=== PATIENT | male | born 1935 | race Caucasian/White ===

== ENCOUNTER 2017-06-01 00:09 | Emergency (ER) | payer MEDICARE, OTHER ==
[2017-06-01 00:18] VITALS: BP 131/76; PULSE 100; O2SAT 94
[2017-06-01] MEDS ORDERED: TYLENOL 325 MG PO ONE (00:28)
--- NOTE | 2017-06-01 00:31 | ERPHSYRPT ---
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 PT DENIES HEADACHE, NECK PAIN, ABDOMINAL PAIN , CHEST PAIN, LOC. Allergies/Adverse Reactions: iodine Allergy (Severe, Verified 06/01/17 00:22) Difficulty Breathing shellfish derived Allergy (Severe, Verified 06/01/17 00:22) Difficulty Breathing Home Medications: Warfarin Sodium 5 mg [Coumadin 5 MG] 5 mg PO HS 11/09/12 [History] Alprazolam 0.25 mg [xanAX 0.25 MG] 0.25 mg PO TIDPRN PRN 06/04/14 [History ] Aspirin 81 gm Chew [Baby Aspirin 81 mg Chew] 81 mg PO DAILY 06/04/14 [ History] Bumetanide 1 mg [Bumex 1 mg] 1.5 mg PO BID 06/04/14 [History] Diclofenac Sodium/Misoprostol [Diclofenac-Misoprost 50-200 Tb] 50,200 mg PO BID 06/04/14 [History] Digoxin 0.125 mg Tablet [Lanoxin 0.125MG TABLET] 125 mcg PO HS 06/04/14 [ History] Docusate Sodium 100 mg [Colace 100 MG] 100 mg PO BID 06/04/14 [History] Metolazone 5 mg PO DAILY 06/04/14 [History] Metoprolol Succinate 50 mg [Toprol Xl 50 MG] 25 mg PO BID 06/04/14 [ History] Potassium Chloride [Klor-Con 10] 10 meq PO TID 06/04/14 [History] Fexofenadine HCl [Liyah Allergy] 180 mg PO DAILY 08/29/15 [History] Warfarin Sodium 2 mg [Coumadin 2 MG] 2 mg PO HS 08/29/15 [History] Hx Tetanus, Diphtheria Vaccination/Date Given: No Hx Influenza Vaccination/Date Given: Yes (2012) Hx Pneumococcal Vaccination/Date Given: Yes (2012) - Review of Systems Cardiac: No Chest Pain Abdominal/Gastrointestinal: No Abdominal Pain Musculoskeletal: Joint Pain (RIGHT SHOULDER/ARM PAIN TONIGHT.), Other (CHRONIC ANKLE EDEMA FOR YEARS.), No Neck Pain Neurological: No Headache All Other Systems: Reviewed and Negative - Past Medical History Pertinent Past Medical History: Yes Neurological History: Peripheral Neuropathy ENT History: No Pertinent History Cardiac History: Arrhythmia Respiratory History: COPD, Sleep Apnea, Other Endocrine Medical History: No Pertinent History Musculoskeletal History: Osteoarthritis GI Medical History: No Pertinent History History: Other Psycho-Social History: No Pertinent History Male Reproductive Disorders: No Pertinent History Other Medical History: 2L O2 at night, - Past Surgical History Past Surgical History: Yes Neuro Surgical History: No Pertinent History Cardiac: No Pertinent History Respiratory: No Pertinent History Gastrointestinal: No Pertinent History Genitourinary: No Pertinent History Musculoskeletal: Joint Replacement Male Surgical History: Prostate Surgery Other Surgical History: HIP 2009. TURP 1999. - Social History Smoking Status: Former smoker Exposure to second hand smoke: No Drug Use: none Patient Lives Alone: No - Nursing Vital Signs Nursing Vital Signs: Initial Vital Signs Temperature 99.5 F 06/01/17 00:16 Pulse Rate 100 H 06/01/17 00:16 Respiratory Rate 24 06/01/17 00:16 Blood Pressure 131/76 06/01/17 00:16 O2 Sat by Pulse Oximetry 94 L 06/01/17 00:16 Pain Scale Pain Intensity 8 - Physical Exam General Appearance: alert Eyes, Ears, Nose, Throat Exam: pharynx normal, moist mucous membranes Neck Exam: normal inspection, full range of motion Cardiovascular/Respiratory Exam: chest non-tender, normal breath sounds, heart sounds normal Abdominal Exam: soft, No tenderness Back Exam: normal range of motion Shoulder Exam: limited ROM (LIMITED ROM OF THE RIGHT SHOULDER WITH ~ 2 CM DIAMETER BRUISING OF THE RIGHT UPPER SCAPULA; FULL ROM OF THE RIGHT ELBOW, WRIST AND HAND; ALL DIGITIS OF THE RIGHT HAND HAVE GOOD SENSATION AND CAPILLARY REFILL.) Elbow/Forearm Exam: normal ROM Wrist Exam: normal ROM Hand Exam: normal ROM Neuro/Tendon Exam: normal sensation Mental Status Exam: alert, cooperative SpO2 Interpretation: normal SpO2: 94 Oxygen Delivery: Room Air - Course Nursing assessment & vital signs reviewed: Yes - Radiology Exams Right Shoulder X-ray Interpretation: Teleradiologist Report, No Fracture Ordered Tests: Active Orders 24 hr Category Date Time Status Sling Application STAT Care 06/01/17 00:28 Active HUMERUS Stat Exams 06/01/17 00:30 Taken SHOULDER Stat Exams 06/01/17 00:28 Ordered Medication Summary Discontinued Medications Generic Name Dose Route Start Last Admin Trade Name Meliza PRN Reason Stop Dose Admin Acetaminophen 650 mg 06/01/17 00:28 06/01/17 00:35 Tylenol 325 Mg PO 06/01/17 00:29 650 mg STAT ONE Administration Acetaminophen Confirm 06/01/17 00:33 Tylenol 325 Mg Administered 06/01/17 00:34 Dose 650 mg .ROUTE .STK-MED ONE Al Hydrox/Mg Hydrox/Simethicone Confirm 06/01/17 00:59 Maalox Es 30 Ml Unit Dose Administered 06/01/17 01:00 Dose 30 ml .ROUTE .STK-MED ONE Belladonna Alkaloids/Phenobarbital 60 ml 06/01/17 00:49 06/01/17 01:03 Gi Cocktail 60ml (Belladonn/Phenobarb/Lidoc* PO 06/01/17 00:50 60 ml STAT ONE Administration Belladonna Alkaloids/Phenobarbital Confirm 06/01/17 00:59 Donnatol Liquid Administered 06/01/17 01:00 Dose 3.24 mg .ROUTE .STK-MED ONE Lidocaine HCl Confirm 06/01/17 00:59 Xylocaine Hcl Viscous * Administered 06/01/17 01:00 Dose 1 ml .ROUTE .STK-MED ONE - Departure Time of Disposition: :17 Departure Disposition: Home Clinical Impression: CONTUSION/SPRAIN OF RIGHT SHOULDER Condition: Stable Critical Care Time: No Instructions: Contusion, Prevent Falls Additional Instructions: FOLLOW UP WITH PRIVATE DOCTOR TOMORROW. WEAR RIGHT ARM SLING FOR COMFORT.
[2017-06-01] MEDS ORDERED: TYLENOL 325 MG ONE (00:33)
[2017-06-01] MEDS ORDERED: GI COCKTAIL 60ML (Belladonn/Phenobarb/Lidoc PO ONE (00:49)
[2017-06-01] MEDS ORDERED: XYLOCAINE HCl Viscous ONE (00:59)
[2017-06-01] MEDS ORDERED: Donnatol Liquid ONE (00:59)
[2017-06-01] MEDS ORDERED: MAALOX ES 30 ML UNIT DOSE ONE (00:59)
--- NOTE | 2017-06-01 10:28 | XRAY ---
Exam: Two-view portable right humerus films from 06/01/2017. Comparison: None. Indication: Fall, upper arm and shoulder pain. Findings: It appears that AP internal rotation and AP external rotation views of the right humerus were obtained. One of the images may be slightly obliqued. I see no acute fracture of the right shoulder or visualized right humerus. The most distal aspect of the humerus near the right elbow joint has not been included on the images. There is elevation of the right humeral head with respect to the glenoid with a decreased space between the acromion and the superior margin of the right humeral head. This is consistent with chronic rotator cuff disease. Mild osteoarthritic spurring of the right acromioclavicular joint is seen. I believe there is some granulomatous calcifications at the inferior margin of the right hilum. Impression: 1. I see no acute fracture of the right shoulder or visualized right humerus shaft. 2. Findings consistent with chronic rotator cuff disease of the right shoulder. 3. Mild osteoarthritis affecting the acromioclavicular joint of the right shoulder girdle.
== END 2017-06-01 01:27 | disposition home or self-care (01) ==
LOC: ED 00:09
DX: S40.011A Contusion of right shoulder, initial encounter (principal); S43.401A Unspecified sprain of right shoulder joint, initial encounter; W18.09XA Striking against other object with subsequent fall, initial encounter; Z79.01 Long term (current) use of anticoagulants
CPT/HCPCS: 73060; 99282; 99283; A9270-GY

== ENCOUNTER 2017-07-15 07:44 | Inpatient (IN) | payer MEDICARE, OTHER ==
--- NOTE | 2017-07-15 14:14 | XRAY ---
Indication: CHF. Comparison: December 19, 2015. Portable chest again hyperinflated with scattered tiny calcific granulomas. No focal infiltrate, consolidation, or large effusion. Heart is not enlarged for AP portable technique. Vascularity normal. Bony thorax intact again with osteopenia and degenerative changes. Impression: Nonacute chest with chronic features.
[2017-07-15 14:43] LABS: Mean Cell Volume 91.6 fl (78-100); Mean Corpuscular Hemoglobin 30.3 pg (26-32); Mean Platelet Volume 10.9 fl (6-9.5); Platelet Count 320 K/mm3 (150-450); Red Blood Count 4.55 M/mm3 (4.1-5.6); Red Cell Distribution Width 13.8 % (11.5-14.0); White Blood Count 10.4 K/mm3 (4.0-10.5)
[2017-07-15 14:58] LABS: ANION GAP 13.1 MEQ/L (5-15); BLOOD UREA NITROGEN 23 mg/dL (9-20); CHLORIDE 90 mEq/L (98-107); Carbon Dioxide 30.8 mEq/L (21-32); Glucose 207 MG/DL (70-110); SODIUM 132 mEq/L (136-145)
[2017-07-15 15:00] LABS: Potassium 2.7 mEq/L (3.5-5.1); TROPONIN < 0.017 ng/ml (0.000-0.056)
[2017-07-15] MEDS ORDERED: PROVENTIL COMMON CANISTER IH SCH (15:00)
[2017-07-15] MEDS ORDERED: NON-FORMULARY ITEM (Fluticasone Propionate [Flonase Allergy Relief] 1 SPRAY) IH PRN (15:14)
[2017-07-15] MEDS ORDERED: Flonase NASAL NS PRN (15:21)
[2017-07-15] MEDS ORDERED: MEDICATION INTERVENTION MC PRN (15:23)
[2017-07-15] MEDS: Klor Con 10 MEQ PO SCH ×2 (15:26→21:19)
[2017-07-15] MEDS: xanAX 0.25 MG PO PRN (15:29)
[2017-07-15] MEDS ORDERED: Sodium Chloride 0.9% 500 ML 500 ML IV SCH (15:45)
[2017-07-15] MEDS: POTASSIUM CHLORIDE 20 mEq IN WATER 100ML 20 MEQ/100 ML BAG IV SCH ×2 (16:10→21:11)
[2017-07-15] MEDS: BUMEX 1 MG IV SCH (16:10)
[2017-07-15] MEDS ORDERED: PROVENTIL COMMON CANISTER IH PRN (16:12)
[2017-07-15] MEDS ORDERED: Ventolin Hfa MDI IH SCH (17:00)
[2017-07-15] MEDS: Coumadin 5 MG PO SCH (18:25)
[2017-07-15] MEDS: Coumadin 2 MG PO SCH (18:25)
[2017-07-15] MEDS: Advair Hfa 230/21 Mcg COMMON CANISTER IH SCH (19:58)
[2017-07-15] MEDS: Toprol-Xl 25MG Tablets PO SCH (21:19)
[2017-07-15] MEDS: ARTHROTEC PO SCH (21:19)
[2017-07-15] MEDS ORDERED: BUMEX 1 MG PO SCH (22:00)
[2017-07-15] MEDS ORDERED: NON-FORMULARY ITEM (Budesonide/Formoterol Fumarate [Symbicort 80-4.5 Mcg Inhaler] 2 PUFFS) PO SCH (22:00)
[2017-07-16 06:02] LABS: ANION GAP 12.2 MEQ/L (5-15); BLOOD UREA NITROGEN 26 mg/dL (9-20); CHLORIDE 91 mEq/L (98-107); Glucose 140 MG/DL (70-110); Potassium 3.1 mEq/L (3.5-5.1); SODIUM 130 mEq/L (136-145)
--- NOTE | 2017-07-16 07:21 | PCM.NOTE ---
Date and Time: 07/16/17718 Subjective Assessment: doing ok - Review of Systems Constitutional: No Fever, No Chills Eyes: No Symptoms Ears, Nose, & Throat: No Symptoms Respiratory: Orthopnea, No Cough, No Short Of Breath Cardiac: No Chest Pain, No Edema, No Syncope Abdominal/Gastrointestinal: No Abdominal Pain, No Nausea, No Vomiting, No Diarrhea Genitourinary Symptoms: No Dysuria Musculoskeletal: No Back Pain, No Neck Pain Skin: No Rash Neurological: No Dizziness, No Focal Weakness, No Sensory Changes Psychological: No Symptoms Endocrine: No Symptoms Hematologic/Lymphatic: No Symptoms Immunological/Allergic: No Symptoms Objective Exam General Appearance: no apparent distress, alert Neurologic Exam: alert, oriented x 3, cooperative, normal mood/affect, nml cerebellar function, sensation nml, No motor deficits Skin Exam: normal color, warm, dry Eye Exam: PERRL, EOMI, eyes nml inspection Ears, Nose, Throat Exam: normal ENT inspection, pharynx normal, moist mucous membranes Neck Exam: normal inspection, non-tender, supple, full range of motion Respiratory Exam: normal breath sounds, lungs clear, No respiratory distress Cardiovascular Exam: regular rate/rhythm, normal heart sounds Gastrointestinal/Abdomen Exam: soft, No tenderness, No mass Extremity Exam: normal inspection, normal range of motion, pedal edema Back Exam: normal inspection, normal range of motion, No CVA tenderness, No vertebral tenderness Male Genitalia Exam: deferred Rectal Exam: deferred OBJECTIVE DATA Vital Signs: Vital Signs - 24 hr Temp Pulse Resp BP Pulse Ox 07/16/17 04:00 98.9 F 100 H 15 119/74 97 07/15/17 23:41 97.9 F 108 H 21 154/83 93 L 07/15/17 19:58 88 19 94 L 07/15/17 19:57 97.6 F 97 H 18 119/69 92 L 07/15/17 16:00 97.7 F 94 H 20 127/72 94 L 07/15/17 15:34 89 20 94 L 07/15/17 13:54 97.8 F 112 H 20 144/78 94 L 07/15/17 13:47 94 L Oxygen-Last 24 hours Oxygen Flowrate (L/min)-RT 2 Pain Assessment - Last Documented Pain Intensity 0 Pain Scale Used 0-10 Pain Scale Intake and Output: Intake & Output 07/13/17 07/14/17 07/15/17 07/16/17 11:59 11:59 11:59 11:59 Intake Total 1280 Output Total 2250 Balance -970 Weight 115.984 kg Lab Results: Lab Results-Last 24 Hours 07/15/17 07/15/17 07/16/17 Range/Units 14:20 14:20 05:31 WBC 10.4 (4.0-10.5) K/mm3 RBC 4.55 (4.1-5.6) M/mm3 Hgb 13.8 (12.5-18.0) gm/dl Hct 41.7 L (42-50) % MCV 91.6 (78-100) fl MCH 30.3 (26-32) pg MCHC 33.1 (32-36) g/dl RDW 13.8 (11.5-14.0) % Plt Count 320 (150-450) K/mm3 MPV 10.9 H (6-9.5) fl Sodium 132 L 130 L (136-145) mEq/L Potassium 2.7 L* 3.1 L (3.5-5.1) mEq/L Chloride 90 L 91 L (98-107) mEq/L Carbon Dioxide 30.8 30.0 (21-32) mEq/L Anion Gap 13.1 12.2 (5-15) MEQ/L BUN 23 H 26 H (9-20) mg/dL Creatinine 1.35 H 1.19 (0.55-1.30) mg/dl Estimated GFR 54 > 60 ML/MIN Glucose 207 H 140 H (70-110) MG/DL Calcium 9.3 9.2 (8.5-10.1) mg/dL Troponin I < 0.017 (0.000-0.056) ng/ml NT-Pro-B Natriuret Pep 783 H 745 H (0-450) pg/ml Radiology Exams: Radiology Procedures Category Date Time Status CHEST 1 VIEW (PORTABLE) Stat Exams 07/15/17 13:49 Completed ECHO W/2D AND DOPPLER [US] Routine Exams 07/15/17 13:47 Taken Assessment/Plan (1) Acute CHF (congestive heart failure) Current Visit: Yes Status: Acute Qualifiers: Congestive heart failure type: combined Qualified Code(s): I50.41 - Acute combined systolic (congestive) and diastolic (congestive) heart failure Code(s): I50.9 - HEART FAILURE, UNSPECIFIED (2) Sleep apnea in adult Current Visit: No Status: Chronic Code(s): G47.33 - OBSTRUCTIVE SLEEP APNEA (ADULT) (PEDIATRIC) (3) Atrial fibrillation Current Visit: Yes Status: Chronic Code(s): I48.91 - UNSPECIFIED ATRIAL FIBRILLATION (4) Hypertensive heart disease with congestive heart failure Current Visit: Yes Status: Chronic Code(s): I11.0 - HYPERTENSIVE HEART DISEASE WITH HEART FAILURE
[2017-07-16] MEDS: Advair Hfa 230/21 Mcg COMMON CANISTER IH SCH ×2 (07:45→18:50)
[2017-07-16] MEDS ORDERED: POTASSIUM CHLORIDE 20 mEq IN WATER 100ML 20 MEQ/100 ML BAG IV ONE (08:00)
[2017-07-16] MEDS: Toprol-Xl 25MG Tablets PO SCH ×2 (08:56→21:13)
[2017-07-16] MEDS: Lanoxin 0.125MG TABLET PO SCH (08:56)
[2017-07-16] MEDS: CLARITIN 10 MG PO SCH (08:56)
[2017-07-16] MEDS: Klor Con 10 MEQ PO SCH ×3 (08:57→21:13)
[2017-07-16] MEDS: BUMEX 1 MG IV SCH ×2 (08:57→17:21)
[2017-07-16] MEDS: Zaroxolyn 2.5 MG PO SCH (08:57)
[2017-07-16] MEDS: ECOTRIN 81 MG PO SCH (08:57)
[2017-07-16] MEDS: ARTHROTEC PO SCH ×2 (08:58→21:13)
[2017-07-16] MEDS ORDERED: NON-FORMULARY ITEM (Metolazone [Metolazone] 5 MG) PO SCH (10:00)
[2017-07-16] MEDS ORDERED: NON-FORMULARY ITEM (Fexofenadine Hcl [Allegra Allergy] 180 MG) PO SCH (10:00)
[2017-07-16] MEDS: Coumadin 2 MG PO SCH (17:19)
[2017-07-16] MEDS: Coumadin 5 MG PO SCH (17:19)
[2017-07-16] MEDS: xanAX 0.25 MG PO PRN (21:19)
[2017-07-17 05:59] LABS: INR 4.16 (0.8-3.0); PROTIME 46.9 SECONDS (8.83-12.87)
--- NOTE | 2017-07-17 07:45 | PCM.NOTE ---
Date and Time: 07/17/17 0744 Subjective Assessment: doing better, swelling on legs is down. - Review of Systems Constitutional: No Fever, No Chills Eyes: No Symptoms Ears, Nose, & Throat: No Symptoms Respiratory: No Cough, No Short Of Breath Cardiac: Edema, No Chest Pain, No Syncope Abdominal/Gastrointestinal: No Abdominal Pain, No Nausea, No Vomiting, No Diarrhea Genitourinary Symptoms: No Dysuria Musculoskeletal: No Back Pain, No Neck Pain Skin: No Rash Neurological: No Dizziness, No Focal Weakness, No Sensory Changes Psychological: No Symptoms Endocrine: No Symptoms Hematologic/Lymphatic: No Symptoms Immunological/Allergic: No Symptoms Objective Exam General Appearance: no apparent distress, alert Neurologic Exam: alert, oriented x 3, cooperative, normal mood/affect, nml cerebellar function, sensation nml, No motor deficits Skin Exam: normal color, warm, dry Eye Exam: PERRL, EOMI, eyes nml inspection Ears, Nose, Throat Exam: normal ENT inspection, pharynx normal, moist mucous membranes Neck Exam: normal inspection, non-tender, supple, full range of motion Respiratory Exam: normal breath sounds, lungs clear, No respiratory distress Cardiovascular Exam: regular rate/rhythm, normal heart sounds Gastrointestinal/Abdomen Exam: soft, No tenderness, No mass Extremity Exam: normal inspection, normal range of motion Back Exam: normal inspection, normal range of motion, No CVA tenderness, No vertebral tenderness Male Genitalia Exam: deferred Rectal Exam: deferred OBJECTIVE DATA Vital Signs: Vital Signs - 24 hr Temp Pulse Resp BP BP Pulse Ox 07/17/17 06:58 98.2 F 95 H 18 141/73 95 07/17/17 03:51 98.0 F 97 H 16 143/80 94 L 07/16/17 23:49 97.9 F 89 17 147/73 94 L 07/16/17 20:00 98.2 F 86 18 127/68 94 L 07/16/17 19:09 91 H 20 94 L 07/16/17 16:00 97.9 F 93 H 20 113/63 93 L 07/16/17 12:10 98.3 F 67 20 122/59 93 L 07/16/17 08:56 76 113/65 07/16/17 07:47 105 H 18 92 L Oxygen-Last 24 hours O2 Percentage 2 Liters = 28% Pain Assessment - Last Documented Pain Intensity 0 Pain Scale Used 0-10 Pain Scale Intake and Output: Intake & Output 07/14/17 07/15/17 07/16/17 07/17/17 11:59 11:59 11:59 11:59 Intake Total 1880 2360 Output Total 2650 1600 Balance -770 760 Weight 114.107 kg 117.072 kg Lab Results: Lab Results-Last 24 Hours 07/16/17 07/17/17 Range/Units 13:00 05:35 INR 4.16 H (0.8-3.0) Potassium 3.1 L (3.5-5.1) mEq/L Radiology Exams: Radiology Procedures Category Date Time Status CHEST 1 VIEW (PORTABLE) Stat Exams 07/15/17 13:49 Completed ECHO W/2D AND DOPPLER [US] Routine Exams 07/15/17 13:47 Taken Multi-Disciplinary Progress Notes: Multi-Disciplinary Progress Notes 07/17/17 01:27 Respiratory Note by Rosanna Oneill LATE ENTRY 2200 PT HAVING DIFFICULT TIME WITH GETTING A GOOD SEAL WITH MASK FROM HOME. TRIED LG DIPOSABLE MASK WITH DISPOSABLE CIRCUIT WITH SOME IMPROVEMENT Initialized on 07/17/17 01:27 - END OF NOTE Assessment/Plan (1) Acute CHF (congestive heart failure) Current Visit: Yes Status: Acute Qualifiers: Congestive heart failure type: combined Qualified Code(s): I50.41 - Acute combined systolic (congestive) and diastolic (congestive) heart failure Assessment & Plan: improving Code(s): I50.9 - HEART FAILURE, UNSPECIFIED (2) Sleep apnea in adult Current Visit: No Status: Chronic Code(s): G47.33 - OBSTRUCTIVE SLEEP APNEA (ADULT) (PEDIATRIC) (3) Atrial fibrillation Current Visit: Yes Status: Chronic Code(s): I48.91 - UNSPECIFIED ATRIAL FIBRILLATION (4) Hypertensive heart disease with congestive heart failure Current Visit: Yes Status: Chronic Code(s): I11.0 - HYPERTENSIVE HEART DISEASE WITH HEART FAILURE
[2017-07-17] MEDS: Advair Hfa 230/21 Mcg COMMON CANISTER IH SCH ×2 (07:57→19:34)
[2017-07-17 08:34] LABS: ALBUMIN 2.9 g/dL (3.4-5.0); ANION GAP 10.5 MEQ/L (5-15); BLOOD UREA NITROGEN 28 mg/dL (9-20); CHLORIDE 89 mEq/L (98-107); Glucose 137 MG/DL (70-110); PHOSPHOROUS 3.6 mg/dL (2.6-4.7); Potassium 3.1 mEq/L (3.5-5.1); SODIUM 128 mEq/L (136-145)
[2017-07-17] MEDS ORDERED: POTASSIUM CHLORIDE 20 mEq IN WATER 100ML 20 MEQ/100 ML BAG IV ONE (09:00)
[2017-07-17] MEDS ORDERED: Sodium Chloride 0.9% 500 ML 500 ML IV SCH (10:00)
[2017-07-17] MEDS ORDERED: Klor Con 10 MEQ PO ONE (10:36)
[2017-07-17] MEDS ORDERED: Zofran 4 MG/2 ML VIAL IV ONE (10:45)
[2017-07-17] MEDS ORDERED: K-LYTE 25 MEQ PO SCH (10:45)
[2017-07-17] MEDS ORDERED: ZOFRAN ODT 4 MG PO ONE (10:48)
[2017-07-17] MEDS: Zaroxolyn 2.5 MG PO SCH (11:00)
[2017-07-17] MEDS: xanAX 0.25 MG PO PRN (11:03)
[2017-07-17] MEDS: Lanoxin 0.125MG TABLET PO SCH (11:04)
[2017-07-17] MEDS: ARTHROTEC PO SCH ×2 (11:04→21:30)
[2017-07-17] MEDS: CLARITIN 10 MG PO SCH (11:04)
[2017-07-17] MEDS: Toprol-Xl 25MG Tablets PO SCH ×2 (11:04→21:30)
[2017-07-17] MEDS: ECOTRIN 81 MG PO SCH (11:05)
[2017-07-17] MEDS: Klor Con 10 MEQ PO SCH ×3 (11:05→21:30)
[2017-07-17] MEDS ORDERED: Ambien 5 MG Tablet PO PRN (11:17)
[2017-07-17] MEDS: BUMEX 1 MG IV SCH ×2 (12:02→17:11)
[2017-07-17] MEDS: TYLENOL 325 MG PO PRN ×2 (12:06→17:56)
[2017-07-17] MEDS ORDERED: BUMEX 1 MG PO SCH (17:00)
[2017-07-18 05:50] LABS: INR 3.52 (0.8-3.0); PROTIME 39.6 SECONDS (8.83-12.87)
[2017-07-18] MEDS: CLARITIN 10 MG PO SCH (09:09)
[2017-07-18] MEDS: Zaroxolyn 2.5 MG PO SCH (09:09)
[2017-07-18] MEDS: Toprol-Xl 25MG Tablets PO SCH (09:09)
[2017-07-18] MEDS: xanAX 0.25 MG PO PRN (09:09)
[2017-07-18] MEDS: ARTHROTEC PO SCH (09:10)
[2017-07-18] MEDS: Lanoxin 0.125MG TABLET PO SCH (09:10)
[2017-07-18] MEDS: Klor Con 10 MEQ PO SCH ×2 (09:10→14:18)
[2017-07-18] MEDS: ECOTRIN 81 MG PO SCH (09:10)
[2017-07-18] MEDS: BUMEX 1 MG IV SCH (09:11)
[2017-07-18 09:17] LABS: ANION GAP 11.6 MEQ/L (5-15); Carbon Dioxide 31.8 mEq/L (21-32); MAGNESIUM 1.3 mg/dL (1.8-2.4)
[2017-07-18 09:22] LABS: Potassium 3.4 mEq/L (3.5-5.1)
[2017-07-18] MEDS: Advair Hfa 230/21 Mcg COMMON CANISTER IH SCH (09:43)
[2017-07-18] MEDS ORDERED: Colace 100 MG PO ONE (10:00)
--- NOTE | 2017-07-18 10:52 | ECHO ---
Transthoracic echocardiographic examination and color Doppler was done on 07/15/2017. INDICATION: Congestive heart failure. IMPRESSION: 1) MILD LEFT VENTRICULAR HYPOKINESIA. EJECTION FRACTION OF AROUND 50%. 2) TRACE MITRAL REGURGITATION. 3) MILD TRICUSPID REGURGITATION. RIGHT VENTRICULAR SYSTOLIC PRESSURE OF 24 MM OF MERCURY. 4) LEFT VENTRICULAR HYPERTROPHY. 5) MILDLY DILATED RIGHT SIDE CHAMBERS. 6) MODERATELY DILATED LEFT ATRIUM. 7) MODERATE PULMONIC INSUFFICIENCY. The left ventricle is visualized and demonstrated mild left ventricular hypokinesia. Ejection fraction of around 50%. The mitral valve is seen and this opens adequately. There is trace mitral regurgitation. Left atrium is moderately enlarged. The aortic valve opens adequately. There is no significant gradient across left ventricular outflow tract. The right side chambers are mildly dilated. There is mild tricuspid regurgitation. The right ventricular systolic pressure of 24 mm of Mercury. There is also moderate pulmonic insufficiency.
--- NOTE | 2017-07-18 13:18 | PCM.DS ---
Discharge Summary Date of Admission: 07/17/17 07:44 Admitting Physician: VISHNU GARCIA Consults: Consults on Case 07/15/17 13:47 Nutritional Consult Primary Care Provider: VISHNU GARCIA Allergies Allergies iodine Allergy (Severe, Verified 06/01/17 00:22) Difficulty Breathing shellfish derived Allergy (Severe, Verified 06/01/17 00:22) Difficulty Breathing Hospital Summary - Hospital Course Hospital Course: Chief Complaint Diagnosis chf Allergies Allergy/AdvReac Type Severity Reaction Status Date / Time iodine Allergy Severe Difficulty Verified 06/01/17 00:22 Breathing shellfish derived Allergy Severe Difficulty Verified 06/01/17 00:22 Breathing Vital Signs (Last 24 hours) Temp Pulse Resp BP Pulse Ox 07/18/17 09:43 92 H 18 95 07/18/17 09:10 92 H 07/18/17 07:14 98.3 F 88 18 130/74 97 07/18/17 03:51 98.1 F 107 H 18 134/81 92 L 07/18/17 00:00 97.9 F 95 H 16 122/72 95 07/17/17 19:56 97.8 F 70 18 115/64 92 L 07/17/17 19:39 90 18 95 07/17/17 16:17 98.2 F 92 H 18 134/80 94 L 07/17/17 16:00 98.2 F 100 H 18 164/76 91 L Home Medications Medication Instructions Recorded Confirmed Last Taken Type Acetaminophen 325 mg [Tylenol 650 mg PO Q4H PRN PRN 07/15/17 07/15/17 Unknown History 325 mg] Albuterol Sulfate [Proair Hfa] 2 puffs PO QID 07/15/17 07/15/17 Unknown History Budesonide/Formoterol Fumarate 2 puffs PO BID 07/15/17 07/15/17 07/15/17 09:00 History [Symbicort 80-4.5 Mcg Inhaler] Fluticasone Propionate [Flonase 1 spray IH DAILY PRN PRN 07/15/17 07/15/17 Unknown History Allergy Relief] Current Medications Generic Name Dose Route Start Last Admin Trade Name Freq PRN Reason Stop Dose Admin Acetaminophen 650 mg 07/15/17 15:14 07/17/17 17:56 Tylenol 325 Mg PO 08/14/17 15:13 650 mg Q4H PRN PRN Administration PAIN Albuterol Sulfate 2 puff 07/15/17 16:12 07/17/17 19:35 Proventil Common Canister IH 08/14/17 16:11 2 puff Q4HPRN PRN Administration SHORTNESS OF BREATH/WHEEZING Alprazolam 0.25 mg 07/15/17 15:14 07/18/17 09:09 Xanax 0.25 Mg PO 08/14/17 15:13 0.25 mg TIDPRN PRN Administration ANXIETY Aspirin 81 mg 07/16/17 10:00 07/18/17 09:10 Ecotrin 81 Mg PO 08/15/17 09:59 81 mg DAILY JONY Administration Bumetanide 1 mg 07/17/17 11:25 07/18/17 09:11 Bumex 1 Mg IV 08/16/17 11:24 1 mg BID DIURETIC JONY Administration Diclofenac/Misoprostol 50 mg 07/15/17 22:00 07/18/17 09:10 Arthrotec 50 Tablet Ec PO 08/14/17 21:59 50 mg BID JONY Administration Digoxin 0.125 mg 07/16/17 10:00 07/18/17 09:10 Lanoxin 0.125mg Tablet PO 08/15/17 09:59 0.125 mg DAILY JONY Administration Fluticasone Propionate 0 gm 07/15/17 15:21 Flonase Nasal NS 08/14/17 15:20 DAILY PRN PRN ALLERGIES Sodium Chloride 500 mls @ 50 mls/hr 07/17/17 10:00 Sodium Chloride 0.9% 500 Ml IV 08/16/17 09:59 .Q10H JONY Loratadine 10 mg 07/16/17 10:00 07/18/17 09:09 Claritin 10 Mg PO 08/15/17 09:59 10 mg DAILY JONY Administration Metolazone 5 mg 07/16/17 10:00 07/18/17 09:09 Zaroxolyn 2.5 Mg PO 08/15/17 09:59 5 mg DAILY JONY Administration Metoprolol Succinate 25 mg 07/15/17 22:00 07/18/17 09:09 Toprol-Xl 25mg Tablets PO 08/14/17 21:59 25 mg BID JONY Administration Potassium Chloride 10 meq 07/15/17 15:00 07/18/17 09:10 Klor Con 10 Meq PO 08/14/17 14:59 10 meq TID JONY Administration Fluticasone/Salmeterol 2 puff 07/15/17 19:00 07/18/17 09:43 Advair Hfa 230/21 Mcg Common Canister* IH 08/14/17 18:59 2 puff BIDRT JONY Administration Warfarin Sodium 5 mg 07/18/17 18:00 Coumadin 5 Mg PO 08/17/17 17:59 DAILY@1800 JONY Zolpidem Tartrate 5 mg 07/17/17 11:17 07/17/17 23:49 Ambien 5 Mg Tablet PO 08/16/17 11:16 5 mg HS PRN PRN Administration INSOMNIA Discontinued Medications Generic Name Dose Route Start Last Admin Trade Name Freq PRN Reason Stop Dose Admin Albuterol Sulfate 2 puff 07/15/17 15:00 Proventil Common Canister IH 08/14/17 14:59 QIDRT JONY Bumetanide 1 mg 07/15/17 17:00 07/16/17 17:21 Bumex 1 Mg IV 08/14/17 16:59 1 mg BID DIURETIC JONY Administration Bumetanide 1 mg 07/17/17 17:00 Bumex 1 Mg PO 08/16/17 16:59 BID DIURETIC JONY Docusate Sodium 200 mg 07/18/17 10:00 07/18/17 09:56 Colace 100 Mg PO 07/18/17 10:01 200 mg NOW ONE Administration Potassium Chloride 20 meq in 100 mls @ 50 mls/hr 07/15/17 16:00 07/15/17 21: 11 Potassium Chloride 20 Meq In Water 100ml IV 07/15/17 19:59 50 mls/hr Q2H JONY Administration Sodium Chloride 500 mls @ 50 mls/hr 07/15/17 15:45 07/15/17 16:10 Sodium Chloride 0.9% 500 Ml IV 07/16/17 01:44 50 mls/hr .Q10H JONY Administration Potassium Chloride 20 meq in 100 mls @ 50 mls/hr 07/16/17 08:00 07/16/17 08: 09 Potassium Chloride 20 Meq In Water 100ml IV 07/16/17 09:59 50 mls/hr STAT ONE Administration Potassium Chloride 20 meq in 100 mls @ 50 mls/hr 07/17/17 09:00 07/17/17 09: 33 Potassium Chloride 20 Meq In Water 100ml IV 07/17/17 10:59 50 mls/hr STAT ONE Administration Ondansetron HCl 4 mg 07/17/17 10:45 Zofran 4 Mg/2 Ml Vial IV 07/17/17 10:46 ONCE ONE Ondansetron HCl 4 mg 07/17/17 10:48 07/17/17 11:05 Zofran Odt 4 Mg PO 07/17/17 10:49 4 mg ONCE ONE Administration Potassium Bicarbonate 50 meq 07/17/17 10:45 07/17/17 11:03 K-Lyte 25 Meq PO 08/16/17 10:44 50 meq STAT JONY Administration Warfarin Sodium 2.5 mg 07/15/17 18:00 07/16/17 17:19 Coumadin 2 Mg PO 08/14/17 17:59 2.5 mg EVENING MEAL JONY Administration Warfarin Sodium 5 mg 07/15/17 18:00 07/16/17 17:19 Coumadin 5 Mg PO 08/14/17 17:59 5 mg EVENING MEAL JONY Administration Intake & Output (Last 24 hours) 07/16/17 07/17/17 07/18/17 07/19/17 11:59 11:59 11:59 11:59 Intake Total 1880 2840 2860 Output Total 2650 2500 1000 350 Balance -693 556 5635 -350 Weight 114.107 kg 116.301 kg 118.473 kg Laboratory Results (Last 24 hours) 07/18/17 07/18/17 07/18/17 05:10 05:10 05:00 INR 3.52 H Cancelled Sodium Potassium 3.4 L Chloride Carbon Dioxide Anion Gap BUN Creatinine Estimated GFR Glucose Calcium Magnesium NT-Pro-B Natriuret Pep 07/18/17 05:00 INR Sodium 127 L Potassium 3.4 L Chloride 87 L Carbon Dioxide 31.8 Anion Gap 11.6 BUN 29 H Creatinine 1.39 H Estimated GFR 52 Glucose 152 H Calcium 8.4 L Magnesium 1.3 L NT-Pro-B Natriuret Pep 684 H Orders (Last 24 hours) Category Date Time Status Ambulate Patient TID Care 07/18/17 11:17 Active BMP Urgent Lab 07/18/17 05:00 Completed MAGNESIUM Urgent Lab 07/18/17 05:00 Completed NT PRO BNP Urgent Lab 07/18/17 05:00 Completed PROTIME WITH INR AM.LAB Lab 07/18/17 05:10 Completed Pot [Potassium] AM.LAB Lab 07/18/17 05:10 Completed Bumetanide 1 mg [Bumex 1 mg] Med 07/17/17 17:00 Discontinued 1 mg PO BID DIURETIC Docusate Sodium 100 mg [Colace 100 MG] Med 07/18/17 10:00 Discontinued 200 mg PO NOW ONE Warfarin Sodium 5 mg [Coumadin 5 MG] Med 07/18/17 18:00 Active 5 mg PO DAILY@1800 - Vitals & Intake/Output Vital Signs: Vital Signs Temperature 98.3 F 07/18/17 07:14 Pulse Rate 92 H 07/18/17 09:43 Respiratory Rate 18 07/18/17 09:43 Blood Pressure 130/74 07/18/17 07:14 O2 Sat by Pulse Oximetry 95 07/18/17 09:43 Oxygen-Last Documented O2 Percentage 2 Liters = 28% Intake & Output: Intake & Output 07/16/17 07/17/17 07/18/17 07/19/17 11:59 11:59 11:59 11:59 Intake Total 1880 2840 2860 Output Total 2650 2500 1000 350 Balance -107 972 9855 -350 Weight 114.107 kg 116.301 kg 118.473 kg - Lab Result Diagrams: 07/15/17 14:20 07/18/17 05:10 Lab Results-Last 24 Hrs: Lab Results-Last 24 Hours 07/18/17 07/18/17 07/18/17 Range/Units 05:00 05:00 05:10 INR Cancelled Sodium 127 L (136-145) mEq/L Potassium 3.4 L 3.4 L (3.5-5.1) mEq/L Chloride 87 L (98-107) mEq/L Carbon Dioxide 31.8 (21-32) mEq/L Anion Gap 11.6 (5-15) MEQ/L BUN 29 H (9-20) mg/dL Creatinine 1.39 H (0.55-1.30) mg/dl Estimated GFR 52 ML/MIN Glucose 152 H (70-110) MG/DL Calcium 8.4 L (8.5-10.1) mg/dL Magnesium 1.3 L (1.8-2.4) mg/dL NT-Pro-B Natriuret Pep 684 H (0-450) pg/ml 07/18/17 Range/Units 05:10 INR 3.52 H Sodium (136-145) mEq/L Potassium (3.5-5.1) mEq/L Chloride (98-107) mEq/L Carbon Dioxide (21-32) mEq/L Anion Gap (5-15) MEQ/L BUN (9-20) mg/dL Creatinine (0.55-1.30) mg/dl Estimated GFR ML/MIN Glucose (70-110) MG/DL Calcium (8.5-10.1) mg/dL Magnesium (1.8-2.4) mg/dL NT-Pro-B Natriuret Pep (0-450) pg/ml - Radiology Exams Ordered Rad Exams-Entire Visit: Imaging Report Continued Page: Name: KODAK WILSON Procedure Date: 07/15/17 Procedures: US/ECHO W/2D AND DOPPLER Technologist: Qi Rucker Transcribed: 07/18/171044 Clamshell Operator: Janina Smith Printed: [~ rep prt dt last] [~ rep prt tm last] Page: Imaging Report [~ rep ct labl] Technologist: Qi Rucker Transcribed: 07/18/17 104 Clamshell Operator: Janina Smith Printed: [~ rep prt dt last] [~ rep prt tm last] Page: Imaging Report [~ rep ct labl] [id number] US/ECHO W/2D AND DOPPLER Transthoracic echocardiographic examination and color Doppler was done on 2016. INDICATION: Congestive heart failure. IMPRESSION: 1) MILD LEFT VENTRICULAR HYPOKINESIA. EJECTION FRACTION OF AROUND 50%. 2) TRACE MITRAL REGURGITATION. 3) MILD TRICUSPID REGURGITATION. RIGHT VENTRICULAR SYSTOLIC PRESSURE OF 24 MM OF MERCURY. 4) LEFT VENTRICULAR HYPERTROPHY. 5) MILDLY DILATED RIGHT SIDE CHAMBERS. 6) MODERATELY DILATED LEFT ATRIUM. 7) MODERATE PULMONIC INSUFFICIENCY. The left ventricle is visualized and demonstrated mild left ventricular hypokinesia. Ejection fraction of around 50%. The mitral valve is seen and this opens adequately. There is trace mitral regurgitation. Left atrium is moderately enlarged. The aortic valve opens adequately. There is no significant gradient across left ventricular outflow tract. The right side chambers are mildly dilated. There is mild tricuspid regurgitation. The right ventricular systolic pressure of 24 mm of Mercury. There is also moderate pulmonic insufficiency. - Procedures and Test Procedures and Tests throughout Hospitalization: Therapy Orders & Screens 07/15/17 13:47 EKG STAT Comment: Diagnosis: CHF Oxygen NASAL CANNULA 2 lpm Comment: Diagnosis: CHF 07/15/17 16:12 Respiratory MDI PRN Comment: ALBUTEROL MDI Q4PRN Diagnosis: chf 07/15/17 19:00 Respiratory MDI BID Comment: ADVAIR 230/21 BID Diagnosis: chf 07/15/17 21:00 BiPap/CPAP Assessment ROUTINE Comment: HOME UNIT PER HOME SETTINGS Diagnosis: chf Discharge Exam General Appearance: no apparent distress, alert Neurologic Exam: alert, oriented x 3, cooperative, normal mood/affect, nml cerebellar function, sensation nml, No motor deficits Skin Exam: normal color, warm, dry Eye Exam: PERRL, EOMI, eyes nml inspection Ears, Nose, Throat Exam: normal ENT inspection, pharynx normal, moist mucous membranes Neck Exam: normal inspection, non-tender, supple, full range of motion Respiratory Exam: normal breath sounds, lungs clear, No respiratory distress Cardiovascular Exam: regular rate/rhythm, normal heart sounds Gastrointestinal/Abdomen Exam: soft, No tenderness, No mass Extremity Exam: normal inspection, normal range of motion Back Exam: normal inspection, normal range of motion, No CVA tenderness, No vertebral tenderness Male Genitalia Exam: deferred Rectal Exam: deferred Final Diagnosis/Problem List - Final Discharge Diagnosis/Problem (1) Acute CHF (congestive heart failure) Current Visit: Yes Status: Acute Assessment & Plan: improving (2) Sleep apnea in adult Current Visit: No Status: Chronic (3) Atrial fibrillation Current Visit: Yes Status: Chronic (4) Hypertensive heart disease with congestive heart failure Current Visit: Yes Status: Chronic (5) Hypokalemia due to loss of potassium Current Visit: Yes Status: Resolved - Discharge Discharge Date: 07/18/17 Disposition: Home, Self-Care Condition: Stable Prescriptions: Continue Warfarin Sodium 5 mg [Coumadin 5 MG] 5 mg PO EVENING MEAL Bumetanide 1 mg [Bumex 1 mg] 1.5 mg PO BID Digoxin 0.125 mg Tablet [Lanoxin 0.125MG TABLET] 125 mcg PO DAILY Diclofenac Sodium/Misoprostol [Diclofenac-Misoprost 50-200 Tb] 50,200 mg PO BID Metolazone 5 mg PO DAILY Potassium Chloride [Klor-Con 10] 10 meq PO TID Metoprolol Succinate 50 mg [Toprol Xl 50 MG] 25 mg PO BID Aspirin 81 gm Chew [Baby Aspirin 81 mg Chew] 81 mg PO DAILY Alprazolam 0.25 mg [xanAX 0.25 MG] 0.25 mg PO TIDPRN PRN PRN Reason: Anxiety Warfarin Sodium 2 mg [Coumadin 2 MG] 2.5 mg PO EVENING MEAL Fexofenadine HCl [Liyah Allergy] 180 mg PO DAILY Albuterol Sulfate [Proair Hfa] 2 puffs PO QID Budesonide/Formoterol Fumarate [Symbicort 80-4.5 Mcg Inhaler] 2 puffs PO BID Acetaminophen 325 mg [Tylenol 325 mg] 650 mg PO Q4H PRN PRN PRN Reason: Pain Fluticasone Propionate [Flonase Allergy Relief] 1 spray IH DAILY PRN PRN PRN Reason: Allergies Follow up with: VISHNU GARCIA MD [Primary Care Provider] - 1 Week
[2017-07-18 13:47] VITALS: BP 105/66; PULSE 82; O2SAT 93
[2017-07-18] MEDS ORDERED: Coumadin 5 MG PO SCH (18:00)
== END 2017-07-18 15:30 | disposition home or self-care (01) | DRG 293 ==
LOC: MED SURG 07:44 → OBSVTOIN 07-17 07:44
PROVIDERS: ADMIT General Practice; ATTEND General Practice
DX: I11.0 Hypertensive heart disease with heart failure (principal); I50.41 Acute combined systolic (congestive) and diastolic (congestive) heart failure; G47.30 Sleep apnea, unspecified; I48.91 Unspecified atrial fibrillation; J44.9 Chronic obstructive pulmonary disease, unspecified; R09.02 Hypoxemia; E87.6 Hypokalemia; Z79.01 Long term (current) use of anticoagulants; Z79.899 Other long term (current) drug therapy
CPT/HCPCS: 36415; 71010; 80048; 82040; 83036; 83735; 83880; 84100; 84132; 84484; 85027; 85610; 93005; 93268; 93306; 94640; 94760; 94762; A6457; G0378; J3480; Q0162; A9270-GY

== ENCOUNTER 2017-11-10 20:46 | Inpatient (IN) | payer MEDICARE, OTHER ==
--- NOTE | 2017-11-10 21:27 | ERPHSYRPT ---
- History of Present Illness Time Seen by Provider: 11/10/17 21:22 Source: patient Exam Limitations: no limitations Patient Subjective Stated Complaint: Rash to left foot Triage Nursing Assessment: Pt presents with complaints of swelling to left lower leg and into left foot. Pt denies pain, swelling present per normal for patient. Pt states he first noticed the rash approxiamtely an hour and a half prior to arrival. Pt denies other complaints at this time. No distress noted. Pt is A&O x4, bed in low position, call light in reach, family present at the bedside. Physician History: Pt developed swelling, redness, violaceous rash on his left lower leg and foot since this morning. He denies fever, chills, nausea, chest pain or shortness of breath, he denies taking antibiotics currently, he took something few weeks ago for cold, does not recall the name. Method of Injury: other (denies) Occurred: this morning Quality: constant Severity of Pain-Max: mild Severity of Pain-Current: mild Modifying Factors: Improves With: nothing Associated Symptoms: none Allergies/Adverse Reactions: iodine Allergy (Severe, Verified 06/01/17 00:22) Difficulty Breathing shellfish derived Allergy (Severe, Verified 06/01/17 00:22) Difficulty Breathing Home Medications: Warfarin Sodium 5 mg [Coumadin 5 MG] 5 mg PO EVENING MEAL 11/09/12 [ History] Alprazolam 0.25 mg [xanAX 0.25 MG] 0.25 mg PO TIDPRN PRN 06/04/14 [History ] Aspirin 81 gm Chew [Baby Aspirin 81 mg Chew] 81 mg PO DAILY 06/04/14 [ History] Bumetanide 1 mg [Bumex 1 mg] 1.5 mg PO BID 06/04/14 [History] Diclofenac Sodium/Misoprostol [Diclofenac-Misoprost 50-200 Tb] 50,200 mg PO BID 06/04/14 [History] Digoxin 0.125 mg Tablet [Lanoxin 0.125MG TABLET] 125 mcg PO DAILY [History] Metolazone 5 mg PO DAILY 06/04/14 [History] Metoprolol Succinate 50 mg [Toprol Xl 50 MG] 25 mg PO BID 06/04/14 [ History] Potassium Chloride [Klor-Con 10] 10 meq PO TID 06/04/14 [History] Fexofenadine HCl [Liyah Allergy] 180 mg PO DAILY 08/29/15 [History] Warfarin Sodium 2 mg [Coumadin 2 MG] 2.5 mg PO EVENING MEAL 08/29/15 [ History] Acetaminophen 325 mg [Tylenol 325 mg] 650 mg PO Q4H PRN PRN 07/15/17 [ History] Albuterol Sulfate [Proair Hfa] 2 puffs PO QID 07/15/17 [History] Budesonide/Formoterol Fumarate [Symbicort 80-4.5 Mcg Inhaler] 2 puffs PO BID [History] Fluticasone Propionate [Flonase Allergy Relief] 1 spray IH DAILY PRN PRN [History] Hx Tetanus, Diphtheria Vaccination/Date Given: Yes Hx Influenza Vaccination/Date Given: Yes Hx Pneumococcal Vaccination/Date Given: Yes Immunizations Up to Date: Yes - Review of Systems Constitutional: No Symptoms Skin: Cellulitis, Other (superficial ulcer on left lower leg, with clear oozing) All Other Systems: Reviewed and Negative - Past Medical History Pertinent Past Medical History: Yes Neurological History: Peripheral Neuropathy ENT History: No Pertinent History Cardiac History: Arrhythmia, Congestive Heart Failure Respiratory History: Asthma, CHF, COPD Endocrine Medical History: No Pertinent History Musculoskeletal History: Arthritis GI Medical History: No Pertinent History History: Other Psycho-Social History: No Pertinent History Male Reproductive Disorders: No Pertinent History Other Medical History: AT [facility] ON CPAP WITH 2 LITERS OXYGEN; - Past Surgical History Past Surgical History: Yes Neuro Surgical History: No Pertinent History Cardiac: No Pertinent History Respiratory: No Pertinent History Gastrointestinal: No Pertinent History Genitourinary: No Pertinent History Musculoskeletal: Joint Replacement Male Surgical History: Prostate Surgery Other Surgical History: HIP 2009. TURP 1999. - Social History Smoking Status: Former smoker Exposure to second hand smoke: No Drug Use: none Patient Lives Alone: No - Nursing Vital Signs Nursing Vital Signs: Initial Vital Signs Temperature 97.4 F 11/10/17 21:01 Pulse Rate 96 H 11/10/17 21:01 Respiratory Rate 16 11/10/17 21:01 Blood Pressure 151/68 11/10/17 21:01 O2 Sat by Pulse Oximetry 96 11/10/17 21:01 Pain Scale Pain Intensity 3 - Physical Exam General Appearance: no apparent distress Eyes, Ears, Nose, Throat Exam: normal ENT inspection Neck Exam: normal inspection, non-tender, supple Cardiovascular/Respiratory Exam: chest non-tender, normal breath sounds, regular rate/rhythm Gastrointestinal/Abdominal Exam: non-tender, soft Back Exam: normal inspection, No CVA tenderness Legs Exam: left leg: soft tissue tenderness (edema, violaceous erythema, and rash, small, superficial ulcer oozing clear fluid, no necrosis.), swelling Foot Exam: left foot: soft tissue tenderness, swelling Neuro/Tendon Exam: normal motor functions Mental Status Exam: alert, oriented x 3 Skin Exam: normal color, warm, dry, rash SpO2 Interpretation: normal SpO2: 96 Oxygen Delivery: Room Air - Radiology Ultrasound Exam Venous Lower Extremity Ultrasound: Other (negative for DVT) Ordered Tests: Active Orders 24 hr Category Date Time Status Up With Assistance ROUTINE Activity 11/10/17 23:04 Ordered Admission/Status Order ROUTINE Care 11/10/17 23:04 Ordered Code Status Order ROUTINE Care 11/10/17 23:04 Ordered IV Care Q6H Care 11/10/17 23:04 Ordered IV Insertion STAT Care 11/10/17 21:17 Active Vital Signs Q6H Care 11/10/17 23:04 Ordered Cardiac Diet Diet 11/10/17 Breakfast Ordered VENOUS UNILAT/LIMITED EXTREMIT [US] Stat Exams 11/10/17 22:33 Taken BLOOD CULTURE Stat Lab 11/10/17 22:22 Received CBC W DIFF AM.LAB Lab 11/11/17 04:00 Ordered CBC W DIFF Stat Lab 11/10/17 21:30 Completed CMP Stat Lab 11/10/17 21:30 Completed Lactic Acid Stat Lab 11/10/17 21:56 Completed Manual Differential NC Stat Lab 11/10/17 21:30 Completed PT INR [PROTIME WITH INR] Stat Lab 11/10/17 21:30 Completed Medication Summary Generic Name Dose Route Start Last Admin Trade Name Freq PRN Reason Stop Dose Admin Vancomycin HCl 1 gm in 250 mls @ 167 mls/hr 11/10/17 22:46 11/10/17 22:52 Vancomycin 1gm/ Ns 250ml IV 11/11/17 00:15 167 mls/hr STAT ONE Administration Discontinued Medications Generic Name Dose Route Start Last Admin Trade Name Meliza PRN Reason Stop Dose Admin Vancomycin HCl Confirm 11/10/17 22:49 Vancomycin 1gm/ Ns 250ml Administered 11/10/17 22:50 Dose 250 mls @ ud IV .STK-MED ONE Lab/Rad Data: Laboratory Result Diagrams 11/10/17 21:30 11/10/17 21:30 Laboratory Results 11/10/17 11/10/17 11/10/17 Range/Units 21:56 21:30 21:30 WBC (4.0-10.5) K/mm3 RBC (4.1-5.6) M/mm3 Hgb (12.5-18.0) gm/dl Hct (42-50) % MCV (78-100) fl MCH (26-32) pg MCHC (32-36) g/dl RDW (11.5-14.0) % Plt Count (150-450) K/mm3 MPV (6-9.5) fl Segmented Neutrophils (36.-66.) % Band Neutrophils (0.0-2.0) % Lymphocytes (Manual) (24-44) % Monocytes (Manual) (0.0-12.0) % Eosinophils (Manual) (0.00-3.0) % Differential Comment Atypical Lymphocytes % Platelet Estimate (NORMAL) INR 3.80 H (0.8-3.0) Sodium 135 L (136-145) mEq/L Potassium 4.4 (3.5-5.1) mEq/L Chloride 97 L (98-107) mEq/L Carbon Dioxide 31.5 (21-32) mEq/L Anion Gap 10.6 (5-15) MEQ/L BUN 28 H (9-20) mg/dL Creatinine 1.41 H (0.55-1.30) mg/dl Estimated GFR 51 ML/MIN Glucose 133 H (70-110) MG/DL Lactic Acid 1.7 (0.4-2.0) Calcium 8.7 (8.5-10.1) mg/dL Total Bilirubin 0.60 (0.2-1.0) mg/dL AST 20 (15-37) U/L ALT 23 (12-78) U/L Alkaline Phosphatase 105 (46-116) U/L Serum Total Protein 6.9 (6.4-8.2) gm/dL Albumin 3.2 L (3.4-5.0) g/dL 11/10/17 Range/Units 21:30 WBC 14.2 H (4.0-10.5) K/mm3 RBC 4.59 (4.1-5.6) M/mm3 Hgb 13.8 (12.5-18.0) gm/dl Hct 43.5 (42-50) % MCV 94.8 (78-100) fl MCH 30.1 (26-32) pg MCHC 31.7 L (32-36) g/dl RDW 14.3 H (11.5-14.0) % Plt Count 297 (150-450) K/mm3 MPV 10.9 H (6-9.5) fl Segmented Neutrophils 83 H (36.-66.) % Band Neutrophils 4 H (0.0-2.0) % Lymphocytes (Manual) 5 L (24-44) % Monocytes (Manual) 5 (0.0-12.0) % Eosinophils (Manual) 1 (0.00-3.0) % Differential Comment NORMAL Atypical Lymphocytes 2 % Platelet Estimate NORMAL (NORMAL) INR (0.8-3.0) Sodium (136-145) mEq/L Potassium (3.5-5.1) mEq/L Chloride (98-107) mEq/L Carbon Dioxide (21-32) mEq/L Anion Gap (5-15) MEQ/L BUN (9-20) mg/dL Creatinine (0.55-1.30) mg/dl Estimated GFR ML/MIN Glucose (70-110) MG/DL Lactic Acid (0.4-2.0) Calcium (8.5-10.1) mg/dL Total Bilirubin (0.2-1.0) mg/dL AST (15-37) U/L ALT (12-78) U/L Alkaline Phosphatase (46-116) U/L Serum Total Protein (6.4-8.2) gm/dL Albumin (3.4-5.0) g/dL - Progress Progress: unchanged Progress Note: 11/10/17 23:07 Venous doppler negative for DVT, I informed patient and his family about our results, I called Dr Garcia, discussed labs and doppler result, and patient's current condition, he agreed to admit him for iv Vancomycin. Pt and his family was informed, they agreed. - Departure Time of Disposition: 23:09 Departure Disposition: In-patient Admission Clinical Impression: Cellulitis of leg Qualifiers: Laterality: left Qualified Code(s): L03.116 - Cellulitis of left lower limb Condition: Stable Critical Care Time: No Referrals: VISHNU GARCIA MD [Primary Care Provider] -
[2017-11-10 21:44] LABS: Granulocyte Absolute (ANC) 11.34 (1.4-6.9); Hematocrit 43.5 % (42-50); Hemoglobin 13.8 gm/dl (12.5-18.0); Mean Cell Volume 94.8 fl (78-100); Mean Corpuscular Hemoglobin 30.1 pg (26-32); Mean Corpuscular Hgb Concent. 31.7 g/dl (32-36); Mean Platelet Volume 10.9 fl (6-9.5); Platelet Count 297 K/mm3 (150-450); Red Blood Count 4.59 M/mm3 (4.1-5.6); Red Cell Distribution Width 14.3 % (11.5-14.0); White Blood Count 14.2 K/mm3 (4.0-10.5)
[2017-11-10 21:52] LABS: INR 3.8 (0.8-3.0)
[2017-11-10 22:00] LABS: ALBUMIN 3.2 g/dL (3.4-5.0); ANION GAP 10.6 MEQ/L (5-15); BILIRUBIN,TOTAL 0.6 mg/dL (0.2-1.0); Calcium 8.7 mg/dL (8.5-10.1); Carbon Dioxide 31.5 mEq/L (21-32); Creatinine 1 1.41 mg/dl (0.55-1.30); Potassium 4.4 mEq/L (3.5-5.1); Total Protein 6.9 gm/dL (6.4-8.2)
[2017-11-10 22:30] LABS: ATYPICAL LYMPHS 2 %; BAND 4 % (0.0-2.0); Eosinophil 1 % (0.00-3.0); Lymphocytes 5 % (24-44); Monocyte 5 % (0.0-12.0); Neutrophils 83 % (36.-66.); Total Cells Counted 100
[2017-11-10 22:31] LABS: Platelet Estimate NORMAL (NORMAL)
[2017-11-10] MEDS ORDERED: Vancomycin 1GM/ Ns 250ML*** 1 GM/250 ML IVPB IV ONE (22:46)
[2017-11-10] MEDS ORDERED: Vancomycin 1GM/ Ns 250ML*** 250 ML IV ONE (22:49)
[2017-11-10] MEDS ORDERED: DUONEB 0.5-3 MG/3 ml Neb IH PRN (23:04)
[2017-11-11] MEDS ORDERED: xanAX 0.25 MG PO SCH (01:45)
[2017-11-11] MEDS ORDERED: Coumadin 2 MG PO SCH (01:45)
[2017-11-11] MEDS: Klor Con 10 MEQ PO SCH ×3 (01:54→22:01)
[2017-11-11] MEDS: Lanoxin 0.125MG TABLET PO SCH ×2 (01:54→22:02)
[2017-11-11] MEDS: Toprol-Xl 25MG Tablets PO SCH ×3 (01:55→22:01)
[2017-11-11] MEDS: TYLENOL 325 MG PO PRN ×3 (01:56→20:13)
[2017-11-11 06:14] LABS: Granulocyte Absolute (ANC) 13.88 (1.4-6.9); Hematocrit 40.9 % (42-50); Hemoglobin 13.1 gm/dl (12.5-18.0); Mean Corpuscular Hemoglobin 30.1 pg (26-32); Mean Platelet Volume 11.3 fl (6-9.5); Platelet Count 288 K/mm3 (150-450); Red Blood Count 4.35 M/mm3 (4.1-5.6); Red Cell Distribution Width 14.5 % (11.5-14.0); White Blood Count 17.4 K/mm3 (4.0-10.5)
[2017-11-11 06:47] LABS: INR 3.32 (0.8-3.0)
[2017-11-11] MEDS: Advair Hfa 230/21 Mcg COMMON CANISTER IH SCH ×2 (07:02→19:55)
[2017-11-11] MEDS ORDERED: NON-FORMULARY ITEM (Fluticasone Propionate [Flonase Allergy Relief] 1 SPRAY) IH PRN (07:08)
[2017-11-11] MEDS ORDERED: Flonase NASAL NS PRN (07:12)
[2017-11-11 07:14] LABS: Slide Review 1 YES
--- NOTE | 2017-11-11 08:46 | XRAY ---
Indication: Left leg swelling. Two-dimensional sonogram and color Doppler imaging of the major venous vessels of the left leg was performed. Comparison: June 04, 2014. Again no thrombus seen in the examined deep venous vessels of the left leg including greater saphenous vein. Veins demonstrate normal compressibility. Venous waveforms are normal with and without augmentation. Impression: Left leg again negative for DVT. Comment: Preliminary report was given.
[2017-11-11] MEDS: CLARITIN 10 MG PO SCH (09:23)
[2017-11-11] MEDS: MAG-OX 400 PO SCH (09:25)
[2017-11-11] MEDS: BUMEX 1 MG PO SCH ×2 (09:25→22:01)
[2017-11-11] MEDS: SYNTHROID 25 MCG PO SCH (09:25)
[2017-11-11] MEDS: ARTHROTEC PO SCH ×2 (09:26→22:07)
[2017-11-11] MEDS ORDERED: PHARMACY DOSING REQUIRED: VANCOMYCIN IV ONE (09:56)
[2017-11-11] MEDS ORDERED: ARTHROTEC PO SCH (10:00)
[2017-11-11] MEDS ORDERED: NON-FORMULARY ITEM (Fexofenadine Hcl [Allegra Allergy] 180 MG) PO SCH (10:00)
[2017-11-11] MEDS: VANCOCIN 1 GM VIAL*** 1.5 GM in Dextrose 5%-1/4NS IV Soln. 500 ML 500 ML IV SCH (10:34)
--- NOTE | 2017-11-11 13:55 | PCM.HP ---
History of Present Illness - Chief Complaint Chief Complaint: cellulitusof lt lower limb History of Present Illness: is a 82 year old male.Pt developed swelling, redness, violaceous rash on his left lower leg and foot since this morning. He denies fever, chills , nausea, chest pain or shortness of breath, he denies taking antibiotics currently, he took something few weeks ago for cold, does not recall the name. Method of Injury: other (denies) Occurred: this morning Quality: constant Severity of Pain-Max: mild Severity of Pain-Current: mild Modifying Factors: Improves With: nothing - Review of Systems Constitutional: No Fever, No Chills Eyes: No Symptoms Ears, Nose, & Throat: No Symptoms Respiratory: No Cough, No Short Of Breath Cardiac: No Chest Pain, No Edema, No Syncope Abdominal/Gastrointestinal: No Abdominal Pain, No Nausea, No Vomiting, No Diarrhea Genitourinary Symptoms: No Dysuria Musculoskeletal: No Back Pain, No Neck Pain Skin: No Rash Neurological: No Dizziness, No Focal Weakness, No Sensory Changes Psychological: No Symptoms Endocrine: No Symptoms Hematologic/Lymphatic: No Symptoms Immunological/Allergic: No Symptoms Medications & Allergies Home Medications: Home Medication List Alprazolam 0.25 mg [xanAX 0.25 MG] 0.25 mg PO TIDPRN PRN 06/04/14 [ History Confirmed 11/11/17] Bumetanide 1 mg [Bumex 1 mg] 1.5 mg PO BID 06/04/14 [History Confirmed ] Diclofenac Sodium/Misoprostol [Diclofenac-Misoprost 50-200 Tb] 50,200 mg PO BID 06/04/14 [History Confirmed 11/11/17] Digoxin 0.125 mg Tablet [Lanoxin 0.125MG TABLET] 125 mcg PO HS 06/04/14 [ History Confirmed 11/11/17] Metoprolol Succinate 50 mg [Toprol Xl 50 MG] 25 mg PO BID 06/04/14 [ History Confirmed 11/11/17] Potassium Chloride [Klor-Con 10] 20 meq PO BID 06/04/14 [History Confirmed 11/11] Fexofenadine HCl [Liyah Allergy] 180 mg PO DAILY 08/29/15 [History Confirmed 11/11/17] Acetaminophen 325 mg [Tylenol 325 mg] 650 mg PO Q4H PRN PRN 07/15/17 [ History Confirmed 11/11/17] Albuterol Sulfate [Proair Hfa] 2 puffs PO QID 07/15/17 [History Confirmed ] Budesonide/Formoterol Fumarate [Symbicort 80-4.5 Mcg Inhaler] 2 puffs PO BID [History Confirmed 11/11/17] Fluticasone Propionate [Flonase Allergy Relief] 1 spray IH DAILY PRN PRN [History Confirmed 11/11/17] Magnesium Oxide 400 mg [Mag-Ox 400] 400 mg PO DAILY #30 tablet 07/18/17 [ Rx Confirmed 11/11/17] Levothyroxine Sodium 25 Mcg [Synthroid 25 Mcg] 25 mcg PO DAILY 11/11/17 [ History Confirmed 11/11/17] Warfarin Sodium 2 mg [Coumadin 2 MG] 6 mg PO EVENING MEAL 11/11/17 [ History Confirmed 11/11/17] Allergies/Adverse Reactions: Allergies Allergy/AdvReac Type Severity Reaction Status Date / Time iodine Allergy Severe Difficulty Verified 06/01/17 00:22 Breathing shellfish derived Allergy Severe Difficulty Verified 06/01/17 00:22 Breathing - Past Medical History Past Medical History: Yes Neurological History: Peripheral Neuropathy ENT History: No Pertinent History Cardiac History: Arrhythmia, Congestive Heart Failure Respiratory History: Asthma, CHF, COPD Endocrine Medical History: No Pertinent History Musculoskelatal History: Arthritis GI Medical History: No Pertinent History History: Other Pyscho-Social History: No Pertinent History Male Reproductive Disorders: No Pertinent History Comment: AT [facility] ON CPAP WITH 2 LITERS OXYGEN; - Past Surgical History Past Surgical History: Yes Neuro Surgical History: No Pertinent History Cardiac History: No Pertinent History Respiratory Surgery: No Pertinent History GI Surgical History: No Pertinent History Genitourinary Surgical Hx: No Pertinent History Musculskeletal Surgical Hx: Joint Replacement Male Surgical History: Prostate Surgery Other Surgical History: HIP 2009. TURP 1999. - Social History Smoking Status: Former smoker Exposure to second hand smoke: No Alcohol: None Drug Use: none - Physical Exam Vital Signs: Vital Signs - 24 hr Temp Pulse Resp BP BP Pulse Ox 11/11/17 11:03 97.8 F 114 H 20 116/80 95 11/11/17 07:20 97.7 F 118 H 20 118/78 98 11/11/17 07:08 108 H 18 94 L 11/11/17 04:25 114 H 20 94 L 11/11/17 04:00 98.0 F 117 H 16 110/80 93 L 11/11/17 01:54 107 H 155/74 11/11/17 00:22 98.6 F 107 H 19 155/74 92 L 11/10/17 23:09 96 11/10/17 21:01 97.4 F 96 H 16 151/68 96 Oxygen-Last 24 hours O2 Percentage 3 Liters = 32% General Appearance: no apparent distress, alert Neurologic Exam: alert, oriented x 3, cooperative, normal mood/affect, nml cerebellar function, nml station & gait, sensation nml, No motor deficits Eye Exam: PERRL/EOMI, eyes nml inspection Ears, Nose, Throat Exam: normal ENT inspection, TMs normal, pharynx normal, moist mucous membranes Neck Exam: normal inspection, non-tender, supple, full range of motion Respiratory Exam: normal breath sounds, lungs clear, No respiratory distress Cardiovascular Exam: regular rate/rhythm, normal heart sounds, normal peripheral pulses Gastrointestinal/Abdomen Exam: soft, normal bowel sounds, No tenderness, No mass Back Exam: normal inspection, normal range of motion, No CVA tenderness, No vertebral tenderness Extremity Exam: normal inspection, normal range of motion, pelvis stable Skin Exam: normal color, warm, dry, No rash Lymphatic Exam: No adenopathy Results - Labs Lab/Micro Results: Lab Results-Last 24 Hours 11/11/17 11/11/17 11/11/17 Range/Units 05:00 05:00 05:15 WBC 17.4 H (4.0-10.5) K/mm3 RBC 4.35 (4.1-5.6) M/mm3 Hgb 13.1 (12.5-18.0) gm/dl Hct 40.9 L (42-50) % MCV 94.0 (78-100) fl MCH 30.1 (26-32) pg MCHC 32.0 (32-36) g/dl RDW 14.5 H (11.5-14.0) % Plt Count 288 (150-450) K/mm3 MPV 11.3 H (6-9.5) fl INR 3.32 H (0.8-3.0) Digoxin 1.16 (0.5-1.5) ng/ml Slides for Path Review YES - Other Procedures and Tests Respiratory Therapy 11/11/17 04:25 Oxygen NASAL CANNULA 2 lpm 11/11/17 07:00 Respiratory MDI BID Assessment/Plan (1) Cellulitis of leg Current Visit: Yes Status: Acute Qualifiers: Laterality: left Qualified Code(s): L03.116 - Cellulitis of left lower limb Assessment & Plan: Chief Complaint Diagnosis cellulitusof lt lower limb Allergies Allergy/AdvReac Type Severity Reaction Status Date / Time iodine Allergy Severe Difficulty Verified 06/01/17 00:22 Breathing shellfish derived Allergy Severe Difficulty Verified 06/01/17 00:22 Breathing Vital Signs (Last 24 hours) Temp Pulse Resp BP BP Pulse Ox 11/11/17 11:03 97.8 F 114 H 20 116/80 95 11/11/17 07:20 97.7 F 118 H 20 118/78 98 11/11/17 07:08 108 H 18 94 L 11/11/17 04:25 114 H 20 94 L 11/11/17 04:00 98.0 F 117 H 16 110/80 93 L 11/11/17 01:54 107 H 155/74 11/11/17 00:22 98.6 F 107 H 19 155/74 92 L 11/10/17 23:09 96 11/10/17 21:01 97.4 F 96 H 16 151/68 96 Home Medications Medication Instructions Recorded Confirmed Last Taken Type Levothyroxine Sodium 25 Mcg 25 mcg PO DAILY 11/11/17 11/11/17 11/09/17 20:00 History [Synthroid 25 Mcg] Warfarin Sodium 2 mg [Coumadin 6 mg PO EVENING MEAL 11/11/17 11/11/17 05:00 History 2 MG] Current Medications Generic Name Dose Route Start Last Admin Trade Name Freq PRN Reason Stop Dose Admin Acetaminophen 650 mg 11/10/17 23:04 11/11/17 09:27 Tylenol 325 Mg PO 12/10/17 23:03 650 mg Q4H PRN PRN Administration PAIN AND/OR FEVER Albuterol/Ipratropium 3 ml 11/10/17 23:04 Duoneb 0.5-3 Mg/3 Ml Neb IH 12/10/17 23:03 Q4HPRN PRN SHORTNESS OF BREATH/WHEEZING Alprazolam 0.25 mg 11/11/17 06:37 Xanax 0.25 Mg PO 12/11/17 06:36 TIDPRN PRN Bumetanide 1.5 mg 11/11/17 10:00 11/11/17 09:25 Bumex 1 Mg PO 12/11/17 09:59 1.5 mg BID JONY Administration Diclofenac/Misoprostol 1 tablet 11/11/17 10:00 11/11/17 09:26 Arthrotec 50mg/200 Mg Tablet Ec PO 12/11/17 09:59 1 tablet BID JONY Administration Digoxin 0.125 mg 11/11/17 01:45 11/11/17 01:54 Lanoxin 0.125mg Tablet PO 12/11/17 01:44 0.125 mg HS JONY Administration Fluticasone Propionate 0 gm 11/11/17 07:12 Flonase Nasal NS 12/11/17 07:11 DAILY PRN PRN ALLERGIES Vancomycin HCl 1.5 gm/ 500 mls @ 250 mls/hr 11/11/17 10:00 11/11/17 10:34 Dextrose/Sodium Chloride IV 12/11/17 09:59 250 mls/hr Q18H JONY Administration Levothyroxine Sodium 25 mcg 11/11/17 10:00 11/11/17 09:25 Synthroid 25 Mcg PO 12/11/17 09:59 25 mcg DAILY JONY Administration Loratadine 10 mg 11/11/17 10:00 11/11/17 09:23 Claritin 10 Mg PO 12/11/17 09:59 10 mg DAILY JONY Administration Magnesium Oxide 400 mg 11/11/17 10:00 11/11/17 09:25 Mag-Ox 400 PO 12/11/17 09:59 400 mg DAILY JONY Administration Metoprolol Succinate 25 mg 11/11/17 01:45 11/11/17 09:25 Toprol-Xl 25mg Tablets PO 12/11/17 01:44 25 mg BID JONY Administration Potassium Chloride 20 meq 11/11/17 01:45 11/11/17 09:26 Klor Con 10 Meq PO 12/11/17 01:44 20 meq BID JONY Administration Fluticasone/Salmeterol 2 puff 11/11/17 07:00 11/11/17 07:02 Advair Hfa 230/21 Mcg Common Canister* IH 12/11/17 06:59 2 puff BIDRT JONY Administration Discontinued Medications Generic Name Dose Route Start Last Admin Trade Name Freq PRN Reason Stop Dose Admin Alprazolam 0.25 mg 11/11/17 01:45 11/11/17 01:56 Xanax 0.25 Mg PO 12/11/17 01:44 0.25 mg TIDPRN JONY Administration Vancomycin HCl 1 gm in 250 mls @ 167 mls/hr 11/10/17 22:46 11/10/17 22:52 Vancomycin 1gm/ Ns 250ml IV 11/11/17 00:15 167 mls/hr STAT ONE Administration Vancomycin HCl Confirm 11/10/17 22:49 Vancomycin 1gm/ Ns 250ml Administered 11/10/17 22:50 Dose 250 mls @ ud IV .STK-MED ONE Non-Formulary Medication 1 each 11/11/17 09:56 Pharmacy Dosing Required: Vancomycin IV 11/11/17 09:57 STAT ONE Warfarin Sodium 6 mg 11/11/17 01:45 11/11/17 01:55 Coumadin 2 Mg PO 12/11/17 01:44 6 mg DAILY@1800 JONY Administration Intake & Output (Last 24 hours) 11/09/17 11/10/17 11/11/17 11/12/17 11:59 11:59 11:59 11:59 Intake Total 1340 940 Output Total 600 1000 Balance 740 -60 Weight 122.2 kg 122.2 kg Microbiology Results (Last 24 hours) 11/10/17 22:22 Blood - Pending 11/10/17 22:22 Blood Blood Culture - Pending 11/10/17 21:30 Blood - Pending 11/10/17 21:30 Blood Blood Culture - Pending Laboratory Results (Last 24 hours) 11/11/17 11/11/17 11/11/17 05:15 05:00 05:00 WBC 17.4 H RBC 4.35 Hgb 13.1 Hct 40.9 L MCV 94.0 MCH 30.1 MCHC 32.0 RDW 14.5 H Plt Count 288 MPV 11.3 H Segmented Neutrophils Band Neutrophils Lymphocytes (Manual) Monocytes (Manual) Eosinophils (Manual) Differential Comment Atypical Lymphocytes Platelet Estimate INR 3.32 H Sodium Potassium Chloride Carbon Dioxide Anion Gap BUN Creatinine Estimated GFR Glucose Lactic Acid Calcium Total Bilirubin AST ALT Alkaline Phosphatase Serum Total Protein Albumin Digoxin 1.16 Slides for Path Review YES 11/10/17 11/10/17 11/10/17 21:56 21:30 21:30 WBC RBC Hgb Hct MCV MCH MCHC RDW Plt Count MPV Segmented Neutrophils Band Neutrophils Lymphocytes (Manual) Monocytes (Manual) Eosinophils (Manual) Differential Comment Atypical Lymphocytes Platelet Estimate INR 3.80 H Sodium 135 L Potassium 4.4 Chloride 97 L Carbon Dioxide 31.5 Anion Gap 10.6 BUN 28 H Creatinine 1.41 H Estimated GFR 51 Glucose 133 H Lactic Acid 1.7 Calcium 8.7 Total Bilirubin 0.60 AST 20 ALT 23 Alkaline Phosphatase 105 Serum Total Protein 6.9 Albumin 3.2 L Digoxin Slides for Path Review 11/10/17 21:30 WBC 14.2 H RBC 4.59 Hgb 13.8 Hct 43.5 MCV 94.8 MCH 30.1 MCHC 31.7 L RDW 14.3 H Plt Count 297 MPV 10.9 H Segmented Neutrophils 83 H Band Neutrophils 4 H Lymphocytes (Manual) 5 L Monocytes (Manual) 5 Eosinophils (Manual) 1 Differential Comment NORMAL Atypical Lymphocytes 2 Platelet Estimate NORMAL INR Sodium Potassium Chloride Carbon Dioxide Anion Gap BUN Creatinine Estimated GFR Glucose Lactic Acid Calcium Total Bilirubin AST ALT Alkaline Phosphatase Serum Total Protein Albumin Digoxin Slides for Path Review Orders (Last 24 hours) Category Date Time Status Up With Assistance ROUTINE Activity 11/10/17 23:04 Active Admission/Status Order ROUTINE Care 11/10/17 23:04 Active Ambulate Patient ROUTINE Care 11/11/17 11:34 Active Code Status Order ROUTINE Care 11/10/17 23:04 Active IV Insertion STAT Care 11/10/17 21:17 Completed Vital Signs Q4H Care 11/10/17 23:04 Active Cardio-Pulmonary Rehab .as ordered Cons 11/11/17 00:22 Active VENOUS UNILAT/LIMITED EXTREMIT [US] Stat Exams 11/10/17 22:33 Completed BLOOD CULTURE Stat Lab 11/10/17 22:22 Received CBC W DIFF AM.LAB Lab 11/11/17 05:15 Completed CBC W DIFF Stat Lab 11/10/17 21:30 Completed CMP Stat Lab 11/10/17 21:30 Completed DIGOXIN Urgent Lab 11/11/17 05:00 Completed Lactic Acid Stat Lab 11/10/17 21:56 Completed Manual Differential NC Stat Lab 11/10/17 21:30 Completed PT INR [PROTIME WITH INR] Stat Lab 11/10/17 21:30 Completed PT INR [PROTIME WITH INR] Urgent Lab 11/11/17 05:00 Completed Vancomycin,Trough Urgent Lab 11/13/17 21:30 Ordered Acetaminophen 325 mg [Tylenol 325 mg] Med 11/10/17 23:04 Active 650 mg PO Q4H PRN PRN Albuterol/Ipratropium 3ml Neb* [DUONEB 0.5-3 MG/3 ml Med 11/10/17 23:04 Active Neb] 3 ml IH Q4HPRN PRN Alprazolam 0.25 mg [xanAX 0.25 MG] Med 11/11/17 01:45 Discontinued 0.25 mg PO TIDPRN Alprazolam 0.25 mg [xanAX 0.25 MG] Med 11/11/17 06:37 Active 0.25 mg PO TIDPRN PRN Bumetanide 1 mg [Bumex 1 mg] Med 11/11/17 10:00 Active 1.5 mg PO BID Diclofenac Sodium/Misoprostol* [Arthrotec 50MG/200 MG Med 11/11/17 10:00 Active Tablet EC] 1 tablet PO BID Digoxin 0.125 mg Tablet [Lanoxin 0.125MG TABLET] Med 11/11/17 01:45 Active 0.125 mg PO HS Fluticasone Propionate [Flonase NASAL] Med 11/11/17 07:12 Active 0 gm NS DAILY PRN PRN Fluticasone/Salmeterol 230/21 [Advair Hfa 230/21 Mcg Med 11/11/17 07:00 Active COMMON CANISTER*] 2 puff IH BIDRT Levothyroxine Sodium 25 Mcg [Synthroid 25 Mcg] Med 11/11/17 10:00 Active 25 mcg PO DAILY Loratadine 10 mg [Claritin 10 mg] Med 11/11/17 10:00 Active 10 mg PO DAILY Magnesium Oxide 400 mg [Mag-Ox 400] Med 11/11/17 10:00 Active 400 mg PO DAILY Metoprolol Succinate 25 mg Xl* [Toprol-Xl 25MG Tablets* Med 11/11/17 01:45 Active ] 25 mg PO BID Pharmacy Dose Request: Vancomy [Pharmacy Dosing Med 11/11/17 09:56 Discontinued Required: Vancomycin] 1 each IV STAT ONE Potassium Chloride 10 Meq Tab* [Klor Con 10 MEQ] Med 11/11/17 01:45 Active 20 meq PO BID Therapuetic Drug Level Monitor [Trough Drug Levels] Med 11/14/17 21:30 Once 1 IJ 1XONLY ONE Vancomycin HCl 1 gm Inj [Vancocin 1 gm Vial] 1.5 Med 11/11/17 10:00 Active gm D5%-0.25% NaCl 500 ml [Dextrose 5%-1/4NS IV Soln. 500 ML] 500 ml IV Q18H Vancomycin HCl 1 gm Premix [Vancomycin 1GM/ Ns 250ML Med 11/10/17 22:46 Discontinued ] 1 gm in 250 ml IV STAT Vancomycin HCl 1 gm Premix [Vancomycin 1GM/ Ns 250ML Med 11/10/17 22:49 Discontinued ] 250 ml IV UD Warfarin Sodium 2 mg [Coumadin 2 MG] Med 11/11/17 01:45 Discontinued 6 mg PO DAILY@1800 OT Screen per Nursing Assess ONCE OT 11/11/17 01:14 Active PT Screen per Nursing Assess ONCE PT 11/11/17 01:14 Completed Oxygen NASAL CANNULA 2 lpm RT 11/11/17 04:25 Active RT Screen per Nursing Assess ONCE RT 11/11/17 01:14 Completed Respiratory MDI BID RT 11/11/17 07:00 Active (2) Abscess or cellulitis of leg Current Visit: No Status: Acute Code(s): L02.419 - CUTANEOUS ABSCESS OF LIMB , UNSPECIFIED; L03.119 - CELLULITIS OF UNSPECIFIED PART OF LIMB (3) Atrial fibrillation Current Visit: No Status: Chronic Code(s): I48.91 - UNSPECIFIED ATRIAL FIBRILLATION (4) Hypertensive heart disease with congestive heart failure Current Visit: No Status: Chronic Code(s): I11.0 - HYPERTENSIVE HEART DISEASE WITH HEART FAILURE (5) Sleep apnea in adult Current Visit: No Status: Chronic Code(s): G47.33 - OBSTRUCTIVE SLEEP APNEA (ADULT) (PEDIATRIC)
[2017-11-11] MEDS: xanAX 0.25 MG PO PRN ×2 (14:00→22:01)
[2017-11-11] MEDS ORDERED: ZOFRAN ODT 4 MG PO PRN (20:07)
[2017-11-12] MEDS: VANCOCIN 1 GM VIAL*** 1.5 GM in Dextrose 5%-1/4NS IV Soln. 500 ML 500 ML IV SCH ×2 (03:07→22:34)
[2017-11-12 06:14] LABS: Hematocrit 38.8 % (42-50); Hemoglobin 12.4 gm/dl (12.5-18.0); Mean Cell Volume 93.9 fl (78-100); Platelet Count 252 K/mm3 (150-450); Red Blood Count 4.13 M/mm3 (4.1-5.6); Red Cell Distribution Width 14.4 % (11.5-14.0); White Blood Count 10.6 K/mm3 (4.0-10.5)
[2017-11-12 06:57] LABS: ALBUMIN 2.7 g/dL (3.4-5.0); ANION GAP 9.8 MEQ/L (5-15); BILIRUBIN,TOTAL 0.5 mg/dL (0.2-1.0); Calcium 8.8 mg/dL (8.5-10.1); Carbon Dioxide 29.2 mEq/L (21-32); Creatinine 1 1.3 mg/dl (0.55-1.30); Potassium 4.4 mEq/L (3.5-5.1); Total Protein 6.3 gm/dL (6.4-8.2)
[2017-11-12 07:10] LABS: INR 2.79 (0.8-3.0)
[2017-11-12] MEDS: Advair Hfa 230/21 Mcg COMMON CANISTER IH SCH ×2 (07:40→19:53)
[2017-11-12] MEDS: ARTHROTEC PO SCH ×2 (10:33→22:27)
[2017-11-12] MEDS: BUMEX 1 MG PO SCH ×2 (10:34→22:25)
[2017-11-12] MEDS: CLARITIN 10 MG PO SCH (10:35)
[2017-11-12] MEDS: MAG-OX 400 PO SCH (10:35)
[2017-11-12] MEDS: Klor Con 10 MEQ PO SCH ×2 (10:35→22:27)
[2017-11-12] MEDS: Toprol-Xl 25MG Tablets PO SCH ×2 (10:36→22:26)
[2017-11-12] MEDS: SYNTHROID 25 MCG PO SCH (10:36)
--- NOTE | 2017-11-12 10:59 | PCM.NOTE ---
Date and Time: 11/12/17 1054 Subjective Assessment: patient is doing better today. His swelling on the feet is down - Review of Systems Constitutional: No Fever, No Chills Eyes: No Symptoms Ears, Nose, & Throat: No Symptoms Respiratory: No Cough, No Short Of Breath Cardiac: No Chest Pain, No Edema, No Syncope Abdominal/Gastrointestinal: No Abdominal Pain, No Nausea, No Vomiting, No Diarrhea Genitourinary Symptoms: No Dysuria Musculoskeletal: No Back Pain, No Neck Pain Skin: Cellulitis, No Rash Neurological: No Dizziness, No Focal Weakness, No Sensory Changes Psychological: No Symptoms Endocrine: No Symptoms Hematologic/Lymphatic: No Symptoms Immunological/Allergic: No Symptoms Objective Exam General Appearance: no apparent distress, alert Neurologic Exam: alert, oriented x 3, cooperative, normal mood/affect, nml cerebellar function, sensation nml, No motor deficits Skin Exam: normal color, warm, dry Eye Exam: PERRL, EOMI, eyes nml inspection Ears, Nose, Throat Exam: normal ENT inspection, pharynx normal, moist mucous membranes Neck Exam: normal inspection, non-tender, supple, full range of motion Respiratory Exam: normal breath sounds, lungs clear, No respiratory distress Cardiovascular Exam: irregular, capillary refill >3 sec Gastrointestinal/Abdomen Exam: soft, No tenderness, No mass Extremity Exam: normal inspection, normal range of motion Back Exam: normal inspection, normal range of motion, No CVA tenderness, No vertebral tenderness Male Genitalia Exam: deferred Rectal Exam: deferred OBJECTIVE DATA Vital Signs: Vital Signs - 24 hr Temp Pulse Resp BP BP Pulse Ox 11/12/17 08:22 90 18 97 11/12/17 07:16 97.8 F 95 H 20 118/76 96 11/12/17 04:00 97.7 F 96 H 18 121/67 94 L 11/12/17 00:00 97.9 F 90 18 145/60 95 11/11/17 22:02 90 145/60 11/11/17 20:03 93 H 14 97 11/11/17 20:00 97.8 F 68 20 143/68 95 11/11/17 16:26 97.8 F 70 20 119/68 97 11/11/17 11:03 97.8 F 114 H 20 116/80 95 Oxygen-Last 24 hours O2 Percentage 2 Liters = 28% Pain Assessment - Last Documented Pain Intensity 2 Pain Scale Used 0-10 Pain Scale Intake and Output: Intake & Output 11/09/17 11/10/17 11/11/17 11/12/17 11:59 11:59 11:59 11:59 Intake Total 1340 3920 Output Total 600 4550 Balance 740 -630 Weight 122.2 kg 122.2 kg Lab Results: Lab Results-Last 24 Hours 11/12/17 11/12/17 11/12/17 Range/Units 06:00 06:00 06:00 WBC 10.6 H (4.0-10.5) K/mm3 RBC 4.13 (4.1-5.6) M/mm3 Hgb 12.4 L (12.5-18.0) gm/dl Hct 38.8 L (42-50) % MCV 93.9 (78-100) fl MCH 30.0 (26-32) pg MCHC 32.0 (32-36) g/dl RDW 14.4 H (11.5-14.0) % Plt Count 252 (150-450) K/mm3 MPV 11.0 H (6-9.5) fl INR 2.79 (0.8-3.0) Sodium 133 L (136-145) mEq/L Potassium 4.4 (3.5-5.1) mEq/L Chloride 98 (98-107) mEq/L Carbon Dioxide 29.2 (21-32) mEq/L Anion Gap 9.8 (5-15) MEQ/L BUN 25 H (9-20) mg/dL Creatinine 1.30 (0.55-1.30) mg/dl Estimated GFR 56 ML/MIN Glucose 189 H (70-110) MG/DL Calcium 8.8 (8.5-10.1) mg/dL Total Bilirubin 0.50 (0.2-1.0) mg/dL AST 18 (15-37) U/L ALT 17 (12-78) U/L Alkaline Phosphatase 85 (46-116) U/L Serum Total Protein 6.3 L (6.4-8.2) gm/dL Albumin 2.7 L (3.4-5.0) g/dL Assessment/Plan (1) Cellulitis of leg Current Visit: Yes Status: Acute Qualifiers: Laterality: left Qualified Code(s): L03.116 - Cellulitis of left lower limb Assessment & Plan: continue IV antibiotics. awaiting surgery consult (2) Abscess or cellulitis of leg Current Visit: Yes Status: Acute Code(s): L02.419 - CUTANEOUS ABSCESS OF LIMB, UNSPECIFIED; L03.119 - CELLULITIS OF UNSPECIFIED PART OF LIMB (3) Atrial fibrillation Current Visit: Yes Status: Chronic Code(s): I48.91 - UNSPECIFIED ATRIAL FIBRILLATION (4) Hypertensive heart disease with congestive heart failure Current Visit: No Status: Chronic Code(s): I11.0 - HYPERTENSIVE HEART DISEASE WITH HEART FAILURE (5) Sleep apnea in adult Current Visit: No Status: Chronic Code(s): G47.33 - OBSTRUCTIVE SLEEP APNEA (ADULT) (PEDIATRIC)
[2017-11-12] MEDS: xanAX 0.25 MG PO PRN (22:27)
[2017-11-12] MEDS: Lanoxin 0.125MG TABLET PO SCH (22:27)
[2017-11-12] MEDS: TYLENOL 325 MG PO PRN (22:32)
[2017-11-13 05:57] LABS: INR 2.16 (0.8-3.0)
[2017-11-13] MEDS: Advair Hfa 230/21 Mcg COMMON CANISTER IH SCH ×2 (08:03→20:13)
[2017-11-13] MEDS: Toprol-Xl 25MG Tablets PO SCH ×2 (09:05→21:50)
[2017-11-13] MEDS: CLARITIN 10 MG PO SCH (09:05)
[2017-11-13] MEDS: Klor Con 10 MEQ PO SCH ×2 (09:05→21:49)
[2017-11-13] MEDS: MAG-OX 400 PO SCH (09:05)
[2017-11-13] MEDS: SYNTHROID 25 MCG PO SCH (09:05)
[2017-11-13] MEDS: BUMEX 1 MG PO SCH ×2 (09:05→21:51)
[2017-11-13] MEDS: ARTHROTEC PO SCH ×2 (09:05→21:50)
[2017-11-13] MEDS: TYLENOL 325 MG PO PRN ×2 (12:09→21:50)
--- NOTE | 2017-11-13 12:37 | PCM.NOTE ---
Date and Time: 11/13/17 1236 Subjective Assessment: doing ok - Review of Systems Constitutional: No Fever, No Chills Eyes: No Symptoms Ears, Nose, & Throat: No Symptoms Respiratory: No Cough, No Short Of Breath Cardiac: No Chest Pain, No Edema, No Syncope Abdominal/Gastrointestinal: No Abdominal Pain, No Nausea, No Vomiting, No Diarrhea Genitourinary Symptoms: No Dysuria Musculoskeletal: No Back Pain, No Neck Pain Skin: No Rash Neurological: No Dizziness, No Focal Weakness, No Sensory Changes Psychological: No Symptoms Endocrine: No Symptoms Hematologic/Lymphatic: No Symptoms Immunological/Allergic: No Symptoms Objective Exam General Appearance: no apparent distress, alert Neurologic Exam: alert, oriented x 3, cooperative, normal mood/affect, nml cerebellar function, sensation nml, No motor deficits Skin Exam: normal color, warm, dry Eye Exam: PERRL, EOMI, eyes nml inspection Ears, Nose, Throat Exam: normal ENT inspection, pharynx normal, moist mucous membranes Neck Exam: normal inspection, non-tender, supple, full range of motion Respiratory Exam: normal breath sounds, lungs clear, No respiratory distress Cardiovascular Exam: regular rate/rhythm, normal heart sounds Gastrointestinal/Abdomen Exam: soft, No tenderness, No mass Extremity Exam: normal inspection, normal range of motion Back Exam: normal inspection, normal range of motion, No CVA tenderness, No vertebral tenderness Male Genitalia Exam: deferred Rectal Exam: deferred OBJECTIVE DATA Vital Signs: Vital Signs - 24 hr Temp Pulse Resp BP BP Pulse Ox 11/13/17 08:03 108 H 20 95 11/13/17 08:00 97.9 F 93 H 20 152/75 100 11/13/17 04:00 98.2 F 112 H 20 115/77 96 11/13/17 00:00 98.6 F 89 18 133/64 92 L 11/12/17 22:27 80 133/64 11/12/17 20:00 97.9 F 92 H 20 128/52 96 11/12/17 19:54 91 H 20 97 11/12/17 16:08 98.2 F 90 20 122/66 96 Oxygen-Last 24 hours O2 Percentage 2 Liters = 28% Pain Assessment - Last Documented Pain Intensity 5 Pain Scale Used 0-10 Pain Scale Intake and Output: Intake & Output 11/11/17 11/12/17 11/13/17 11/14/17 11:59 11:59 11:59 11:59 Intake Total 1340 4560 2780 Output Total 791 1670 3000 Balance 740 630 -220 Weight 122.2 kg 122.2 kg Lab Results: Lab Results-Last 24 Hours 11/13/17 Range/Units 05:30 INR 2.16 (0.8-3.0) Assessment/Plan (1) Cellulitis of leg Current Visit: Yes Status: Acute Qualifiers: Laterality: left Qualified Code(s): L03.116 - Cellulitis of left lower limb (2) Abscess or cellulitis of leg Current Visit: Yes Status: Acute Code(s): L02.419 - CUTANEOUS ABSCESS OF LIMB, UNSPECIFIED; L03.119 - CELLULITIS OF UNSPECIFIED PART OF LIMB (3) Atrial fibrillation Current Visit: Yes Status: Chronic Code(s): I48.91 - UNSPECIFIED ATRIAL FIBRILLATION (4) Hypertensive heart disease with congestive heart failure Current Visit: No Status: Chronic Code(s): I11.0 - HYPERTENSIVE HEART DISEASE WITH HEART FAILURE (5) Sleep apnea in adult Current Visit: No Status: Chronic Code(s): G47.33 - OBSTRUCTIVE SLEEP APNEA (ADULT) (PEDIATRIC)
[2017-11-13] MEDS: VANCOCIN 1 GM VIAL*** 1.5 GM in Dextrose 5%-1/4NS IV Soln. 500 ML 500 ML IV SCH (15:54)
[2017-11-13] MEDS: Lanoxin 0.125MG TABLET PO SCH (21:49)
[2017-11-13] MEDS: xanAX 0.25 MG PO PRN (21:49)
[2017-11-14 06:39] LABS: INR 1.86 (0.8-3.0)
[2017-11-14 07:00] VITALS: BP 122/68
[2017-11-14] MEDS: Advair Hfa 230/21 Mcg COMMON CANISTER IH SCH (08:34)
[2017-11-14 08:49] VITALS: PULSE 89; O2SAT 92
[2017-11-14] MEDS: BUMEX 1 MG PO SCH (09:10)
[2017-11-14] MEDS: MAG-OX 400 PO SCH (09:11)
[2017-11-14] MEDS: Klor Con 10 MEQ PO SCH (09:11)
[2017-11-14] MEDS: CLARITIN 10 MG PO SCH (09:11)
[2017-11-14] MEDS: Toprol-Xl 25MG Tablets PO SCH (09:11)
[2017-11-14] MEDS: SYNTHROID 25 MCG PO SCH (09:11)
[2017-11-14] MEDS: ARTHROTEC PO SCH (09:12)
[2017-11-14] MEDS ORDERED: TROUGH DRUG LEVELS IJ ONE ×2 (09:30→21:30)
[2017-11-14 10:10] LABS: Creatinine 1 1.33 mg/dl (0.55-1.30)
[2017-11-14] MEDS: VANCOCIN 1 GM VIAL*** 1.5 GM in Dextrose 5%-1/4NS IV Soln. 500 ML 500 ML IV SCH (10:55)
[2017-11-14] MEDS ORDERED: VANCOCIN 1 GM VIAL*** 1.5 GM in Dextrose 5%-1/4NS IV Soln. 500 ML 500 ML IV SCH (18:00)
== END 2017-11-14 11:15 | disposition swing bed (61) | DRG 603 ==
LOC: ED 20:46 → MED SURG 23:50
PROVIDERS: ADMIT General Practice; ATTEND General Practice
DX: L03.116 Cellulitis of left lower limb (principal); L97.829 Non-pressure chronic ulcer of other part of left lower leg with unspecified severity; L02.419 Cutaneous abscess of limb, unspecified; I50.9 Heart failure, unspecified; I48.91 Unspecified atrial fibrillation; J45.909 Unspecified asthma, uncomplicated; I11.0 Hypertensive heart disease with heart failure; M79.89 Other specified soft tissue disorders; G47.33 Obstructive sleep apnea (adult) (pediatric); G62.9 Polyneuropathy, unspecified; J44.9 Chronic obstructive pulmonary disease, unspecified; M19.90 Unspecified osteoarthritis, unspecified site; Z79.01 Long term (current) use of anticoagulants; Z79.899 Other long term (current) drug therapy
CPT/HCPCS: 36000; 36415; 80053; 80162; 80202; 82565; 83605; 85025; 85027; 85610; 87040; 93971; 94640; 94760; 96365; 99285; J3370; Q0162; A9270-GY

== ENCOUNTER 2017-11-14 11:15 | Inpatient (IN) | payer MEDICARE, OTHER ==
[2017-11-14] MEDS ORDERED: DUONEB 0.5-3 MG/3 ml Neb IH PRN (12:27)
[2017-11-14] MEDS ORDERED: Flonase NASAL NS PRN (12:28)
[2017-11-14] MEDS ORDERED: ZOFRAN ODT 4 MG PO PRN (12:28)
--- NOTE | 2017-11-14 12:34 | PCM.HP ---
History of Present Illness - Chief Complaint Chief Complaint: Deconditioning r/t cellulitis LLE History of Present Illness: is a 82 year old male.admitted for reconditioning - Review of Systems Constitutional: No Fever, No Chills Eyes: No Symptoms Ears, Nose, & Throat: No Symptoms Respiratory: No Cough, No Short Of Breath Cardiac: No Chest Pain, No Edema, No Syncope Abdominal/Gastrointestinal: No Abdominal Pain, No Nausea, No Vomiting, No Diarrhea Genitourinary Symptoms: No Dysuria Musculoskeletal: No Back Pain, No Neck Pain Skin: No Rash Neurological: No Dizziness, No Focal Weakness, No Sensory Changes Psychological: No Symptoms Endocrine: No Symptoms Hematologic/Lymphatic: No Symptoms Immunological/Allergic: No Symptoms Medications & Allergies Home Medications: Home Medication List Alprazolam 0.25 mg [xanAX 0.25 MG] 0.25 mg PO TIDPRN PRN 06/04/14 [ History Confirmed 11/14/17] Bumetanide 1 mg [Bumex 1 mg] 1.5 mg PO BID 06/04/14 [History Confirmed ] Diclofenac Sodium/Misoprostol [Diclofenac-Misoprost 50-200 Tb] 50,200 mg PO BID 06/04/14 [History Confirmed 11/14/17] Digoxin 0.125 mg Tablet [Lanoxin 0.125MG TABLET] 125 mcg PO HS 06/04/14 [ History Confirmed 11/14/17] Metoprolol Succinate 50 mg [Toprol Xl 50 MG] 25 mg PO BID 06/04/14 [ History Confirmed 11/14/17] Potassium Chloride [Klor-Con 10] 20 meq PO BID 06/04/14 [History Confirmed 11/14] Fexofenadine HCl [Liyah Allergy] 180 mg PO DAILY 08/29/15 [History Confirmed 11/14/17] Acetaminophen 325 mg [Tylenol 325 mg] 650 mg PO Q4H PRN PRN 07/15/17 [ History Confirmed 11/14/17] Albuterol Sulfate [Proair Hfa] 2 puffs PO QID 07/15/17 [History Confirmed ] Budesonide/Formoterol Fumarate [Symbicort 80-4.5 Mcg Inhaler] 2 puffs PO BID [History Confirmed 11/14/17] Fluticasone Propionate [Flonase Allergy Relief] 1 spray IH DAILY PRN PRN [History Confirmed 11/14/17] Magnesium Oxide 400 mg [Mag-Ox 400] 400 mg PO DAILY #30 tablet 07/18/17 [ Rx Confirmed 11/14/17] Levothyroxine Sodium 25 Mcg [Synthroid 25 Mcg] 25 mcg PO DAILY 11/11/17 [ History Confirmed 11/14/17] Warfarin Sodium 2 mg [Coumadin 2 MG] 6 mg PO EVENING MEAL 11/11/17 [ History Confirmed 11/14/17] Allergies/Adverse Reactions: Allergies Allergy/AdvReac Type Severity Reaction Status Date / Time iodine Allergy Severe Difficulty Verified 11/14/17 11:23 Breathing shellfish derived Allergy Severe Difficulty Verified 11/14/17 11:23 Breathing - Past Medical History Past Medical History: Yes Neurological History: Peripheral Neuropathy ENT History: No Pertinent History Cardiac History: Arrhythmia, Congestive Heart Failure Respiratory History: Asthma, CHF, COPD Endocrine Medical History: No Pertinent History Musculoskelatal History: Arthritis GI Medical History: No Pertinent History History: Other Pyscho-Social History: No Pertinent History Male Reproductive Disorders: No Pertinent History Comment: AT [facility] ON CPAP WITH 2 LITERS OXYGEN; - Past Surgical History Past Surgical History: Yes Neuro Surgical History: No Pertinent History Cardiac History: No Pertinent History Respiratory Surgery: No Pertinent History GI Surgical History: No Pertinent History Genitourinary Surgical Hx: No Pertinent History Musculskeletal Surgical Hx: Joint Replacement Male Surgical History: Prostate Surgery Other Surgical History: HIP 2009. TURP 1999. - Social History Smoking Status: Former smoker Exposure to second hand smoke: No Alcohol: None Drug Use: none - Physical Exam Vital Signs: Vital Signs - 24 hr Temp Pulse Resp BP Pulse Ox 11/14/17 12:29 97.6 F 99 H 20 140/78 96 General Appearance: no apparent distress, alert Neurologic Exam: alert, oriented x 3, cooperative, normal mood/affect, nml cerebellar function, nml station & gait, sensation nml, No motor deficits Eye Exam: PERRL/EOMI, eyes nml inspection Ears, Nose, Throat Exam: normal ENT inspection, TMs normal, pharynx normal, moist mucous membranes Neck Exam: normal inspection, non-tender, supple, full range of motion Respiratory Exam: normal breath sounds, lungs clear, No respiratory distress Cardiovascular Exam: regular rate/rhythm, normal heart sounds, normal peripheral pulses Gastrointestinal/Abdomen Exam: soft, normal bowel sounds, No tenderness, No mass Back Exam: normal inspection, normal range of motion, No CVA tenderness, No vertebral tenderness Extremity Exam: normal inspection, normal range of motion, pelvis stable, inflammation Skin Exam: normal color, warm, dry, No rash Lymphatic Exam: No adenopathy Results - Other Procedures and Tests Respiratory Therapy 11/14/17 11:40 BiPap/CPAP Assessment ROUTINE Assessment/Plan (1) Abscess or cellulitis of leg Current Visit: Yes Status: Acute Assessment & Plan: Chief Complaint Diagnosis Deconditioning r/t cellulitis LLE Allergies Allergy/AdvReac Type Severity Reaction Status Date / Time iodine Allergy Severe Difficulty Verified 11/14/17 11:23 Breathing shellfish derived Allergy Severe Difficulty Verified 11/14/17 11:23 Breathing Vital Signs (Last 24 hours) Temp Pulse Resp BP Pulse Ox 11/14/17 12:29 97.6 F 99 H 20 140/78 96 Current Medications Generic Name Dose Route Start Last Admin Trade Name Freq PRN Reason Stop Dose Admin Acetaminophen 650 mg 11/14/17 12:27 Tylenol 325 Mg PO 12/14/17 12:26 Q4H PRN PRN Albuterol/Ipratropium 3 ml 11/14/17 12:27 Duoneb 0.5-3 Mg/3 Ml Neb IH 12/14/17 12:26 Q4H PRN PRN Alprazolam 0.25 mg 11/14/17 12:28 Xanax 0.25 Mg PO 12/14/17 12:27 TID PRN PRN Bumetanide 1.5 mg 11/14/17 17:00 Bumex 1 Mg PO 12/14/17 16:59 BID DIURETIC JONY Diclofenac/Misoprostol 1 tablet 11/14/17 22:00 Arthrotec 50mg/200 Mg Tablet Ec PO 12/14/17 21:59 BID JONY Digoxin 0.125 mg 11/14/17 22:00 Lanoxin 0.125mg Tablet PO 12/14/17 21:59 HS JONY Fluticasone Propionate 0 gm 11/14/17 12:28 Flonase Nasal NS 12/14/17 12:27 DAILY PRN PRN Vancomycin HCl 1.5 gm/ 500 mls @ 250 mls/hr 11/14/17 18:00 Dextrose/Sodium Chloride IV 12/14/17 17:59 Q24H JONY Levothyroxine Sodium 25 mcg 11/15/17 10:00 Synthroid 25 Mcg PO 12/15/17 09:59 DAILY JONY Loratadine 10 mg 11/15/17 10:00 Claritin 10 Mg PO 12/15/17 09:59 DAILY JONY Magnesium Oxide 400 mg 11/15/17 10:00 Mag-Ox 400 PO 12/15/17 09:59 DAILY JONY Metoprolol Succinate 25 mg 11/14/17 22:00 Toprol-Xl 25mg Tablets PO 12/14/17 21:59 BID JONY Ondansetron HCl 4 mg 11/14/17 12:28 Zofran Odt 4 Mg PO 12/14/17 12:27 Q6H PRN PRN Potassium Chloride 20 meq 11/14/17 22:00 Klor Con 10 Meq PO 12/14/17 21:59 BID JONY Fluticasone/Salmeterol 2 puff 11/14/17 19:00 Advair Hfa 230/21 Mcg Common Canister* IH 12/14/17 18:59 BIDRT JONY Tuberculin PPD 5 unit 11/15/17 10:00 Aplisol ID 11/15/17 10:01 DAILY JONY Tuberculin PPD 5 unit 11/26/17 10:00 Aplisol ID 11/26/17 10:01 DAILY JONY Orders (Last 24 hours) Category Date Time Status Admission/Status Order ROUTINE Care 11/14/17 11:15 Active Ambulate Patient TID Care 11/14/17 11:37 Active Fall Protocol Q1H Care 11/14/17 11:39 Active Vital Signs QSHIFT Care 11/14/17 11:39 Active Weight,Daily 0600 Care 11/14/17 11:39 Active Cardio-Pulmonary Rehab .as ordered Cons 11/14/17 11:34 Active Healthy Heart Diet Diet 11/14/17 Lunch Active BMP Routine Lab 11/28/17 04:00 Ordered Acetaminophen 325 mg [Tylenol 325 mg] Med 11/14/17 12:27 Active 650 mg PO Q4H PRN PRN Albuterol/Ipratropium 3ml Neb* [DUONEB 0.5-3 MG/3 ml Med 11/14/17 12:27 Active Neb] 3 ml IH Q4H PRN PRN Alprazolam 0.25 mg [xanAX 0.25 MG] Med 11/14/17 12:28 Active 0.25 mg PO TID PRN PRN Bumetanide 1 mg [Bumex 1 mg] Med 11/14/17 17:00 Active 1.5 mg PO BID DIURETIC Diclofenac Sodium/Misoprostol* [Arthrotec 50MG/200 MG Med 11/14/17 22:00 Active Tablet EC] 1 tablet PO BID Digoxin 0.125 mg Tablet [Lanoxin 0.125MG TABLET] Med 11/14/17 22:00 Active 0.125 mg PO HS Fluticasone Propionate [Flonase NASAL] Med 11/14/17 12:28 Active 0 gm NS DAILY PRN PRN Fluticasone/Salmeterol 230/21 [Advair Hfa 230/21 Mcg Med 11/14/17 19:00 Active COMMON CANISTER*] 2 puff IH BIDRT Levothyroxine Sodium 25 Mcg [Synthroid 25 Mcg] Med 11/15/17 10:00 Active 25 mcg PO DAILY Loratadine 10 mg [Claritin 10 mg] Med 11/15/17 10:00 Active 10 mg PO DAILY Magnesium Oxide 400 mg [Mag-Ox 400] Med 11/15/17 10:00 Active 400 mg PO DAILY Metoprolol Succinate 25 mg Xl* [Toprol-Xl 25MG Tablets* Med 11/14/17 22:00 Active ] 25 mg PO BID Ondansetron ODT 4 MG [Zofran Odt 4 mg] Med 11/14/17 12:28 Active 4 mg PO Q6H PRN PRN Potassium Chloride 10 Meq Tab* [Klor Con 10 MEQ] Med 11/14/17 22:00 Active 20 meq PO BID Tuberculin,Purif.prot.deriv. [Aplisol] Med 11/15/17 10:00 Active 5 unit ID DAILY Tuberculin,Purif.prot.deriv. [Aplisol] Med 11/26/17 10:00 Active 5 unit ID DAILY Vancomycin HCl 1 gm Inj [Vancocin 1 gm Vial] 1.5 Med 11/14/17 18:00 Active gm D5%-0.25% NaCl 500 ml [Dextrose 5%-1/4NS IV Soln. 500 ML] 500 ml IV Q24H PT Eval & Treat (MD Order) ROUTINE PT 11/14/17 11:38 Active BiPap/CPAP Assessment ROUTINE RT 11/14/17 11:40 Active Code(s): L02.419 - CUTANEOUS ABSCESS OF LIMB, UNSPECIFIED; L03.119 - CELLULITIS OF UNSPECIFIED PART OF LIMB (2) Cellulitis of leg Current Visit: No Status: Acute (3) Atrial fibrillation Current Visit: No Status: Chronic Code(s): I48.91 - UNSPECIFIED ATRIAL FIBRILLATION (4) Hypertensive heart disease with congestive heart failure Current Visit: No Status: Chronic Code(s): I11.0 - HYPERTENSIVE HEART DISEASE WITH HEART FAILURE (5) Sleep apnea in adult Current Visit: No Status: Chronic Code(s): G47.33 - OBSTRUCTIVE SLEEP APNEA (ADULT) (PEDIATRIC)
[2017-11-14 14:08] LABS: Hematocrit 40.5 % (42-50); Hemoglobin 12.8 gm/dl (12.5-18.0); Mean Cell Volume 95.1 fl (78-100); Mean Corpuscular Hgb Concent. 31.6 g/dl (32-36); Mean Platelet Volume 10.6 fl (6-9.5); Platelet Count 312 K/mm3 (150-450); Red Blood Count 4.26 M/mm3 (4.1-5.6); Red Cell Distribution Width 14.3 % (11.5-14.0); White Blood Count 7.9 K/mm3 (4.0-10.5)
[2017-11-14 14:38] LABS: ANION GAP 9.9 MEQ/L (5-15); Calcium 8.9 mg/dL (8.5-10.1); Carbon Dioxide 30.4 mEq/L (21-32); Creatinine 1 1.38 mg/dl (0.55-1.30); PREALBUMIN 15.2 mg/dL (18.0-35.7); Potassium 3.7 mEq/L (3.5-5.1)
[2017-11-14] MEDS: BUMEX 1 MG PO SCH (16:56)
[2017-11-14] MEDS: Coumadin 3 MG PO SCH (18:30)
[2017-11-14] MEDS: VANCOCIN 1 GM VIAL*** 1.5 GM in Dextrose 5%-1/4NS IV Soln. 500 ML 500 ML IV SCH (18:30)
[2017-11-14] MEDS: Advair Hfa 230/21 Mcg COMMON CANISTER IH SCH (19:53)
[2017-11-14] MEDS: Klor Con 10 MEQ PO SCH (22:32)
[2017-11-14] MEDS: Toprol-Xl 25MG Tablets PO SCH (22:32)
[2017-11-14] MEDS: TYLENOL 325 MG PO PRN (22:33)
[2017-11-14] MEDS: Lanoxin 0.125MG TABLET PO SCH (22:33)
[2017-11-14] MEDS: xanAX 0.25 MG PO PRN (22:36)
[2017-11-14] MEDS: ARTHROTEC PO SCH (22:37)
[2017-11-15 06:32] LABS: INR 1.48 (0.8-3.0)
[2017-11-15] MEDS: Advair Hfa 230/21 Mcg COMMON CANISTER IH SCH ×2 (06:53→20:56)
--- NOTE | 2017-11-15 09:14 | PCM.NOTE ---
Date and Time: 11/15/17912 Subjective Assessment: doing better - Review of Systems Constitutional: No Fever, No Chills Eyes: No Symptoms Ears, Nose, & Throat: No Symptoms Respiratory: No Cough, No Short Of Breath Cardiac: No Chest Pain, No Edema, No Syncope Abdominal/Gastrointestinal: No Abdominal Pain, No Nausea, No Vomiting, No Diarrhea Genitourinary Symptoms: No Dysuria Musculoskeletal: No Back Pain, No Neck Pain Skin: No Rash Neurological: No Dizziness, No Focal Weakness, No Sensory Changes Psychological: No Symptoms Endocrine: No Symptoms Hematologic/Lymphatic: No Symptoms Immunological/Allergic: No Symptoms Objective Exam General Appearance: no apparent distress, alert Neurologic Exam: alert, oriented x 3, cooperative, normal mood/affect, nml cerebellar function, sensation nml, No motor deficits Skin Exam: normal color, warm, dry Eye Exam: PERRL, EOMI, eyes nml inspection Ears, Nose, Throat Exam: normal ENT inspection, pharynx normal, moist mucous membranes Neck Exam: normal inspection, non-tender, supple, full range of motion Respiratory Exam: normal breath sounds, lungs clear, No respiratory distress Cardiovascular Exam: regular rate/rhythm, normal heart sounds Gastrointestinal/Abdomen Exam: soft, No tenderness, No mass Extremity Exam: normal inspection, normal range of motion Back Exam: normal inspection, normal range of motion, No CVA tenderness, No vertebral tenderness Male Genitalia Exam: deferred Rectal Exam: deferred OBJECTIVE DATA Vital Signs: Vital Signs - 24 hr Temp Pulse Resp BP BP BP Pulse Ox 11/15/17 07:27 97.6 F 78 20 118/64 96 11/15/17 06:50 98 H 26 H 94 L 11/14/17 22:33 71 116/62 11/14/17 21:00 97.8 F 71 20 116/62 96 11/14/17 19:53 95 H 18 95 11/14/17 15:20 94 L 11/14/17 12:29 97.6 F 99 H 20 140/78 96 11/14/17 11:34 97.8 F 98 H 20 122/68 98 Pain Assessment - Last Documented Pain Intensity 0 [facility] Intake and Output: Intake & Output 11/12/17 11/13/17 11/14/17 11/15/17 11:59 11:59 11:59 11:59 Intake Total 3200 Output Total 6400 Balance -3200 Weight 122.2 kg 123.1 kg Lab Results: Lab Results-Last 24 Hours 11/14/17 11/14/17 11/15/17 Range/Units 12:55 12:55 05:24 WBC 7.9 (4.0-10.5) K/mm3 RBC 4.26 (4.1-5.6) M/mm3 Hgb 12.8 (12.5-18.0) gm/dl Hct 40.5 L (42-50) % MCV 95.1 (78-100) fl MCH 30.0 (26-32) pg MCHC 31.6 L (32-36) g/dl RDW 14.3 H (11.5-14.0) % Plt Count 312 (150-450) K/mm3 MPV 10.6 H (6-9.5) fl INR 1.48 (0.8-3.0) Sodium 137 (136-145) mEq/L Potassium 3.7 (3.5-5.1) mEq/L Chloride 100 (98-107) mEq/L Carbon Dioxide 30.4 (21-32) mEq/L Anion Gap 9.9 (5-15) MEQ/L BUN 25 H (9-20) mg/dL Creatinine 1.38 H (0.55-1.30) mg/dl Estimated GFR 53 ML/MIN Glucose 181 H (70-110) MG/DL Calcium 8.9 (8.5-10.1) mg/dL Prealbumin 15.2 L (18.0-35.7) mg/dL Assessment/Plan (1) Abscess or cellulitis of leg Current Visit: Yes Status: Acute Assessment & Plan: continue present management Code(s): L02.419 - CUTANEOUS ABSCESS OF LIMB, UNSPECIFIED; L03.119 - CELLULITIS OF UNSPECIFIED PART OF LIMB (2) Cellulitis of leg Current Visit: No Status: Acute (3) Atrial fibrillation Current Visit: No Status: Chronic Code(s): I48.91 - UNSPECIFIED ATRIAL FIBRILLATION (4) Hypertensive heart disease with congestive heart failure Current Visit: No Status: Chronic Code(s): I11.0 - HYPERTENSIVE HEART DISEASE WITH HEART FAILURE (5) Sleep apnea in adult Current Visit: No Status: Chronic Code(s): G47.33 - OBSTRUCTIVE SLEEP APNEA (ADULT) (PEDIATRIC)
[2017-11-15] MEDS: MAG-OX 400 PO SCH (09:33)
[2017-11-15] MEDS: BUMEX 1 MG PO SCH ×2 (09:33→16:56)
[2017-11-15] MEDS: Toprol-Xl 25MG Tablets PO SCH ×2 (09:33→23:20)
[2017-11-15] MEDS: Klor Con 10 MEQ PO SCH ×2 (09:33→23:19)
[2017-11-15] MEDS: CLARITIN 10 MG PO SCH (09:34)
[2017-11-15] MEDS: SYNTHROID 25 MCG PO SCH (09:34)
[2017-11-15] MEDS: ARTHROTEC PO SCH ×2 (09:34→23:19)
[2017-11-15] MEDS ORDERED: Aplisol ID SCH (10:00)
[2017-11-15] MEDS ORDERED: TROUGH DRUG LEVELS IJ ONE (17:30)
[2017-11-15] MEDS: Coumadin 3 MG PO SCH (18:31)
[2017-11-15] MEDS: VANCOCIN 1 GM VIAL*** 1.5 GM in Dextrose 5%-1/4NS IV Soln. 500 ML 500 ML IV SCH (18:31)
[2017-11-15] MEDS: Lanoxin 0.125MG TABLET PO SCH (23:20)
[2017-11-15] MEDS: TYLENOL 325 MG PO PRN (23:24)
[2017-11-15] MEDS: xanAX 0.25 MG PO PRN (23:24)
[2017-11-16] MEDS: Advair Hfa 230/21 Mcg COMMON CANISTER IH SCH ×2 (07:44→20:14)
[2017-11-16] MEDS: Toprol-Xl 25MG Tablets PO SCH ×2 (10:50→21:35)
[2017-11-16] MEDS: BUMEX 1 MG PO SCH ×2 (10:50→17:55)
[2017-11-16] MEDS: ARTHROTEC PO SCH ×2 (10:50→21:34)
[2017-11-16] MEDS: Klor Con 10 MEQ PO SCH ×2 (10:50→21:35)
[2017-11-16] MEDS: CLARITIN 10 MG PO SCH (10:50)
[2017-11-16] MEDS: SYNTHROID 25 MCG PO SCH (10:50)
[2017-11-16] MEDS: MAG-OX 400 PO SCH (10:50)
--- NOTE | 2017-11-16 12:10 | PCM.NOTE ---
Date and Time: 11/16/17 1210 Subjective Assessment: doing ok - Review of Systems Constitutional: No Fever, No Chills Eyes: No Symptoms Ears, Nose, & Throat: No Symptoms Respiratory: No Cough, No Short Of Breath Cardiac: No Chest Pain, No Edema, No Syncope Abdominal/Gastrointestinal: No Abdominal Pain, No Nausea, No Vomiting, No Diarrhea Genitourinary Symptoms: No Dysuria Musculoskeletal: No Back Pain, No Neck Pain Skin: No Rash Neurological: No Dizziness, No Focal Weakness, No Sensory Changes Psychological: No Symptoms Endocrine: No Symptoms Hematologic/Lymphatic: No Symptoms Immunological/Allergic: No Symptoms Objective Exam General Appearance: no apparent distress, alert Neurologic Exam: alert, oriented x 3, cooperative, normal mood/affect, nml cerebellar function, sensation nml, No motor deficits Skin Exam: normal color, warm, dry Eye Exam: PERRL, EOMI, eyes nml inspection Ears, Nose, Throat Exam: normal ENT inspection, pharynx normal, moist mucous membranes Neck Exam: normal inspection, non-tender, supple, full range of motion Respiratory Exam: normal breath sounds, lungs clear, No respiratory distress Cardiovascular Exam: regular rate/rhythm, normal heart sounds Gastrointestinal/Abdomen Exam: soft, No tenderness, No mass Extremity Exam: normal inspection, normal range of motion Back Exam: normal inspection, normal range of motion, No CVA tenderness, No vertebral tenderness Male Genitalia Exam: deferred Rectal Exam: deferred OBJECTIVE DATA Vital Signs: Vital Signs - 24 hr Temp Pulse Resp BP BP Pulse Ox 11/16/17 07:45 96 H 18 93 L 11/16/17 07:00 98.4 F 109 H 18 131/87 98 11/15/17 23:20 99 H 151/86 11/15/17 20:56 89 18 94 L Pain Assessment - Last Documented Pain Intensity 3 Pain Scale Used 0-10 Pain Scale Intake and Output: Intake & Output 11/14/17 11/15/17 11/16/17 11/17/17 11:59 11:59 11:59 11:59 Intake Total 3200 3260 Output Total 6400 5190 Balance -3200 -1930 Weight 122.2 kg 123.1 kg 122 kg Lab Results: Lab Results-Last 24 Hours 11/15/17 Range/Units 17:45 Vancomycin Trough 17.7 (10-20) UG/ML Assessment/Plan (1) Abscess or cellulitis of leg Current Visit: Yes Status: Acute Code(s): L02.419 - CUTANEOUS ABSCESS OF LIMB, UNSPECIFIED; L03.119 - CELLULITIS OF UNSPECIFIED PART OF LIMB (2) Cellulitis of leg Current Visit: No Status: Acute (3) Atrial fibrillation Current Visit: No Status: Chronic Code(s): I48.91 - UNSPECIFIED ATRIAL FIBRILLATION (4) Hypertensive heart disease with congestive heart failure Current Visit: No Status: Chronic Code(s): I11.0 - HYPERTENSIVE HEART DISEASE WITH HEART FAILURE (5) Sleep apnea in adult Current Visit: No Status: Chronic Code(s): G47.33 - OBSTRUCTIVE SLEEP APNEA (ADULT) (PEDIATRIC)
[2017-11-16] MEDS: Coumadin 3 MG PO SCH (17:55)
[2017-11-16] MEDS: VANCOCIN 1 GM VIAL*** 1.5 GM in Dextrose 5%-1/4NS IV Soln. 500 ML 500 ML IV SCH (18:01)
[2017-11-16] MEDS: TYLENOL 325 MG PO PRN (21:33)
[2017-11-16] MEDS: xanAX 0.25 MG PO PRN (21:34)
[2017-11-16] MEDS: Lanoxin 0.125MG TABLET PO SCH (21:34)
[2017-11-17 05:52] LABS: Creatinine 1 1.5 mg/dl (0.55-1.30)
[2017-11-17 06:57] LABS: INR 1.55 (0.8-3.0)
[2017-11-17] MEDS: Advair Hfa 230/21 Mcg COMMON CANISTER IH SCH (07:11)
[2017-11-17] MEDS: MAG-OX 400 PO SCH (10:19)
[2017-11-17] MEDS: Toprol-Xl 25MG Tablets PO SCH ×2 (10:19→21:14)
[2017-11-17] MEDS: SYNTHROID 25 MCG PO SCH (10:19)
[2017-11-17] MEDS: BUMEX 1 MG PO SCH ×2 (10:19→17:37)
[2017-11-17] MEDS: CLARITIN 10 MG PO SCH (10:19)
[2017-11-17] MEDS: ARTHROTEC PO SCH ×2 (10:20→21:15)
[2017-11-17] MEDS: Klor Con 10 MEQ PO SCH ×2 (10:20→21:14)
[2017-11-17] MEDS: Coumadin 3 MG PO SCH (17:37)
[2017-11-17] MEDS ORDERED: TROUGH DRUG LEVELS IJ ONE (17:40)
[2017-11-17] MEDS: VANCOCIN 1 GM VIAL*** 1.5 GM in Dextrose 5%-1/4NS IV Soln. 500 ML 500 ML IV SCH (19:00)
[2017-11-17] MEDS: TYLENOL 325 MG PO PRN (21:13)
[2017-11-17] MEDS: xanAX 0.25 MG PO PRN (21:14)
[2017-11-17] MEDS: Lanoxin 0.125MG TABLET PO SCH (21:14)
[2017-11-18] MEDS: Advair Hfa 230/21 Mcg COMMON CANISTER IH SCH (06:57)
[2017-11-18 08:27] VITALS: BP 148/65; PULSE 118; O2SAT 93
[2017-11-18] MEDS: BUMEX 1 MG PO SCH (08:38)
[2017-11-18] MEDS: Toprol-Xl 25MG Tablets PO SCH (08:38)
[2017-11-18] MEDS: MAG-OX 400 PO SCH (08:39)
[2017-11-18] MEDS: SYNTHROID 25 MCG PO SCH (08:39)
[2017-11-18] MEDS: Klor Con 10 MEQ PO SCH (08:39)
[2017-11-18] MEDS: ARTHROTEC PO SCH (08:39)
[2017-11-18] MEDS: CLARITIN 10 MG PO SCH (08:39)
--- NOTE | 2017-11-18 14:47 | PCM.DS ---
Discharge Summary Date of Admission: 11/14/17 11:15 Admitting Physician: VISHNU GARCIA Primary Care Provider: VISHNU GARCIA Allergies Allergies iodine Allergy (Severe, Verified 11/14/17 11:23) Difficulty Breathing shellfish derived Allergy (Severe, Verified 11/14/17 11:23) Difficulty Breathing Hospital Summary - Hospital Course Hospital Course: Chief Complaint Diagnosis Deconditioning r/t cellulitis LLE Allergies Allergy/AdvReac Type Severity Reaction Status Date / Time iodine Allergy Severe Difficulty Verified 11/14/17 11:23 Breathing shellfish derived Allergy Severe Difficulty Verified 11/14/17 11:23 Breathing Vital Signs (Last 24 hours) Temp Pulse Resp BP BP Pulse Ox 11/18/17 07:00 97.6 F 118 H 20 148/65 93 L 11/18/17 06:57 107 H 16 94 L 11/17/17 21:14 100 H 123/78 11/17/17 20:11 100 H 20 95 Current Medications Generic Name Dose Route Start Last Admin Trade Name Freq PRN Reason Stop Dose Admin Acetaminophen 650 mg 11/14/17 12:27 11/17/17 21:13 Tylenol 325 Mg PO 12/14/17 12:26 650 mg Q4H PRN PRN Administration Albuterol/Ipratropium 3 ml 11/14/17 12:27 Duoneb 0.5-3 Mg/3 Ml Neb IH 12/14/17 12:26 Q4H PRN PRN Alprazolam 0.25 mg 11/14/17 12:28 11/17/17 21:14 Xanax 0.25 Mg PO 12/14/17 12:27 0.25 mg TID PRN PRN Administration Bumetanide 1.5 mg 11/14/17 17:00 11/18/17 08:38 Bumex 1 Mg PO 12/14/17 16:59 1.5 mg BID DIURETIC JONY Administration Diclofenac/Misoprostol 1 tablet 11/14/17 22:00 11/18/17 08:39 Arthrotec 50mg/200 Mg Tablet Ec PO 12/14/17 21:59 1 tablet BID JONY Administration Digoxin 0.125 mg 11/14/17 22:00 11/17/17 21:14 Lanoxin 0.125mg Tablet PO 12/14/17 21:59 0.125 mg HS JONY Administration Fluticasone Propionate 0 gm 11/14/17 12:28 Flonase Nasal NS 12/14/17 12:27 DAILY PRN PRN Vancomycin HCl 1.5 gm/ 500 mls @ 250 mls/hr 11/14/17 18:00 11/17/17 19:00 Dextrose/Sodium Chloride IV 12/14/17 17:59 250 mls/hr Q24H JONY Administration Levothyroxine Sodium 25 mcg 11/15/17 10:00 11/18/17 08:39 Synthroid 25 Mcg PO 12/15/17 09:59 25 mcg DAILY JONY Administration Loratadine 10 mg 11/15/17 10:00 11/18/17 08:39 Claritin 10 Mg PO 12/15/17 09:59 10 mg DAILY JONY Administration Magnesium Oxide 400 mg 11/15/17 10:00 11/18/17 08:39 Mag-Ox 400 PO 12/15/17 09:59 400 mg DAILY JONY Administration Metoprolol Succinate 25 mg 11/14/17 22:00 11/18/17 08:38 Toprol-Xl 25mg Tablets PO 12/14/17 21:59 25 mg BID JONY Administration Ondansetron HCl 4 mg 11/14/17 12:28 Zofran Odt 4 Mg PO 12/14/17 12:27 Q6H PRN PRN Potassium Chloride 20 meq 11/14/17 22:00 11/18/17 08:39 Klor Con 10 Meq PO 12/14/17 21:59 20 meq BID JONY Administration Fluticasone/Salmeterol 2 puff 11/14/17 19:00 11/18/17 06:57 Advair Hfa 230/21 Mcg Common Canister* IH 12/14/17 18:59 2 puff BIDRT JONY Administration Tuberculin PPD 5 unit 11/26/17 10:00 Aplisol ID 11/26/17 10:01 DAILY JONY Warfarin Sodium 6 mg 11/14/17 18:00 11/17/17 17:37 Coumadin 3 Mg PO 12/14/17 17:59 6 mg COU JONY Administration Discontinued Medications Generic Name Dose Route Start Last Admin Trade Name Freq PRN Reason Stop Dose Admin Tuberculin PPD 5 unit 11/15/17 10:00 11/15/17 09:43 Aplisol ID 11/15/17 10:01 5 unit DAILY JONY Administration Intake & Output (Last 24 hours) 11/16/17 11/17/17 11/18/17 11/19/17 11:59 11:59 11:59 11:59 Intake Total 3260 2880 1440 480 Output Total 5190 2700 2610 Balance -1930 180 -1170 480 Weight 122 kg 122.2 kg 122 kg Laboratory Results (Last 24 hours) 11/17/17 17:45 Vancomycin Trough 18.7 Orders (Last 24 hours) Category Date Time Status BMP Routine Lab 11/28/17 04:00 Ordered PT INR [PROTIME WITH INR] EVERY OTHER DAY Lab 11/19/17 10:00 Ordered PT INR [PROTIME WITH INR] EVERY OTHER DAY Lab 11/21/17 10:00 Ordered PT INR [PROTIME WITH INR] EVERY OTHER DAY Lab 11/23/17 10:00 Ordered PT INR [PROTIME WITH INR] EVERY OTHER DAY Lab 11/25/17 10:00 Ordered PT INR [PROTIME WITH INR] EVERY OTHER DAY Lab 11/27/17 10:00 Ordered PT INR [PROTIME WITH INR] EVERY OTHER DAY Lab 11/29/17 10:00 Ordered Vancomycin,Trough Urgent Lab 11/17/17 17:45 Completed Therapuetic Drug Level Monitor [Trough Drug Levels] Med 11/17/17 17:40 Discontinued 1 IJ 1XONLY ONE Tuberculin,Purif.prot.deriv. [Aplisol] Med 11/26/17 10:00 Active 5 unit ID DAILY - Vitals & Intake/Output Vital Signs: Vital Signs Temperature 97.6 F 11/18/17 07:00 Pulse Rate 118 H 11/18/17 07:00 Respiratory Rate 20 11/18/17 07:00 Blood Pressure 148/65 11/18/17 07:00 O2 Sat by Pulse Oximetry 93 L 11/18/17 07:00 Intake & Output: Intake & Output 11/16/17 11/17/17 11/18/17 11/19/17 11:59 11:59 11:59 11:59 Intake Total 3260 2880 1440 480 Output Total 5190 2700 2610 Balance -1930 180 -1170 480 Weight 122 kg 122.2 kg 122 kg - Lab Result Diagrams: 11/14/17 12:55 11/17/17 05:25 Lab Results-Last 24 Hrs: Lab Results-Last 24 Hours 11/17/17 Range/Units 17:45 Vancomycin Trough 18.7 (10-20) UG/ML - Procedures and Test Procedures and Tests throughout Hospitalization: Therapy Orders & Screens 11/14/17 11:38 PT Eval & Treat (MD Order) ROUTINE Reason for Eval:: Deconditioning/cellulitis LLE Diagnosis: Deconditioning r/t cellulitis LLE 11/14/17 11:40 BiPap/CPAP Assessment ROUTINE Comment: 11/14/17 15:20 Respiratory Nebulizer UD Comment: DUONEB Q4PRN Diagnosis: Deconditioning r/t cellulitis LLE 11/14/17 19:00 Respiratory MDI BID Comment: ADVAIR 230/21 BID Diagnosis: Deconditioning r/t cellulitis LLE 11/16/17 20:55 Oxygen NASAL CANNULA 2 lpm Comment: 2L AT NIGHT WITH HOME CPAP UNIT Diagnosis: Deconditioning r/t cellulitis LLE Discharge Exam General Appearance: no apparent distress, alert Neurologic Exam: alert, oriented x 3, cooperative, normal mood/affect, nml cerebellar function, sensation nml, No motor deficits Skin Exam: normal color, warm, dry Eye Exam: PERRL, EOMI, eyes nml inspection Ears, Nose, Throat Exam: normal ENT inspection, pharynx normal, moist mucous membranes Neck Exam: normal inspection, non-tender, supple, full range of motion Respiratory Exam: normal breath sounds, lungs clear, No respiratory distress Cardiovascular Exam: regular rate/rhythm, normal heart sounds Gastrointestinal/Abdomen Exam: soft, No tenderness, No mass Extremity Exam: normal inspection, normal range of motion Back Exam: normal inspection, normal range of motion, No CVA tenderness, No vertebral tenderness Male Genitalia Exam: deferred Rectal Exam: deferred Final Diagnosis/Problem List - Final Discharge Diagnosis/Problem (1) Abscess or cellulitis of leg Current Visit: Yes Status: Acute (2) Cellulitis of leg Current Visit: No Status: Acute (3) Atrial fibrillation Current Visit: No Status: Chronic (4) Hypertensive heart disease with congestive heart failure Current Visit: No Status: Chronic (5) Sleep apnea in adult Current Visit: No Status: Chronic - Discharge Discharge Date: 11/18/17 Disposition: Home, Self-Care Condition: Stable Prescriptions: No Action Bumetanide 1 mg [Bumex 1 mg] 1.5 mg PO BID Digoxin 0.125 mg Tablet [Lanoxin 0.125MG TABLET] 125 mcg PO HS Diclofenac Sodium/Misoprostol [Diclofenac-Misoprost 50-200 Tb] 50,200 mg PO BID Potassium Chloride [Klor-Con 10] 20 meq PO BID Metoprolol Succinate 50 mg [Toprol Xl 50 MG] 25 mg PO BID Alprazolam 0.25 mg [xanAX 0.25 MG] 0.25 mg PO TIDPRN PRN PRN Reason: Anxiety Fexofenadine HCl [Liyah Allergy] 180 mg PO DAILY Albuterol Sulfate [Proair Hfa] 2 puffs PO QID Budesonide/Formoterol Fumarate [Symbicort 80-4.5 Mcg Inhaler] 2 puffs PO BID Acetaminophen 325 mg [Tylenol 325 mg] 650 mg PO Q4H PRN PRN PRN Reason: Pain Fluticasone Propionate [Flonase Allergy Relief] 1 spray IH DAILY PRN PRN PRN Reason: Allergies Magnesium Oxide 400 mg [Mag-Ox 400] 400 mg PO DAILY #30 tablet Levothyroxine Sodium 25 Mcg [Synthroid 25 Mcg] 25 mcg PO DAILY Warfarin Sodium 2 mg [Coumadin 2 MG] 6 mg PO EVENING MEAL Instructions: Cellulitis (Skin Infection), Adult (DC) Follow up with: VISHNU GARCIA MD [Primary Care Provider] - 1 Week Forms: Discharge Instructions
[2017-11-26] MEDS ORDERED: Aplisol ID SCH (10:00)
== END 2017-11-18 14:43 | disposition home or self-care (01) | DRG 603 ==
LOC: MED SURG 11:15
PROVIDERS: ADMIT General Practice; ATTEND General Practice
DX: L02.416 Cutaneous abscess of left lower limb (principal); L03.116 Cellulitis of left lower limb; I48.91 Unspecified atrial fibrillation; I11.0 Hypertensive heart disease with heart failure; I50.9 Heart failure, unspecified; Z79.01 Long term (current) use of anticoagulants; Z79.899 Other long term (current) drug therapy; G62.9 Polyneuropathy, unspecified; J44.9 Chronic obstructive pulmonary disease, unspecified; J45.909 Unspecified asthma, uncomplicated; M19.90 Unspecified osteoarthritis, unspecified site; Z87.891 Personal history of nicotine dependence; G47.33 Obstructive sleep apnea (adult) (pediatric)
CPT/HCPCS: 36415; 80048; 80202; 82565; 84134; 85027; 85610; 94640; 94760; A6457; J3370; 97110-GP; A9270-GY

== ENCOUNTER 2019-04-02 17:34 | Emergency (ER) | payer OTHER, MEDICARE ==
--- NOTE | 2019-04-02 19:19 | ERPHSYRPT ---
- History of Present Illness Time Seen by Provider: 04/02/19 17:58 Source: patient Exam Limitations: clinical condition Patient Subjective Stated Complaint: Pt was walking up a ramp with his walker and got off balance and fell backwards and hit his head on a chair and a space heater, Pt also fell on his right side and his right hip was hurting, pt is on blood thinners, denies losing consciousness, denies confusion, nausea, denies vomitting, denies pain Triage Nursing Assessment: Pt was wheeled into the ER with a wheelchair, hypertensive, denies pain, pulses normal, reddened area to the medial back of neck that extends upward and has a large lump on head, Physician History: PATIENT WITH A HISTORY OF CONGESTIVE HEART FAILURE, COPD AND ASTHMA FELL WHILE WAKLING WITH WALKER, FELL BACKWARDS, STRUCK BACK OF HEAD AND COMPLAINS OF NECK PAIN. DENIES LOSS OF CONSCIOUSNESS. FELT NAUSEA INITIALLY, DENIES NUMBNESS, TINGLING OR WEAKNESS IN EXTERMIES. Occurred: just prior to arrival Reason for Fall: tripped Injuries/Pain Location: head, neck Loss of Consciousness: no loss of consciousness Quality: throbbing Severity of Pain-Max: mild Severity of Pain-Current: mild Modifying Factors: Improves With: movement Associated Symptoms (Fall): other (NECK PAIN ) Allergies/Adverse Reactions: iodine Allergy (Severe, Verified 04/02/19 17:57) Difficulty Breathing shellfish derived Allergy (Severe, Verified 04/02/19 17:57) Difficulty Breathing Home Medications: Alprazolam 0.25 mg [xanAX 0.25 MG] 0.25 mg PO TIDPRN PRN 06/04/14 [History ] Bumetanide 1 mg [Bumex 1 mg] 1.5 mg PO BID 06/04/14 [History] Digoxin 0.125 mg Tablet [Lanoxin 0.125MG TABLET] 125 mcg PO HS 06/04/14 [ History] Metoprolol Succinate 50 mg [Toprol Xl 50 MG] 25 mg PO BID 06/04/14 [ History] Potassium Chloride [Klor-Con 10] 20 meq PO BID 06/04/14 [History] Fexofenadine HCl [Liyah Allergy] 180 mg PO DAILY 08/29/15 [History] Acetaminophen 325 mg [Tylenol 325 mg] 650 mg PO Q4H PRN PRN 07/15/17 [ History] Albuterol Sulfate [Proair Hfa] 2 puffs PO QID 07/15/17 [History] Budesonide/Formoterol Fumarate [Symbicort 80-4.5 Mcg Inhaler] 2 puffs PO BID [History] Fluticasone Propionate [Flonase Allergy Relief] 1 spray IH DAILY PRN PRN [History] Levothyroxine Sodium 25 Mcg [Synthroid 25 Mcg] 25 mcg PO DAILY 11/11/17 [ History] Apixaban [Eliquis] 2.5 mg PO BID 04/02/19 [History] metOLazone [Metolazone] 5 mg PO BID 04/02/19 [History] Hx Tetanus, Diphtheria Vaccination/Date Given: Yes Hx Influenza Vaccination/Date Given: Yes Hx Pneumococcal Vaccination/Date Given: Yes - Review of Systems Constitutional: No Fever, No Chills Eyes: No Symptoms Ears, Nose, & Throat: No Symptoms Respiratory: No Symptoms, No Cough, No Dyspnea Cardiac: No Chest Pain, No Edema, No Syncope Abdominal/Gastrointestinal: No Abdominal Pain, No Nausea, No Vomiting, No Diarrhea Genitourinary Symptoms: No Symptoms, No Dysuria Musculoskeletal: Neck Pain, No Back Pain Skin: No Rash Neurological: No Dizziness, No Focal Weakness, No Sensory Changes Psychological: No Symptoms Endocrine: No Symptoms All Other Systems: Reviewed and Negative - Past Medical History Pertinent Past Medical History: Yes Neurological History: Peripheral Neuropathy ENT History: No Pertinent History Cardiac History: Congestive Heart Failure, Hypertension, Peripheral Vascular Disease, Other Respiratory History: CHF, COPD Endocrine Medical History: No Pertinent History Musculoskeletal History: Arthritis, Osteoarthritis, Other GI Medical History: No Pertinent History History: Other Psycho-Social History: No Pertinent History Male Reproductive Disorders: No Pertinent History Other Medical History: SPINAL STENOSIS. SLEEP APNEA. A-FIB. THR 2008 - Past Surgical History Past Surgical History: Yes Neuro Surgical History: No Pertinent History Cardiac: No Pertinent History Respiratory: No Pertinent History Gastrointestinal: No Pertinent History Genitourinary: No Pertinent History Musculoskeletal: Joint Replacement Male Surgical History: Prostate Surgery Other Surgical History: HIP 2009. TURP 1999. - Social History Smoking Status: Former smoker Exposure to second hand smoke: No Drug Use: none Patient Lives Alone: No - Nursing Vital Signs Nursing Vital Signs: Initial Vital Signs Temperature 97.5 F 04/02/19 17:44 Pulse Rate 63 04/02/19 17:44 Blood Pressure 131/113 04/02/19 17:44 O2 Sat by Pulse Oximetry 94 L 04/02/19 17:44 Pain Scale Pain Intensity 0 - [place] Coma Score Best Eye Response ([place]): (4) open spontaneously Best Verbal Response ([place]): (5) oriented Best Motor Response ([place]): (6) obeys commands [place] Total: 15 - Physical Exam General Appearance: no apparent distress, alert, other (A RIGID CERVICAL COLLAR APPLIED UPON ARRIVAL) Head Injury: swelling (MINIMAL OCCIPITAL SWELLING AND MODERATE TENDERNESS, NO ECCHYMOSIS), tenderness Eye Exam: PERRL/EOMI ENT Exam: airway nml Neck Exam: normal inspection, tenderness (MODERATE POST CERVICAL TENDERNESS) Respiratory/Chest Exam: normal breath sounds, No chest tenderness, No respiratory distress Cardiovascular Exam: normal heart sounds, regular rate/rhythm Gastrointestinal Exam: soft, No tenderness, No distention, No guarding, No ecchymosis Back Exam: normal inspection, No vertebral tenderness Extremity Exam: normal inspection, normal range of motion, pelvis stable, No deformities Peripheral Pulses: carotid (R): 2+, carotid (L): 2+, femoral (R): 2+, femoral (L ): 2+, dorsalis-pedis (R): 2+, dorsalis-pedis (L): 2+ Neurologic Exam: alert, oriented x 3, cooperative, sensation nml, No motor deficits Skin Exam: normal color, warm, dry SpO2 Interpretation: normal SpO2: 93 O2 Delivery: Room Air - CT Exams Head CT Interpretation: Discussed w/radiologist, No/Intracranial Hemorrhag Cervical Spine CT Interpretation: DJD, No Fracture Ordered Tests: Active Orders 24 hr Category Date Time Status Cervical Collar Application STAT Care 04/02/19 19:04 Active CERVICAL SPINE WO CONTRAST [CT] Stat Exams 04/02/19 19:03 Taken HEAD WITHOUT CONTRAST [CT] Stat Exams 04/02/19 19:03 Taken - Departure Departure Disposition: Home Clinical Impression: OCCIPITAL SCALP CONTUSION, ACUTE CERVICAL STRAIN Condition: Stable Critical Care Time: No Referrals: VISHNU GARCIA MD [Primary Care Provider] - Additional Instructions: TYLENOL EVERY 4 HOURS FOR PAIN NEEDED. APPLY ICE OVER SCALP SWELLING EVERY 4 HOURS, 30 MINUTES FOR 48 HOURS. FOLLOW HEAD INJURY INSTRUCTIONS.
[2019-04-02 20:56] VITALS: BP 152/99; PULSE 90; O2SAT 96
--- NOTE | 2019-04-03 08:57 | XRAY ---
Indication: Pain following fall. Multiple contiguous axial images obtained through the cervical spine. Sagittal and coronal reformatted images obtained. Comparison: None Osseous structures demineralized consistent with patient's age. Axial images negative for acute fracture, suspicious bony lesions, or spinal canal stenosis. There is mild/moderate multilevel degenerative endplate spurring and also moderate multilevel bilateral degenerative facet hypertrophy. Also moderate atlantoaxial degenerative arthropathy. Sagittal and coronal reformatted images demonstrates cervical lordotic reversal centered at C7. Also multilevel disc space narrowing greatest at C6-T1 levels. There is 4-5 mm C5 anterolisthesis on C6, degenerative in etiology. No acute compression fracture. Normal-appearing craniocervical junction. Visualized noncontrasted soft tissues demonstrates moderate scattered vascular calcifications. Lung apices unremarkable. Impression: 1. Negative for acute fracture. Cervical lordotic reversal, positional versus paraspinal spasm. 2. Multilevel degenerative spondylosis including grade 1 C5 spondylolisthesis. 3. Incidental osteopenia and scattered arteriosclerotic disease. CT DI 52.18
--- NOTE | 2019-04-04 16:40 | XRAY ---
Indication: Posterior head injury following fall. Multiple contiguous axial images obtained through the head without contrast. Comparison: December 04, 2009. Stable age-appropriate global atrophy and minimal periventricular degenerative micro-ischemia bilaterally. No acute intracranial hemorrhage, abnormal extra-axial fluid collection, or mass effect. Fourth ventricle is midline without hydrocephalus. Bony calvarium is intact. Visualized paranasal sinuses and mastoid air cells are clear. Impression: Nonacute senile brain. CT DI 49.11
== END 2019-04-02 20:57 | disposition home or self-care (01) ==
LOC: ED 17:34
DX: S16.1XXA Strain of muscle, fascia and tendon at neck level, initial encounter (principal); S00.03XA Contusion of scalp, initial encounter; M54.2 Cervicalgia; W10.2XXA Fall (on)(from) incline, initial encounter; Y93.01 Activity, walking, marching and hiking; J44.9 Chronic obstructive pulmonary disease, unspecified; I10 Essential (primary) hypertension; Z79.01 Long term (current) use of anticoagulants; Z79.899 Other long term (current) drug therapy
CPT/HCPCS: 70450; 72125; 99284; L0120

== ENCOUNTER 2020-03-16 00:58 | Inpatient (IN) | payer MEDICARE, OTHER ==
--- NOTE | 2020-03-16 01:32 | ERPHSYRPT ---
- History of Present Illness Time Seen by Provider: 03/16/20 01:27 Source: patient Exam Limitations: no limitations Physician History: 85 yo m w c/o massive swelling of legs increasing over two weeks. c/o of soa, weakness. Denies F,C,S. denies hx of CKD. Takes thyroid medication. Pt has been treated with both Bumex and Zaroxolyn but stopped Zaroxolyn because it made him dizzy. Timing/Duration: week(s) (2) Activities at Onset: none Severity of Pain-Max: none Severity of Pain-Current: none Modifying Factors: Improves With: nothing Nitro Today/Relief: no nitro taken today Aspirin Treatment Today: no aspirin today Associated Symptoms: shortness of breath, weakness, No nausea, No vomiting, No abdominal pain, No heartburn, No diaphoresis, No cough, No chills, No chest pain , No fever Allergies/Adverse Reactions: iodine Allergy (Severe, Verified 04/02/19 17:57) Difficulty Breathing shellfish derived Allergy (Severe, Verified 04/02/19 17:57) Difficulty Breathing Home Medications: Alprazolam 0.25 mg [xanAX 0.25 MG] 0.25 mg PO BIDPRN PRN 06/04/14 [History ] Bumetanide 1 mg [Bumex 1 mg] 1.5 mg PO BID 06/04/14 [History] Digoxin 0.125 mg Tablet [Lanoxin 0.125MG TABLET] 125 mcg PO DAILY [History] Metoprolol Succinate 50 mg [Toprol Xl 50 MG] 25 mg PO BID 06/04/14 [ History] Potassium Chloride [Klor-Con 10] 10 meq PO TID 06/04/14 [History] Acetaminophen 325 mg [Tylenol 325 mg] 650 mg PO Q4H PRN PRN 07/15/17 [ History] Albuterol Sulfate [Proair Hfa] 2 puffs PO QID 07/15/17 [History] Budesonide/Formoterol Fumarate [Symbicort 80-4.5 Mcg Inhaler] 2 puffs PO BID [History] Fluticasone Propionate [Flonase Allergy Relief] 1 spray IH DAILY PRN PRN [History] Levothyroxine Sodium 25 Mcg [Synthroid 25 Mcg] 50 mcg PO DAILY 11/11/17 [ History] Apixaban [Eliquis] 2.5 mg PO BID 04/02/19 [History] metOLazone [Metolazone] 5 mg PO BID 04/02/19 [History] Diclofenac Sodium/Misoprostol* [Arthrotec 50MG/200 mcg Tablet EC] 50 mg PO BID 03/16/20 [History] Magnesium Oxide 400 mg [Mag-Ox 400] 400 mg PO BID 03/16/20 [History] Montelukast Sodium 10 mg [Singulair 10 MG] 10 mg PO DAILY 03/16/20 [History] Hx Tetanus, Diphtheria Vaccination/Date Given: Yes Hx Influenza Vaccination/Date Given: Yes Hx Pneumococcal Vaccination/Date Given: Yes - Past Medical History Pertinent Past Medical History: Yes Neurological History: Peripheral Neuropathy ENT History: No Pertinent History Cardiac History: Congestive Heart Failure, Hypertension, Peripheral Vascular Disease, Other Respiratory History: CHF, COPD Endocrine Medical History: No Pertinent History Musculoskeletal History: Arthritis, Osteoarthritis, Other GI Medical History: No Pertinent History History: Other Psycho-Social History: No Pertinent History Male Reproductive Disorders: No Pertinent History Other Medical History: SPINAL STENOSIS. SLEEP APNEA. A-FIB. THR 2009 - Past Surgical History Past Surgical History: Yes Neuro Surgical History: No Pertinent History Cardiac: No Pertinent History Respiratory: No Pertinent History Gastrointestinal: No Pertinent History Genitourinary: No Pertinent History Musculoskeletal: Joint Replacement Male Surgical History: Prostate Surgery Other Surgical History: HIP 2009. TURP 1999. - Social History Smoking Status: Former smoker Exposure to second hand smoke: No Drug Use: none Patient Lives Alone: No - Nursing Vital Signs Nursing Vital Signs: Initial Vital Signs Temperature 97.5 F 03/16/20 01:05 Pulse Rate 78 03/16/20 01:05 Respiratory Rate 18 03/16/20 01:05 Blood Pressure 124/68 03/16/20 01:05 O2 Sat by Pulse Oximetry 96 03/16/20 01:05 Pain Scale Pain Intensity 0 - Physical Exam General Appearance: mild distress, alert Neck Exam: JVD (at 40 degrees) Respiratory Exam: crackles/rales Cardiovascular Exam: irregular, edema (pitting presacral edema 4+LE edema) Gastrointestinal/Abdomen Exam: soft, normal bowel sounds Male Genitalia Exam: other (scrotal edema) Back Exam: normal inspection, normal range of motion Extremity Exam: pedal edema, swelling Neurologic Exam: alert, oriented x 3, cooperative Lymphatic Exam: adenopathy SpO2 Interpretation: normal SpO2: 96 O2 Delivery: Room Air - Course Nursing assessment & vital signs reviewed: Yes EKG Interpreted by Me: RATE (66), A-fib, NORMAL AXIS, Right Bundle Branch Block , Non-specific ST Changes, Other (bigeminy) - Radiology Exams Chest X-ray Interpretation: Interpreted by me, Other (cardiomegaly) Ordered Tests: Active Orders 24 hr Category Date Time Status EKG-ER Only STAT Care 03/16/20 01:35 Active Mercedes [Catheter-[place] Mercedes] STAT Care 03/16/20 02:15 Active CHEST 1 VIEW (PORTABLE) Stat Exams 03/16/20 01:36 Taken AMYLASE Stat Lab 03/16/20 01:55 Completed BLOOD CULTURE Stat Lab 03/16/20 01:55 Received CBC W DIFF Stat Lab 03/16/20 01:55 Completed CMP Stat Lab 03/16/20 01:55 Completed D-DIMER QUANTITATIVE Stat Lab 03/16/20 01:55 Completed LIPASE Stat Lab 03/16/20 01:55 Completed Lactic Acid Stat Lab 03/16/20 02:37 Completed MAGNESIUM Stat Lab 03/16/20 01:55 Completed NT PRO BNP Stat Lab 03/16/20 01:55 Completed PROTIME WITH INR Stat Lab 03/16/20 01:55 Completed PTT Stat Lab 03/16/20 01:55 Completed TROPONIN Q3H Lab 03/16/20 02:15 Completed TROPONIN Q3H Lab 03/16/20 04:45 Ordered TROPONIN Q3H Lab 03/16/20 07:45 Ordered TROPONIN Q3H Lab 03/16/20 10:45 Ordered TROPONIN Q3H Lab 03/16/20 13:45 Ordered TSH [TSH, 3RD Generation] Stat Lab 03/16/20 02:15 Completed UA W/RFX UR CULTURE Stat Lab 03/16/20 02:15 Completed VBG [VENOUS BLOOD GAS] Stat Lab 03/16/20 02:37 Completed Medication Summary Discontinued Medications Generic Name Dose Route Start Last Admin Trade Name Freq PRN Reason Stop Dose Admin Furosemide 80 mg 03/16/20 01:35 03/16/20 01:55 Furosemide 100mg/10 Ml Vial IV 03/16/20 01:36 80 mg STAT ONE Administration Furosemide Confirm 03/16/20 01:45 Lasix 40 Mg/4 Ml Administered 03/16/20 01:46 Dose 80 mg .ROUTE .STK-MED ONE Furosemide Confirm 03/16/20 02:03 Furosemide 100mg/10 Ml Vial Administered 03/16/20 02:04 Dose 100 mg .ROUTE .K-[facility] ONE Lab/Rad Data: Laboratory Result Diagrams 03/16/20 01:55 03/16/20 01:55 Laboratory Results 03/16/20 03/16/20 03/16/20 Range/Units 02:37 02:37 02:15 WBC (4.0-10.5) K/mm3 RBC (4.1-5.6) M/mm3 Hgb (12.5-18.0) gm/dl Hct (42-50) % MCV (78-100) fl MCH (26-32) pg MCHC (32-36) g/dl RDW (11.5-14.0) % Plt Count (150-450) K/mm3 MPV (7.5-11.0) fl Gran % (36.0-66.0) % Eos # (Auto) (0-0.5) Absolute Lymphs (auto) (1.0-4.6) Absolute Monos (auto) (0.0-1.3) Lymphocytes % (24.0-44.0) % Monocytes % (0.0-12.0) % Eosinophils % (0.00-5.0) % Basophils % (0.0-0.4) % Absolute Granulocytes (1.4-6.9) Basophils # (0-0.4) PT (8.83-12.87) SECONDS INR (0.8-3.0) APTT (24.1-36.1) SECONDS D-Dimer (215-500) ng/mL pO2/FiO2 Ratio 21.0 % VBG pH 7.39 (7.32-7.42) VBG pCO2 at Pat Temp 46 (42-55) mm/Hg VBG pO2 at Pat Temp 36 (25-40) mm/Hg VBG HCO3 27.8 (22-28) meq/L VBG O2 Sat (Angelo) 61.9 L (95-100) VBG Base Excess 2.2 H (-2.0-2.0) VBG Hemoglobin 9.2 VBG Carboxyhemoglobin 3.1 (0.0-6.9) % T HGB POC Potassium 5.3 H (3.5-5.1) Sodium (137-145) mmol/L Potassium (3.5-5.1) mmol/L Chloride (98-107) mmol/L Carbon Dioxide (22-30) mmol/L Anion Gap (5-15) MEQ/L BUN (9-20) mg/dL Creatinine (0.66-1.25) mg/dL Estimated GFR ML/MIN Glucose (74-106) mg/dL Lactic Acid 1.7 (0.4-2.0) Calcium (8.4-10.2) mg/dL Magnesium (1.6-2.3) mg/dL Total Bilirubin (0.2-1.3) mg/dL AST (17-59) U/L ALT (0-50) U/L Alkaline Phosphatase (38-126) U/L Troponin I (0.000-0.034) ng/mL NT-Pro-B Natriuret Pep (0-1800) pg/mL Serum Total Protein (6.3-8.2) g/dL Albumin (3.5-5.0) g/dL Amylase (30-110) U/L Lipase (23-300) U/L TSH 3rd Generation (0.47-4.68) mIU/L Urine Color YELLOW (YELLOW) Urine Appearance CLEAR (CLEAR) Urine pH 6.0 (5-6) Ur Specific Ledbetter 1.009 (1.005-1.025) Urine Protein NEGATIVE (Negative) Urine Ketones NEGATIVE (NEGATIVE) Urine Blood NEGATIVE (0-5) Tyrel/ul Urine Nitrite NEGATIVE (NEGATIVE) Urine Bilirubin NEGATIVE (NEGATIVE) Urine Urobilinogen NEGATIVE (0-1) mg/dL Ur Leukocyte Esterase NEGATIVE (NEGATIVE) Urine WBC (Auto) NONE (0-5) /HPF Urine RBC (Auto) NONE (0-2) /HPF U Epithel Cells (Auto) NONE (FEW) /HPF Urine Bacteria (Auto) NONE (NEGATIVE) /HPF Urine Culture Reflexed NO (NO) Urine Glucose NEGATIVE (NEGATIVE) mg/dL Digoxin (0.8-1.9) ng/mL 03/16/20 03/16/20 03/16/20 Range/Units 02:15 02:15 02:15 WBC (4.0-10.5) K/mm3 RBC (4.1-5.6) M/mm3 Hgb (12.5-18.0) gm/dl Hct (42-50) % MCV (78-100) fl MCH (26-32) pg MCHC (32-36) g/dl RDW (11.5-14.0) % Plt Count (150-450) K/mm3 MPV (7.5-11.0) fl Gran % (36.0-66.0) % Eos # (Auto) (0-0.5) Absolute Lymphs (auto) (1.0-4.6) Absolute Monos (auto) (0.0-1.3) Lymphocytes % (24.0-44.0) % Monocytes % (0.0-12.0) % Eosinophils % (0.00-5.0) % Basophils % (0.0-0.4) % Absolute Granulocytes (1.4-6.9) Basophils # (0-0.4) PT (8.83-12.87) SECONDS INR (0.8-3.0) APTT (24.1-36.1) SECONDS D-Dimer (215-500) ng/mL pO2/FiO2 Ratio % VBG pH (7.32-7.42) VBG pCO2 at Pat Temp (42-55) mm/Hg VBG pO2 at Pat Temp (25-40) mm/Hg VBG HCO3 (22-28) meq/L VBG O2 Sat (Angelo) (95-100) VBG Base Excess (-2.0-2.0) VBG Hemoglobin VBG Carboxyhemoglobin (0.0-6.9) % T HGB POC Potassium (3.5-5.1) Sodium (137-145) mmol/L Potassium (3.5-5.1) mmol/L Chloride (98-107) mmol/L Carbon Dioxide (22-30) mmol/L Anion Gap (5-15) MEQ/L BUN (9-20) mg/dL Creatinine (0.66-1.25) mg/dL Estimated GFR ML/MIN Glucose (74-106) mg/dL Lactic Acid (0.4-2.0) Calcium (8.4-10.2) mg/dL Magnesium (1.6-2.3) mg/dL Total Bilirubin (0.2-1.3) mg/dL AST (17-59) U/L ALT (0-50) U/L Alkaline Phosphatase (38-126) U/L Troponin I 0.016 (0.000-0.034) ng/mL NT-Pro-B Natriuret Pep (0-1800) pg/mL Serum Total Protein (6.3-8.2) g/dL Albumin (3.5-5.0) g/dL Amylase (30-110) U/L Lipase (23-300) U/L TSH 3rd Generation 2.880 (0.47-4.68) mIU/L Urine Color (YELLOW) Urine Appearance (CLEAR) Urine pH (5-6) Ur Specific Ledbetter (1.005-1.025) Urine Protein (Negative) Urine Ketones (NEGATIVE) Urine Blood (0-5) Tyrel/ul Urine Nitrite (NEGATIVE) Urine Bilirubin (NEGATIVE) Urine Urobilinogen (0-1) mg/dL Ur Leukocyte Esterase (NEGATIVE) Urine WBC (Auto) (0-5) /HPF Urine RBC (Auto) (0-2) /HPF U Epithel Cells (Auto) (FEW) /HPF Urine Bacteria (Auto) (NEGATIVE) /HPF Urine Culture Reflexed (NO) Urine Glucose (NEGATIVE) mg/dL Digoxin 2.3 H* (0.8-1.9) ng/mL 03/16/20 03/16/20 03/16/20 Range/Units 01:55 01:55 01:55 WBC 8.4 (4.0-10.5) K/mm3 RBC 3.67 L (4.1-5.6) M/mm3 Hgb 11.2 L (12.5-18.0) gm/dl Hct 28.5 L (42-50) % MCV 77.7 L (78-100) fl MCH 30.5 (26-32) pg MCHC 39.3 H (32-36) g/dl RDW 21.0 H (11.5-14.0) % Plt Count 306 (150-450) K/mm3 MPV 11.0 (7.5-11.0) fl Gran % 66.9 H (36.0-66.0) % Eos # (Auto) 0.18 (0-0.5) Absolute Lymphs (auto) 1.44 (1.0-4.6) Absolute Monos (auto) 1.14 (0.0-1.3) Lymphocytes % 17.2 L (24.0-44.0) % Monocytes % 13.6 H (0.0-12.0) % Eosinophils % 2.1 (0.00-5.0) % Basophils % 0.2 (0.0-0.4) % Absolute Granulocytes 5.61 (1.4-6.9) Basophils # 0.02 (0-0.4) PT 16.7 H (8.83-12.87) SECONDS INR 1.47 (0.8-3.0) APTT 36.8 H (24.1-36.1) SECONDS D-Dimer 640 H* (215-500) ng/mL pO2/FiO2 Ratio % VBG pH (7.32-7.42) VBG pCO2 at Pat Temp (42-55) mm/Hg VBG pO2 at Pat Temp (25-40) mm/Hg VBG HCO3 (22-28) meq/L VBG O2 Sat (Angelo) (95-100) VBG Base Excess (-2.0-2.0) VBG Hemoglobin VBG Carboxyhemoglobin (0.0-6.9) % T HGB POC Potassium (3.5-5.1) Sodium 129 L (137-145) mmol/L Potassium 4.9 (3.5-5.1) mmol/L Chloride 91 L (98-107) mmol/L Carbon Dioxide 27 (22-30) mmol/L Anion Gap 14.9 (5-15) MEQ/L BUN 65 H (9-20) mg/dL Creatinine 1.61 H (0.66-1.25) mg/dL Estimated GFR 43.8 ML/MIN Glucose 120 H (74-106) mg/dL Lactic Acid (0.4-2.0) Calcium 8.8 (8.4-10.2) mg/dL Magnesium 2.0 (1.6-2.3) mg/dL Total Bilirubin 0.60 (0.2-1.3) mg/dL AST 34 (17-59) U/L ALT 19 (0-50) U/L Alkaline Phosphatase 174 H (38-126) U/L Troponin I (0.000-0.034) ng/mL NT-Pro-B Natriuret Pep 3730 H (0-1800) pg/mL Serum Total Protein 6.7 (6.3-8.2) g/dL Albumin 3.4 L (3.5-5.0) g/dL Amylase 80 (30-110) U/L Lipase 111 (23-300) U/L TSH 3rd Generation (0.47-4.68) mIU/L Urine Color (YELLOW) Urine Appearance (CLEAR) Urine pH (5-6) Ur Specific Ledbetter (1.005-1.025) Urine Protein (Negative) Urine Ketones (NEGATIVE) Urine Blood (0-5) Tyrel/ul Urine Nitrite (NEGATIVE) Urine Bilirubin (NEGATIVE) Urine Urobilinogen (0-1) mg/dL Ur Leukocyte Esterase (NEGATIVE) Urine WBC (Auto) (0-5) /HPF Urine RBC (Auto) (0-2) /HPF U Epithel Cells (Auto) (FEW) /HPF Urine Bacteria (Auto) (NEGATIVE) /HPF Urine Culture Reflexed (NO) Urine Glucose (NEGATIVE) mg/dL Digoxin (0.8-1.9) ng/mL - Progress Progress: improved Air Movement: good Blood Culture(s) Obtained: Yes Antibiotics given: No - Departure Departure Disposition: Observation Clinical Impression: Anasarca Condition: Fair Critical Care Time: No Referrals: VISHNU GARCIA MD [Primary Care Provider] - Instructions: Peripheral Edema -- Bilateral
[2020-03-16] MEDS ORDERED: Furosemide 100mg/10 ml Vial IV ONE (01:35)
[2020-03-16] MEDS ORDERED: Lasix 40 MG/4 ML ONE (01:45)
[2020-03-16] MEDS ORDERED: Furosemide 100mg/10 ml Vial ONE (02:03)
[2020-03-16 02:31] LABS: Absolute Neutrophil Ct (ANC) 5.61 (1.4-6.9); BASOPHIL % 0.2 % (0.0-0.4); Basophil (Absolute #) 0.02 (0-0.4); Eosinophil % 2.1 % (0.00-5.0); Eosinophil (Absolute #) 0.18 (0-0.5); Hematocrit 28.5 % (42-50); Hemoglobin 11.2 gm/dl (12.5-18.0); Lymphocyte (Absolute #) 1.44 (1.0-4.6); Lymphocytes % 17.2 % (24.0-44.0); Mean Cell Volume 77.7 fl (78-100); Mean Corpuscular Hemoglobin 30.5 pg (26-32); Mean Corpuscular Hgb Concent. 39.3 g/dl (32-36); Monocyte (Absolute #) 1.14 (0.0-1.3); Monocytes % 13.6 % (0.0-12.0); Neutrophil % 66.9 % (36.0-66.0); Platelet Count 306 K/mm3 (150-450); Red Blood Count 3.67 M/mm3 (4.1-5.6); White Blood Count 8.4 K/mm3 (4.0-10.5)
[2020-03-16 02:34] LABS: Appearance CLEAR (CLEAR); Bilirubin NEGATIVE (NEGATIVE); Blood NEGATIVE Ery/ul (0-5); Glucose NEGATIVE (NEGATIVE); Ketones NEGATIVE (NEGATIVE); Leukocyte Esterase NEGATIVE (NEGATIVE); Nitrite NEGATIVE (NEGATIVE); Protein,Urine Dip NEGATIVE (Negative); Specific Gravity 1.009 (1.005-1.025); Urobilinogen NEGATIVE mg/dL (0-1)
[2020-03-16 02:42] LABS: INR 1.47 (0.8-3.0); PROTIME 16.7 SECONDS (8.83-12.87)
[2020-03-16 02:43] LABS: PTT 36.8 SECONDS (24.1-36.1)
[2020-03-16 02:43] LABS: VBG BASE EXCESS 2.2 (-2.0-2.0); VBG CARBOXYHEMOGLOBIN 3.1 % T HGB (0.0-6.9); VBG HCO3- 27.8 meq/L (22-28); VBG HEMOGLOBIN 9.2; VBG O2 SATURATION 61.9 (95-100); VBG POTASSIUM 5.3 (3.5-5.1); VBG pH 7.39 (7.32-7.42)
[2020-03-16 02:55] LABS: ALBUMIN 3.4 g/dL (3.5-5.0); ANION GAP 14.9 MEQ/L (5-15); BILIRUBIN,TOTAL 0.6 mg/dL (0.2-1.3); Calcium 8.8 mg/dL (8.4-10.2); Creatinine 1 1.61 mg/dL (0.66-1.25); Potassium 4.9 mmol/L (3.5-5.1); Total Protein 6.7 g/dL (6.3-8.2)
[2020-03-16] MEDS ORDERED: Lasix 40 MG/4 ML IV SCH ×2 (04:15→14:00)
[2020-03-16] MEDS ORDERED: TYLENOL 325 MG PO STA (04:22)
[2020-03-16] MEDS ORDERED: TYLENOL 325 MG ONE (04:23)
[2020-03-16 04:41] LABS: Slide Review 1 YES
[2020-03-16 06:00] LABS: Hematocrit 26.8 % (42-50); Hemoglobin 8.4 gm/dl (12.5-18.0); Mean Cell Volume 77.7 fl (78-100); Mean Corpuscular Hemoglobin 24.3 pg (26-32); Mean Corpuscular Hgb Concent. 31.3 g/dl (32-36); Mean Platelet Volume 10.9 fl (7.5-11.0); Platelet Count 255 K/mm3 (150-450); Red Blood Count 3.45 M/mm3 (4.1-5.6); Red Cell Distribution Width 20.9 % (11.5-14.0); White Blood Count 6.9 K/mm3 (4.0-10.5)
[2020-03-16 06:15] LABS: ANION GAP 15.5 MEQ/L (5-15); Calcium 8.7 mg/dL (8.4-10.2); Creatinine 1 1.51 mg/dL (0.66-1.25); PREALBUMIN 14.43 mg/dL (17.6-36.0)
--- NOTE | 2020-03-16 08:02 | XRAY ---
Indication: Lower extremity edema. Comparison: July 15, 2017. Portable chest demonstrates new cardiomegaly and tiny bibasilar effusions favoring cardiac decompensation. Remaining chest demonstrates stable tiny calcified granulomas, osteopenia, and bony degenerative changes.
[2020-03-16] MEDS: Zestril 5 MG PO SCH (09:50)
[2020-03-16] MEDS ORDERED: TYLENOL 325 MG PO PRN (12:39)
[2020-03-16] MEDS ORDERED: xanAX 0.25 MG PO PRN (14:07)
[2020-03-16] MEDS ORDERED: NON-FORMULARY ITEM (Fluticasone Propionate [Flonase Allergy Relief] 1 SPRAY) IH PRN (14:07)
[2020-03-16] MEDS ORDERED: Flonase NASAL NS PRN (14:18)
[2020-03-16] MEDS: TYLENOL 325 MG PO PRN (14:31)
[2020-03-16] MEDS: SYNTHROID 50 MCG PO SCH (14:31)
[2020-03-16] MEDS: Singulair 10 MG PO SCH (14:31)
[2020-03-16] MEDS: Klor Con 10 MEQ PO SCH ×2 (14:31→21:13)
[2020-03-16] MEDS ORDERED: Sodium Chloride 0.9% 1000 ML 1,000 ML IV SCH (15:00)
[2020-03-16] MEDS ORDERED: Sodium Chloride 0.9% 1000 ML 1,000 ML ONE (15:03)
[2020-03-16] MEDS: VENTOLIN COMMON CANISTER IH SCH ×2 (15:12→20:15)
[2020-03-16 16:10] LABS: Hemoglobin 8.7 gm/dl (12.5-18.0)
--- NOTE | 2020-03-16 16:38 | PCM.NOTE ---
Date and Time: 03/16/201628 Subjective Assessment: Patient was admitted through ER with CHF,he has been fatigued and SOB progressively worse but not come to the doctor because of Covid. He has had blood in stool off and on but nurse noted blood on tissue when wiping after BM today. Hgb = 8.6 on admit. He agrees to transfusion. Objective Exam General Appearance: no apparent distress Neurologic Exam: alert, oriented x 3, cooperative, normal mood/affect Skin Exam: pale Eye Exam: PERRL, eyes nml inspection Ears, Nose, Throat Exam: normal ENT inspection Respiratory Exam: diminished breath sounds (bases), other (no dyspnea) Cardiovascular Exam: irregular Gastrointestinal/Abdomen Exam: soft, normal bowel sounds (nontender) Extremity Exam: other (3+/3 pitting edema from knees down calves are soft and nontender) Rectal Exam: blood, other (possible external hemorrhoids,nurse states BM earlier with red blood after) OBJECTIVE DATA Vital Signs: Vital Signs - 24 hr Temp Pulse Resp BP Pulse Ox 03/16/20 11:37 97.5 F 53 L 22 122/55 96 03/16/20 07:59 97.5 F 54 L 22 132/63 97 03/16/20 05:14 97.9 F 66 26 H 120/49 94 L 03/16/20 04:10 96 03/16/20 03:00 73 18 122/53 95 03/16/20 02:00 66 20 109/58 94 L 03/16/20 01:05 97.5 F 78 18 124/68 96 Pain Assessment - Last Documented Pain Intensity 3 Pain Scale Used 0-10 Pain Scale Intake and Output: Intake & Output 03/14/20 03/15/20 03/16/20 03/17/20 11:59 11:59 11:59 11:59 Intake Total 240 480 Output Total 3050 850 Balance -2810 -370 Weight 121.7 kg Lab Results: Lab Results-Last 24 Hours 03/16/20 03/16/20 03/16/20 Range/Units 01:55 01:55 01:55 WBC 8.4 (4.0-10.5) K/mm3 RBC 3.67 L (4.1-5.6) M/mm3 Hgb 11.2 L (12.5-18.0) gm/dl Hct 28.5 L (42-50) % MCV 77.7 L (78-100) fl MCH 30.5 (26-32) pg MCHC 39.3 H (32-36) g/dl RDW 21.0 H (11.5-14.0) % Plt Count 306 (150-450) K/mm3 MPV 11.0 (7.5-11.0) fl Gran % 66.9 H (36.0-66.0) % Eos # (Auto) 0.18 (0-0.5) Absolute Lymphs (auto) 1.44 (1.0-4.6) Absolute Monos (auto) 1.14 (0.0-1.3) Lymphocytes % 17.2 L (24.0-44.0) % Monocytes % 13.6 H (0.0-12.0) % Eosinophils % 2.1 (0.00-5.0) % Basophils % 0.2 (0.0-0.4) % Absolute Granulocytes 5.61 (1.4-6.9) Basophils # 0.02 (0-0.4) PT 16.7 H (8.83-12.87) SECONDS INR 1.47 (0.8-3.0) APTT 36.8 H (24.1-36.1) SECONDS D-Dimer 640 H* (215-500) ng/mL pO2/FiO2 Ratio % VBG pH (7.32-7.42) VBG pCO2 at Pat Temp (42-55) mm/Hg VBG pO2 at Pat Temp (25-40) mm/Hg VBG HCO3 (22-28) meq/L VBG O2 Sat (Angelo) (95-100) VBG Base Excess (-2.0-2.0) VBG Hemoglobin VBG Carboxyhemoglobin (0.0-6.9) % T HGB POC Potassium (3.5-5.1) Sodium 129 L (137-145) mmol/L Potassium 4.9 (3.5-5.1) mmol/L Chloride 91 L (98-107) mmol/L Carbon Dioxide 27 (22-30) mmol/L Anion Gap 14.9 (5-15) MEQ/L BUN 65 H (9-20) mg/dL Creatinine 1.61 H (0.66-1.25) mg/dL Estimated GFR 43.8 ML/MIN Glucose 120 H (74-106) mg/dL Lactic Acid (0.4-2.0) Calcium 8.8 (8.4-10.2) mg/dL Magnesium 2.0 (1.6-2.3) mg/dL Total Bilirubin 0.60 (0.2-1.3) mg/dL AST 34 (17-59) U/L ALT 19 (0-50) U/L Alkaline Phosphatase 174 H (38-126) U/L Troponin I (0.000-0.034) ng/mL NT-Pro-B Natriuret Pep 3730 H (0-1800) pg/mL Serum Total Protein 6.7 (6.3-8.2) g/dL Albumin 3.4 L (3.5-5.0) g/dL Prealbumin (17.6-36.0) mg/dL Amylase 80 (30-110) U/L Lipase 111 (23-300) U/L TSH 3rd Generation (0.47-4.68) mIU/L Urine Color (YELLOW) Urine Appearance (CLEAR) Urine pH (5-6) Ur Specific Portia (1.005-1.025) Urine Protein (Negative) Urine Ketones (NEGATIVE) Urine Blood (0-5) Tyrel/ul Urine Nitrite (NEGATIVE) Urine Bilirubin (NEGATIVE) Urine Urobilinogen (0-1) mg/dL Ur Leukocyte Esterase (NEGATIVE) Urine WBC (Auto) (0-5) /HPF Urine RBC (Auto) (0-2) /HPF U Epithel Cells (Auto) (FEW) /HPF Urine Bacteria (Auto) (NEGATIVE) /HPF Urine Culture Reflexed (NO) Urine Glucose (NEGATIVE) mg/dL Digoxin (0.8-1.9) ng/mL Slides for Path Review YES 03/16/20 03/16/20 03/16/20 Range/Units 02:15 02:15 02:15 WBC (4.0-10.5) K/mm3 RBC (4.1-5.6) M/mm3 Hgb (12.5-18.0) gm/dl Hct (42-50) % MCV (78-100) fl MCH (26-32) pg MCHC (32-36) g/dl RDW (11.5-14.0) % Plt Count (150-450) K/mm3 MPV (7.5-11.0) fl Gran % (36.0-66.0) % Eos # (Auto) (0-0.5) Absolute Lymphs (auto) (1.0-4.6) Absolute Monos (auto) (0.0-1.3) Lymphocytes % (24.0-44.0) % Monocytes % (0.0-12.0) % Eosinophils % (0.00-5.0) % Basophils % (0.0-0.4) % Absolute Granulocytes (1.4-6.9) Basophils # (0-0.4) PT (8.83-12.87) SECONDS INR (0.8-3.0) APTT (24.1-36.1) SECONDS D-Dimer (215-500) ng/mL pO2/FiO2 Ratio % VBG pH (7.32-7.42) VBG pCO2 at Pat Temp (42-55) mm/Hg VBG pO2 at Pat Temp (25-40) mm/Hg VBG HCO3 (22-28) meq/L VBG O2 Sat (Angelo) (95-100) VBG Base Excess (-2.0-2.0) VBG Hemoglobin VBG Carboxyhemoglobin (0.0-6.9) % T HGB POC Potassium (3.5-5.1) Sodium (137-145) mmol/L Potassium (3.5-5.1) mmol/L Chloride (98-107) mmol/L Carbon Dioxide (22-30) mmol/L Anion Gap (5-15) MEQ/L BUN (9-20) mg/dL Creatinine (0.66-1.25) mg/dL Estimated GFR ML/MIN Glucose (74-106) mg/dL Lactic Acid (0.4-2.0) Calcium (8.4-10.2) mg/dL Magnesium (1.6-2.3) mg/dL Total Bilirubin (0.2-1.3) mg/dL AST (17-59) U/L ALT (0-50) U/L Alkaline Phosphatase (38-126) U/L Troponin I 0.016 (0.000-0.034) ng/mL NT-Pro-B Natriuret Pep (0-1800) pg/mL Serum Total Protein (6.3-8.2) g/dL Albumin (3.5-5.0) g/dL Prealbumin (17.6-36.0) mg/dL Amylase (30-110) U/L Lipase (23-300) U/L TSH 3rd Generation 2.880 (0.47-4.68) mIU/L Urine Color (YELLOW) Urine Appearance (CLEAR) Urine pH (5-6) Ur Specific Portia (1.005-1.025) Urine Protein (Negative) Urine Ketones (NEGATIVE) Urine Blood (0-5) Tyrel/ul Urine Nitrite (NEGATIVE) Urine Bilirubin (NEGATIVE) Urine Urobilinogen (0-1) mg/dL Ur Leukocyte Esterase (NEGATIVE) Urine WBC (Auto) (0-5) /HPF Urine RBC (Auto) (0-2) /HPF U Epithel Cells (Auto) (FEW) /HPF Urine Bacteria (Auto) (NEGATIVE) /HPF Urine Culture Reflexed (NO) Urine Glucose (NEGATIVE) mg/dL Digoxin 2.3 H* (0.8-1.9) ng/mL Slides for Path Review 03/16/20 03/16/20 03/16/20 Range/Units 02:15 02:37 02:37 WBC (4.0-10.5) K/mm3 RBC (4.1-5.6) M/mm3 Hgb (12.5-18.0) gm/dl Hct (42-50) % MCV (78-100) fl MCH (26-32) pg MCHC (32-36) g/dl RDW (11.5-14.0) % Plt Count (150-450) K/mm3 MPV (7.5-11.0) fl Gran % (36.0-66.0) % Eos # (Auto) (0-0.5) Absolute Lymphs (auto) (1.0-4.6) Absolute Monos (auto) (0.0-1.3) Lymphocytes % (24.0-44.0) % Monocytes % (0.0-12.0) % Eosinophils % (0.00-5.0) % Basophils % (0.0-0.4) % Absolute Granulocytes (1.4-6.9) Basophils # (0-0.4) PT (8.83-12.87) SECONDS INR (0.8-3.0) APTT (24.1-36.1) SECONDS D-Dimer (215-500) ng/mL pO2/FiO2 Ratio 21.0 % VBG pH 7.39 (7.32-7.42) VBG pCO2 at Pat Temp 46 (42-55) mm/Hg VBG pO2 at Pat Temp 36 (25-40) mm/Hg VBG HCO3 27.8 (22-28) meq/L VBG O2 Sat (Angelo) 61.9 L (95-100) VBG Base Excess 2.2 H (-2.0-2.0) VBG Hemoglobin 9.2 VBG Carboxyhemoglobin 3.1 (0.0-6.9) % T HGB POC Potassium 5.3 H (3.5-5.1) Sodium (137-145) mmol/L Potassium (3.5-5.1) mmol/L Chloride (98-107) mmol/L Carbon Dioxide (22-30) mmol/L Anion Gap (5-15) MEQ/L BUN (9-20) mg/dL Creatinine (0.66-1.25) mg/dL Estimated GFR ML/MIN Glucose (74-106) mg/dL Lactic Acid 1.7 (0.4-2.0) Calcium (8.4-10.2) mg/dL Magnesium (1.6-2.3) mg/dL Total Bilirubin (0.2-1.3) mg/dL AST (17-59) U/L ALT (0-50) U/L Alkaline Phosphatase (38-126) U/L Troponin I (0.000-0.034) ng/mL NT-Pro-B Natriuret Pep (0-1800) pg/mL Serum Total Protein (6.3-8.2) g/dL Albumin (3.5-5.0) g/dL Prealbumin (17.6-36.0) mg/dL Amylase (30-110) U/L Lipase (23-300) U/L TSH 3rd Generation (0.47-4.68) mIU/L Urine Color YELLOW (YELLOW) Urine Appearance CLEAR (CLEAR) Urine pH 6.0 (5-6) Ur Specific Portia 1.009 (1.005-1.025) Urine Protein NEGATIVE (Negative) Urine Ketones NEGATIVE (NEGATIVE) Urine Blood NEGATIVE (0-5) Tyrel/ul Urine Nitrite NEGATIVE (NEGATIVE) Urine Bilirubin NEGATIVE (NEGATIVE) Urine Urobilinogen NEGATIVE (0-1) mg/dL Ur Leukocyte Esterase NEGATIVE (NEGATIVE) Urine WBC (Auto) NONE (0-5) /HPF Urine RBC (Auto) NONE (0-2) /HPF U Epithel Cells (Auto) NONE (FEW) /HPF Urine Bacteria (Auto) NONE (NEGATIVE) /HPF Urine Culture Reflexed NO (NO) Urine Glucose NEGATIVE (NEGATIVE) mg/dL Digoxin (0.8-1.9) ng/mL Slides for Path Review 03/16/20 03/16/20 03/16/20 Range/Units 05:30 05:30 05:30 WBC 6.9 (4.0-10.5) K/mm3 RBC 3.45 L (4.1-5.6) M/mm3 Hgb 8.4 L D (12.5-18.0) gm/dl Hct 26.8 L (42-50) % MCV 77.7 L (78-100) fl MCH 24.3 L (26-32) pg MCHC 31.3 L (32-36) g/dl RDW 20.9 H (11.5-14.0) % Plt Count 255 (150-450) K/mm3 MPV 10.9 (7.5-11.0) fl Gran % (36.0-66.0) % Eos # (Auto) (0-0.5) Absolute Lymphs (auto) (1.0-4.6) Absolute Monos (auto) (0.0-1.3) Lymphocytes % (24.0-44.0) % Monocytes % (0.0-12.0) % Eosinophils % (0.00-5.0) % Basophils % (0.0-0.4) % Absolute Granulocytes (1.4-6.9) Basophils # (0-0.4) PT (8.83-12.87) SECONDS INR (0.8-3.0) APTT (24.1-36.1) SECONDS D-Dimer (215-500) ng/mL pO2/FiO2 Ratio % VBG pH (7.32-7.42) VBG pCO2 at Pat Temp (42-55) mm/Hg VBG pO2 at Pat Temp (25-40) mm/Hg VBG HCO3 (22-28) meq/L VBG O2 Sat (Angelo) (95-100) VBG Base Excess (-2.0-2.0) VBG Hemoglobin VBG Carboxyhemoglobin (0.0-6.9) % T HGB POC Potassium (3.5-5.1) Sodium 129 L (137-145) mmol/L Potassium 5.0 (3.5-5.1) mmol/L Chloride 92 L (98-107) mmol/L Carbon Dioxide 26 (22-30) mmol/L Anion Gap 15.5 H (5-15) MEQ/L BUN 69 H (9-20) mg/dL Creatinine 1.51 H (0.66-1.25) mg/dL Estimated GFR 47.1 ML/MIN Glucose 114 H (74-106) mg/dL Lactic Acid (0.4-2.0) Calcium 8.7 (8.4-10.2) mg/dL Magnesium (1.6-2.3) mg/dL Total Bilirubin (0.2-1.3) mg/dL AST (17-59) U/L ALT (0-50) U/L Alkaline Phosphatase (38-126) U/L Troponin I 0.015 (0.000-0.034) ng/mL NT-Pro-B Natriuret Pep (0-1800) pg/mL Serum Total Protein (6.3-8.2) g/dL Albumin (3.5-5.0) g/dL Prealbumin 14.43 L (17.6-36.0) mg/dL Amylase (30-110) U/L Lipase (23-300) U/L TSH 3rd Generation (0.47-4.68) mIU/L Urine Color (YELLOW) Urine Appearance (CLEAR) Urine pH (5-6) Ur Specific Portia (1.005-1.025) Urine Protein (Negative) Urine Ketones (NEGATIVE) Urine Blood (0-5) Tyrel/ul Urine Nitrite (NEGATIVE) Urine Bilirubin (NEGATIVE) Urine Urobilinogen (0-1) mg/dL Ur Leukocyte Esterase (NEGATIVE) Urine WBC (Auto) (0-5) /HPF Urine RBC (Auto) (0-2) /HPF U Epithel Cells (Auto) (FEW) /HPF Urine Bacteria (Auto) (NEGATIVE) /HPF Urine Culture Reflexed (NO) Urine Glucose (NEGATIVE) mg/dL Digoxin (0.8-1.9) ng/mL Slides for Path Review 03/16/20 03/16/20 03/16/20 Range/Units 07:40 07:40 10:40 WBC (4.0-10.5) K/mm3 RBC (4.1-5.6) M/mm3 Hgb 8.5 L (12.5-18.0) gm/dl Hct (42-50) % MCV (78-100) fl MCH (26-32) pg MCHC (32-36) g/dl RDW (11.5-14.0) % Plt Count (150-450) K/mm3 MPV (7.5-11.0) fl Gran % (36.0-66.0) % Eos # (Auto) (0-0.5) Absolute Lymphs (auto) (1.0-4.6) Absolute Monos (auto) (0.0-1.3) Lymphocytes % (24.0-44.0) % Monocytes % (0.0-12.0) % Eosinophils % (0.00-5.0) % Basophils % (0.0-0.4) % Absolute Granulocytes (1.4-6.9) Basophils # (0-0.4) PT (8.83-12.87) SECONDS INR (0.8-3.0) APTT (24.1-36.1) SECONDS D-Dimer (215-500) ng/mL pO2/FiO2 Ratio % VBG pH (7.32-7.42) VBG pCO2 at Pat Temp (42-55) mm/Hg VBG pO2 at Pat Temp (25-40) mm/Hg VBG HCO3 (22-28) meq/L VBG O2 Sat (Angelo) (95-100) VBG Base Excess (-2.0-2.0) VBG Hemoglobin VBG Carboxyhemoglobin (0.0-6.9) % T HGB POC Potassium (3.5-5.1) Sodium (137-145) mmol/L Potassium (3.5-5.1) mmol/L Chloride (98-107) mmol/L Carbon Dioxide (22-30) mmol/L Anion Gap (5-15) MEQ/L BUN (9-20) mg/dL Creatinine (0.66-1.25) mg/dL Estimated GFR ML/MIN Glucose (74-106) mg/dL Lactic Acid (0.4-2.0) Calcium (8.4-10.2) mg/dL Magnesium (1.6-2.3) mg/dL Total Bilirubin (0.2-1.3) mg/dL AST (17-59) U/L ALT (0-50) U/L Alkaline Phosphatase (38-126) U/L Troponin I 0.020 0.016 (0.000-0.034) ng/mL NT-Pro-B Natriuret Pep (0-1800) pg/mL Serum Total Protein (6.3-8.2) g/dL Albumin (3.5-5.0) g/dL Prealbumin (17.6-36.0) mg/dL Amylase (30-110) U/L Lipase (23-300) U/L TSH 3rd Generation (0.47-4.68) mIU/L Urine Color (YELLOW) Urine Appearance (CLEAR) Urine pH (5-6) Ur Specific Portia (1.005-1.025) Urine Protein (Negative) Urine Ketones (NEGATIVE) Urine Blood (0-5) Tyrel/ul Urine Nitrite (NEGATIVE) Urine Bilirubin (NEGATIVE) Urine Urobilinogen (0-1) mg/dL Ur Leukocyte Esterase (NEGATIVE) Urine WBC (Auto) (0-5) /HPF Urine RBC (Auto) (0-2) /HPF U Epithel Cells (Auto) (FEW) /HPF Urine Bacteria (Auto) (NEGATIVE) /HPF Urine Culture Reflexed (NO) Urine Glucose (NEGATIVE) mg/dL Digoxin (0.8-1.9) ng/mL Slides for Path Review 03/16/20 03/16/20 Range/Units 13:40 15:45 WBC (4.0-10.5) K/mm3 RBC (4.1-5.6) M/mm3 Hgb 8.7 L (12.5-18.0) gm/dl Hct 28.0 L (42-50) % MCV (78-100) fl MCH (26-32) pg MCHC (32-36) g/dl RDW (11.5-14.0) % Plt Count (150-450) K/mm3 MPV (7.5-11.0) fl Gran % (36.0-66.0) % Eos # (Auto) (0-0.5) Absolute Lymphs (auto) (1.0-4.6) Absolute Monos (auto) (0.0-1.3) Lymphocytes % (24.0-44.0) % Monocytes % (0.0-12.0) % Eosinophils % (0.00-5.0) % Basophils % (0.0-0.4) % Absolute Granulocytes (1.4-6.9) Basophils # (0-0.4) PT (8.83-12.87) SECONDS INR (0.8-3.0) APTT (24.1-36.1) SECONDS D-Dimer (215-500) ng/mL pO2/FiO2 Ratio % VBG pH (7.32-7.42) VBG pCO2 at Pat Temp (42-55) mm/Hg VBG pO2 at Pat Temp (25-40) mm/Hg VBG HCO3 (22-28) meq/L VBG O2 Sat (Angelo) (95-100) VBG Base Excess (-2.0-2.0) VBG Hemoglobin VBG Carboxyhemoglobin (0.0-6.9) % T HGB POC Potassium (3.5-5.1) Sodium (137-145) mmol/L Potassium (3.5-5.1) mmol/L Chloride (98-107) mmol/L Carbon Dioxide (22-30) mmol/L Anion Gap (5-15) MEQ/L BUN (9-20) mg/dL Creatinine (0.66-1.25) mg/dL Estimated GFR ML/MIN Glucose (74-106) mg/dL Lactic Acid (0.4-2.0) Calcium (8.4-10.2) mg/dL Magnesium (1.6-2.3) mg/dL Total Bilirubin (0.2-1.3) mg/dL AST (17-59) U/L ALT (0-50) U/L Alkaline Phosphatase (38-126) U/L Troponin I 0.015 (0.000-0.034) ng/mL NT-Pro-B Natriuret Pep (0-1800) pg/mL Serum Total Protein (6.3-8.2) g/dL Albumin (3.5-5.0) g/dL Prealbumin (17.6-36.0) mg/dL Amylase (30-110) U/L Lipase (23-300) U/L TSH 3rd Generation (0.47-4.68) mIU/L Urine Color (YELLOW) Urine Appearance (CLEAR) Urine pH (5-6) Ur Specific Portia (1.005-1.025) Urine Protein (Negative) Urine Ketones (NEGATIVE) Urine Blood (0-5) Tyrel/ul Urine Nitrite (NEGATIVE) Urine Bilirubin (NEGATIVE) Urine Urobilinogen (0-1) mg/dL Ur Leukocyte Esterase (NEGATIVE) Urine WBC (Auto) (0-5) /HPF Urine RBC (Auto) (0-2) /HPF U Epithel Cells (Auto) (FEW) /HPF Urine Bacteria (Auto) (NEGATIVE) /HPF Urine Culture Reflexed (NO) Urine Glucose (NEGATIVE) mg/dL Digoxin (0.8-1.9) ng/mL Slides for Path Review Radiology Exams: Radiology Procedures Category Date Time Status CHEST 1 VIEW (PORTABLE) IN AM Exams 03/17/20 06:00 Ordered CHEST 1 VIEW (PORTABLE) Stat Exams 03/16/20 01:36 Completed Assessment/Plan (1) Acute CHF (congestive heart failure) Current Visit: Yes Status: Acute Assessment & Plan: exacerbation Code(s): I50.9 - HEART FAILURE, UNSPECIFIED (2) Edema due to congestive heart failure Current Visit: Yes Status: Chronic Assessment & Plan: improving with IV lasix Code(s): I50.9 - HEART FAILURE, UNSPECIFIED (3) Lower GI bleed Current Visit: Yes Status: Acute Assessment & Plan: bright red blood after BM, x 3 -stable at present, trransfuse 1 unit PRBC then reeval,Consult gen surg Code(s): K92.2 - GASTROINTESTINAL HEMORRHAGE, UNSPECIFIED (4) Sleep apnea in adult Current Visit: No Status: Chronic Code(s): G47.33 - OBSTRUCTIVE SLEEP APNEA (ADULT) (PEDIATRIC) (5) Elevated d-dimer Current Visit: Yes Status: Acute Assessment & Plan: neg PE Code(s): R79.89 - OTHER SPECIFIED ABNORMAL FINDINGS OF BLOOD CHEMISTRY (6) Hyponatremia Current Visit: Yes Status: Acute Assessment & Plan: IV NS low rate during Lasix for diuresis,monitor Code(s): E87.1 - HYPO-OSMOLALITY AND HYPONATREMIA
[2020-03-16] MEDS: Zaroxolyn 2.5 MG PO SCH (16:53)
[2020-03-16 18:21] LABS: ABO TYPING O; Antibody Screen NEGATIVE (NEGATIVE); RH TYPING POSITIVE
[2020-03-16 18:24] LABS: CROSS MATCH (PRBC) COMPATIBLE (COMPATIBLE)
[2020-03-16] MEDS: Advair Hfa 115/21 Common canister IH SCH (20:15)
[2020-03-16] MEDS: BUMEX 1 MG PO SCH (21:11)
[2020-03-16] MEDS: MAG-OX 400 PO SCH (21:13)
[2020-03-16] MEDS: ARTHROTEC PO SCH (21:13)
[2020-03-16] MEDS: Toprol-Xl 25MG Tablets PO SCH (21:13)
[2020-03-16] MEDS: ELIQUIS 2.5 MG TABLET PO SCH (21:13)
[2020-03-16] MEDS ORDERED: Lasix 40 MG/4 ML IV PRN (21:21)
[2020-03-16] MEDS ORDERED: NON-FORMULARY ITEM (Budesonide/Formoterol Fumarate [Symbicort 80-4.5 Mcg Inhaler] 2 PUFFS) PO SCH (22:00)
[2020-03-16 23:28] LABS: Hematocrit 29.4 % (42-50); Hemoglobin 9.3 gm/dl (12.5-18.0)
[2020-03-17 05:02] LABS: Hematocrit 28.5 % (42-50); Mean Cell Volume 77.7 fl (78-100); Mean Corpuscular Hemoglobin 24.5 pg (26-32); Mean Corpuscular Hgb Concent. 31.6 g/dl (32-36); Mean Platelet Volume 11.1 fl (7.5-11.0); Platelet Count 254 K/mm3 (150-450); Red Blood Count 3.67 M/mm3 (4.1-5.6); Red Cell Distribution Width 20.7 % (11.5-14.0); White Blood Count 5.8 K/mm3 (4.0-10.5)
[2020-03-17 05:24] LABS: Calcium 8.7 mg/dL (8.4-10.2); Creatinine 1 1.54 mg/dL (0.66-1.25)
[2020-03-17] MEDS: VENTOLIN COMMON CANISTER IH SCH ×4 (07:16→20:15)
[2020-03-17] MEDS: Advair Hfa 115/21 Common canister IH SCH ×2 (07:17→20:15)
--- NOTE | 2020-03-17 08:09 | XRAY ---
Indication: Follow-up CHF. Comparison: One day earlier. Portable apical lordotic chest unchanged again demonstrating cardiomegaly and tiny bibasilar effusions favoring cardiac decompensation. No new cardiopulmonary abnormalities. Comment: Preliminary interpretation was made by [facility]. No critical discrepancy.
--- NOTE | 2020-03-17 10:06 | PCM.HP ---
History of Present Illness - Chief Complaint Chief Complaint: Dig Toxicity History of Present Illness: is a 85 year old male with chronic illness who presented to ER with progressive increase in shortness of breath and swelling in legs. Patient states because of Covid pandemic he has not been to see his PCP(Dr Wylie)or [facility](Dr Ayala) even though feel progressively worse. PMHx includes HTN, CHF,Afib on nursing home current anticoagulant and digoxin,renal inufficiency,sleep apnea, asthma/remote hx smoking,S/P TURP. - Review of Systems Constitutional: Weakness (fatigue), Other (no fever no chills) Eyes: No Symptoms Ears, Nose, & Throat: Other (denies sore throat or nasal congestion) Respiratory: Short Of Breath (has beed inactive because of sob on exertion) Cardiac: Edema, Other (denies chest pain or palpitations) Abdominal/Gastrointestinal: Hematochezia, Other (denies N/V/D denies abd pain, has good appetite) Genitourinary Symptoms: Other (denies dysuria or hematuria) Musculoskeletal: Arthralgias, Myalgias Skin: Other (red skin around right knee had been treated for cellulitis before admissionn) Neurological: Other (no focal weakness) Psychological: No Symptoms Endocrine: Other (no Hx diabetes,has hypothyroid) Hematologic/Lymphatic: Other (anticoag tx for years) Medications & Allergies Home Medications: Home Medication List Alprazolam 0.25 mg [xanAX 0.25 MG] 0.25 mg PO BIDPRN PRN 06/04/14 [ History Confirmed 03/16/20] Bumetanide 1 mg [Bumex 1 mg] 1.5 mg PO BID 06/04/14 [History Confirmed ] Digoxin 0.125 mg Tablet [Lanoxin 0.125MG TABLET] 125 mcg PO DAILY [History Confirmed 03/16/20] Metoprolol Succinate 50 mg [Toprol Xl 50 MG] 25 mg PO BID 06/04/14 [ History Confirmed 03/16/20] Potassium Chloride [Klor-Con 10] 10 meq PO TID 06/04/14 [History Confirmed 03/16] Acetaminophen 325 mg [Tylenol 325 mg] 650 mg PO Q4H PRN PRN 07/15/17 [ History Confirmed 03/16/20] Albuterol Sulfate [Proair Hfa] 2 puffs PO QID 07/15/17 [History Confirmed ] Budesonide/Formoterol Fumarate [Symbicort 80-4.5 Mcg Inhaler] 2 puffs PO BID [History Confirmed 03/16/20] Fluticasone Propionate [Flonase Allergy Relief] 1 spray IH DAILY PRN PRN [History Confirmed 03/16/20] Levothyroxine Sodium 25 Mcg [Synthroid 25 Mcg] 50 mcg PO DAILY 11/11/17 [ History Confirmed 03/16/20] Apixaban [Eliquis] 2.5 mg PO BID 04/02/19 [History Confirmed 03/16/20] metOLazone [Metolazone] 5 mg PO BID 04/02/19 [History Confirmed 03/16/20] Diclofenac Sodium/Misoprostol* [Arthrotec 50MG/200 mcg Tablet EC] 50 mg PO BID 03/16/20 [History Confirmed 03/16/20] Magnesium Oxide 400 mg [Mag-Ox 400] 400 mg PO BID 03/16/20 [History Confirmed 03/16/20] Montelukast Sodium 10 mg [Singulair 10 MG] 10 mg PO DAILY 03/16/20 [History Confirmed 03/16/20] Cyclosporine [Restasis] 1 each OP BID 03/19/20 [History Confirmed 03/19/20] Allergies/Adverse Reactions: Allergies Allergy/AdvReac Type Severity Reaction Status Date / Time iodine Allergy Severe Difficulty Verified 04/02/19 17:57 Breathing shellfish derived Allergy Severe Difficulty Verified 04/02/19 17:57 Breathing - Past Medical History Past Medical History: Yes Neurological History: Peripheral Neuropathy ENT History: No Pertinent History Cardiac History: Congestive Heart Failure, Hypertension, Peripheral Vascular Disease, Other Respiratory History: CHF, COPD Endocrine Medical History: No Pertinent History Musculoskelatal History: Arthritis, Osteoarthritis, Other GI Medical History: No Pertinent History History: Other Pyscho-Social History: No Pertinent History Male Reproductive Disorders: No Pertinent History Comment: SPINAL STENOSIS. SLEEP APNEA. A-FIB. THR 2009 - Past Surgical History Past Surgical History: Yes Neuro Surgical History: No Pertinent History Cardiac History: No Pertinent History Respiratory Surgery: No Pertinent History GI Surgical History: No Pertinent History Genitourinary Surgical Hx: No Pertinent History Musculskeletal Surgical Hx: Joint Replacement Male Surgical History: Prostate Surgery Other Surgical History: HIP 2009. TURP 1999. - Social History Smoking Status: Former smoker Exposure to second hand smoke: No Alcohol: None Drug Use: none - Physical Exam Vital Signs: Vital Signs - 24 hr Temp Pulse Resp BP Pulse Ox 03/17/20 07:34 97.8 F 63 16 129/45 94 L 03/17/20 07:23 92 H 14 92 L 03/17/20 04:05 98.2 F 61 16 113/43 95 03/16/20 23:47 97.5 F 53 L 17 126/54 99 03/16/20 20:15 90 27 H 97 03/16/20 20:02 97.6 F 71 20 112/40 99 03/16/20 16:52 54 L 20 95 03/16/20 16:00 97.9 F 58 L 17 125/48 98 03/16/20 11:37 97.5 F 53 L 22 122/55 96 General Appearance: no apparent distress, alert, obese, other (seated in recliner with legs elevated voices fatigue) Neurologic Exam: alert, oriented x 3, cooperative, transmission assembler II-XII nml as tested, normal mood/affect, other (no focal weakness) Eye Exam: PERRL/EOMI, eyes nml inspection, other (non icteric) Ears, Nose, Throat Exam: normal ENT inspection, moist mucous membranes Neck Exam: JVD (I do not appreciate a murmur), other (thyroid palpable,nontender ) Respiratory Exam: diminished breath sounds, crackles/rales (bases) Cardiovascular Exam: irregular, edema (3+/4 pitting knee down improved from admission) Gastrointestinal/Abdomen Exam: soft, normal bowel sounds (nontender) Male Genitalia Exam: other (scrotal edema per ER ,S/P Turp) Rectal Exam: other (reported bright red blood folowing BM and on tissue) Results - Labs Lab/Micro Results: Lab Results-Last 24 Hours 03/16/20 03/16/20 03/16/20 Range/Units 10:40 13:40 15:45 WBC (4.0-10.5) K/mm3 RBC (4.1-5.6) M/mm3 Hgb 8.7 L (12.5-18.0) gm/dl Hct 28.0 L (42-50) % MCV (78-100) fl MCH (26-32) pg MCHC (32-36) g/dl RDW (11.5-14.0) % Plt Count (150-450) K/mm3 MPV (7.5-11.0) fl Sodium (137-145) mmol/L Potassium (3.5-5.1) mmol/L Chloride (98-107) mmol/L Carbon Dioxide (22-30) mmol/L Anion Gap (5-15) MEQ/L BUN (9-20) mg/dL Creatinine (0.66-1.25) mg/dL Estimated GFR ML/MIN Glucose (74-106) mg/dL Calcium (8.4-10.2) mg/dL Troponin I 0.016 0.015 (0.000-0.034) ng/mL NT-Pro-B Natriuret Pep (0-1800) pg/mL Digoxin (0.8-1.9) ng/mL ABO Group Rh Factor Antibody Screen (NEGATIVE) Crossmatch (COMPATIBLE) 03/16/20 03/16/20 03/16/20 Range/Units 15:45 15:45 23:15 WBC (4.0-10.5) K/mm3 RBC (4.1-5.6) M/mm3 Hgb 9.3 L (12.5-18.0) gm/dl Hct 29.4 L (42-50) % MCV (78-100) fl MCH (26-32) pg MCHC (32-36) g/dl RDW (11.5-14.0) % Plt Count (150-450) K/mm3 MPV (7.5-11.0) fl Sodium (137-145) mmol/L Potassium (3.5-5.1) mmol/L Chloride (98-107) mmol/L Carbon Dioxide (22-30) mmol/L Anion Gap (5-15) MEQ/L BUN (9-20) mg/dL Creatinine (0.66-1.25) mg/dL Estimated GFR ML/MIN Glucose (74-106) mg/dL Calcium (8.4-10.2) mg/dL Troponin I (0.000-0.034) ng/mL NT-Pro-B Natriuret Pep (0-1800) pg/mL Digoxin (0.8-1.9) ng/mL ABO Group O Rh Factor POSITIVE Antibody Screen NEGATIVE (NEGATIVE) Crossmatch COMPATIBLE COMPATIBLE (COMPATIBLE) 03/17/20 03/17/20 03/17/20 Range/Units 04:20 04:20 04:20 WBC 5.8 (4.0-10.5) K/mm3 RBC 3.67 L (4.1-5.6) M/mm3 Hgb 9.0 L (12.5-18.0) gm/dl Hct 28.5 L (42-50) % MCV 77.7 L (78-100) fl MCH 24.5 L (26-32) pg MCHC 31.6 L (32-36) g/dl RDW 20.7 H (11.5-14.0) % Plt Count 254 (150-450) K/mm3 MPV 11.1 H (7.5-11.0) fl Sodium 132 L (137-145) mmol/L Potassium 4.0 (3.5-5.1) mmol/L Chloride 93 L (98-107) mmol/L Carbon Dioxide 28 (22-30) mmol/L Anion Gap 14.0 (5-15) MEQ/L BUN 66 H (9-20) mg/dL Creatinine 1.54 H (0.66-1.25) mg/dL Estimated GFR 46.1 ML/MIN Glucose 104 (74-106) mg/dL Calcium 8.7 (8.4-10.2) mg/dL Troponin I (0.000-0.034) ng/mL NT-Pro-B Natriuret Pep 4050 H (0-1800) pg/mL Digoxin 1.5 (0.8-1.9) ng/mL ABO Group Rh Factor Antibody Screen (NEGATIVE) Crossmatch (COMPATIBLE) 03/17/20 Range/Units 04:20 WBC (4.0-10.5) K/mm3 RBC (4.1-5.6) M/mm3 Hgb (12.5-18.0) gm/dl Hct (42-50) % MCV (78-100) fl MCH (26-32) pg MCHC (32-36) g/dl RDW (11.5-14.0) % Plt Count (150-450) K/mm3 MPV (7.5-11.0) fl Sodium (137-145) mmol/L Potassium (3.5-5.1) mmol/L Chloride (98-107) mmol/L Carbon Dioxide (22-30) mmol/L Anion Gap (5-15) MEQ/L BUN (9-20) mg/dL Creatinine (0.66-1.25) mg/dL Estimated GFR ML/MIN Glucose (74-106) mg/dL Calcium (8.4-10.2) mg/dL Troponin I 0.031 (0.000-0.034) ng/mL NT-Pro-B Natriuret Pep (0-1800) pg/mL Digoxin (0.8-1.9) ng/mL ABO Group Rh Factor Antibody Screen (NEGATIVE) Crossmatch (COMPATIBLE) Microbiology 03/16/20 02:15 Blood Culture - Preliminary Blood NO GROWTH TO DATE 03/16/20 01:55 Blood Culture - Preliminary Blood NO GROWTH TO DATE - Radiology Impressions Radiology Exams & Impressions: Radiology Procedures Category Date Time Status CHEST 1 VIEW (PORTABLE) IN AM Exams 03/17/20 06:14 Completed CHEST 1 VIEW (PORTABLE) Stat Exams 03/16/20 01:36 Completed - Other Procedures and Tests Respiratory Therapy 03/16/20 10:01 Oxygen Nasal Cannula 2 lpm 03/16/20 10:02 Respiratory Therapy Assessment DAILY Assessment/Plan (1) Acute CHF (congestive heart failure) Current Visit: Yes Status: Acute Assessment & Plan: Dr Ayala not control chemist over Holiday ,consult when he returns,continue to hold dig ,continue Eliquis as lkong as rectal bleed minimal,continue IV Lasix to diures Code(s): I50.9 - HEART FAILURE, UNSPECIFIED (2) Lower GI bleed Current Visit: Yes Status: Acute Assessment & Plan: GEN Surg consult but will need Cardiac clearance for scope Code(s): K92.2 - GASTROINTESTINAL HEMORRHAGE, UNSPECIFIED (3) Atrial fibrillation Current Visit: No Status: Chronic Assessment & Plan: continue Eliquis until Cardiology advises,monitor rate Code(s): I48.91 - UNSPECIFIED ATRIAL FIBRILLATION (4) Digoxin toxicity Current Visit: Yes Status: Acute Assessment & Plan: Digoxin held Code(s): T46.0X1A - POISONING BY CARDI-STIM GLYCOS/DRUG SIMLAR ACT, ACC, INIT (5) Edema due to congestive heart failure Current Visit: Yes Status: Chronic Code(s): I50.9 - HEART FAILURE, UNSPECIFIED (6) Hypertensive heart disease with congestive heart failure Current Visit: Yes Status: Chronic Code(s): I11.0 - HYPERTENSIVE HEART DISEASE WITH HEART FAILURE (7) Sleep apnea Current Visit: Yes Status: Chronic Assessment & Plan: cpap brought from home Code(s): G47.30 - SLEEP APNEA, UNSPECIFIED (8) Hyponatremia Current Visit: Yes Status: Acute Code(s): E87.1 - HYPO-OSMOLALITY AND HYPONATREMIA (9) Elevated d-dimer Current Visit: Yes Status: Acute Assessment & Plan: CT neg PE,no DVT-is on chronic anticoag Code(s): R79.89 - OTHER SPECIFIED ABNORMAL FINDINGS OF BLOOD CHEMISTRY
[2020-03-17] MEDS: BUMEX 1 MG PO SCH ×2 (10:35→17:22)
[2020-03-17] MEDS: ARTHROTEC PO SCH ×2 (10:37→21:59)
[2020-03-17] MEDS: ELIQUIS 2.5 MG TABLET PO SCH ×2 (10:37→21:59)
[2020-03-17] MEDS: Klor Con 10 MEQ PO SCH ×3 (10:38→21:59)
[2020-03-17] MEDS: SYNTHROID 50 MCG PO SCH (10:39)
[2020-03-17] MEDS: MAG-OX 400 PO SCH ×2 (10:39→21:59)
[2020-03-17] MEDS: Singulair 10 MG PO SCH (10:39)
[2020-03-17] MEDS: Zestril 5 MG PO SCH (10:40)
[2020-03-17] MEDS: Toprol-Xl 25MG Tablets PO SCH ×2 (10:40→21:59)
[2020-03-17] MEDS: Zaroxolyn 2.5 MG PO SCH ×2 (10:41→17:22)
[2020-03-17] MEDS: TYLENOL 325 MG PO PRN (12:05)
[2020-03-17] MEDS: Sodium Chloride 0.9% 1000 ML 1,000 ML IV SCH (14:35)
[2020-03-17 16:03] LABS: Hematocrit 30.3 % (42-50); Hemoglobin 9.6 gm/dl (12.5-18.0)
--- NOTE | 2020-03-17 17:26 | PCM.NOTE ---
Date and Time: 03/17/20 1720 Subjective Assessment: Patient received 1 unit PRBC last night and Hgb up from 8.4 to 9.0. He has good urinary output and no dyspnea or cough. He had BM followed by red blood again this morning.He had 2 formed BM yesterday followed by red blood per nursing. Objective Exam General Appearance: other (resting in recliner,more energetic voices feeling increased energy) Neurologic Exam: alert, oriented x 3 Skin Exam: warm, dry, other (improve color) Respiratory Exam: diminished breath sounds (bases), other (no wheeze or ronchi no rales) Cardiovascular Exam: irregular, edema (improving bilateral LE edema) OBJECTIVE DATA Vital Signs: Vital Signs - 24 hr Temp Pulse Resp BP Pulse Ox 03/17/20 16:00 97.8 F 51 L 17 129/45 94 L 03/17/20 12:00 97.8 F 51 L 17 94 L 03/17/20 07:34 97.8 F 63 16 129/45 94 L 03/17/20 07:23 92 H 14 92 L 03/17/20 04:05 98.2 F 61 16 113/43 95 03/16/20 23:47 97.5 F 53 L 17 126/54 99 03/16/20 20:15 90 27 H 97 03/16/20 20:02 97.6 F 71 20 112/40 99 Pain Assessment - Last Documented Pain Intensity 0 Pain Scale Used 0-10 Pain Scale Intake and Output: Intake & Output 03/15/20 03/16/20 03/17/20 03/18/20 11:59 11:59 11:59 11:59 Intake Total 240 2186 1146 Output Total 3050 5800 1250 Balance -2810 -3614 -104 Weight 121.7 kg 119 kg Lab Results: Lab Results-Last 24 Hours 03/16/20 03/16/20 03/16/20 Range/Units 15:45 15:45 23:15 WBC (4.0-10.5) K/mm3 RBC (4.1-5.6) M/mm3 Hgb 9.3 L (12.5-18.0) gm/dl Hct 29.4 L (42-50) % MCV (78-100) fl MCH (26-32) pg MCHC (32-36) g/dl RDW (11.5-14.0) % Plt Count (150-450) K/mm3 MPV (7.5-11.0) fl Sodium (137-145) mmol/L Potassium (3.5-5.1) mmol/L Chloride (98-107) mmol/L Carbon Dioxide (22-30) mmol/L Anion Gap (5-15) MEQ/L BUN (9-20) mg/dL Creatinine (0.66-1.25) mg/dL Estimated GFR ML/MIN Glucose (74-106) mg/dL Calcium (8.4-10.2) mg/dL Troponin I (0.000-0.034) ng/mL NT-Pro-B Natriuret Pep (0-1800) pg/mL Digoxin (0.8-1.9) ng/mL ABO Group O Rh Factor POSITIVE Antibody Screen NEGATIVE (NEGATIVE) Crossmatch COMPATIBLE COMPATIBLE (COMPATIBLE) 03/17/20 03/17/20 03/17/20 Range/Units 04:20 04:20 04:20 WBC 5.8 (4.0-10.5) K/mm3 RBC 3.67 L (4.1-5.6) M/mm3 Hgb 9.0 L (12.5-18.0) gm/dl Hct 28.5 L (42-50) % MCV 77.7 L (78-100) fl MCH 24.5 L (26-32) pg MCHC 31.6 L (32-36) g/dl RDW 20.7 H (11.5-14.0) % Plt Count 254 (150-450) K/mm3 MPV 11.1 H (7.5-11.0) fl Sodium 132 L (137-145) mmol/L Potassium 4.0 (3.5-5.1) mmol/L Chloride 93 L (98-107) mmol/L Carbon Dioxide 28 (22-30) mmol/L Anion Gap 14.0 (5-15) MEQ/L BUN 66 H (9-20) mg/dL Creatinine 1.54 H (0.66-1.25) mg/dL Estimated GFR 46.1 ML/MIN Glucose 104 (74-106) mg/dL Calcium 8.7 (8.4-10.2) mg/dL Troponin I (0.000-0.034) ng/mL NT-Pro-B Natriuret Pep 4050 H (0-1800) pg/mL Digoxin 1.5 (0.8-1.9) ng/mL ABO Group Rh Factor Antibody Screen (NEGATIVE) Crossmatch (COMPATIBLE) 03/17/20 03/17/20 Range/Units 04:20 16:00 WBC (4.0-10.5) K/mm3 RBC (4.1-5.6) M/mm3 Hgb 9.6 L (12.5-18.0) gm/dl Hct 30.3 L (42-50) % MCV (78-100) fl MCH (26-32) pg MCHC (32-36) g/dl RDW (11.5-14.0) % Plt Count (150-450) K/mm3 MPV (7.5-11.0) fl Sodium (137-145) mmol/L Potassium (3.5-5.1) mmol/L Chloride (98-107) mmol/L Carbon Dioxide (22-30) mmol/L Anion Gap (5-15) MEQ/L BUN (9-20) mg/dL Creatinine (0.66-1.25) mg/dL Estimated GFR ML/MIN Glucose (74-106) mg/dL Calcium (8.4-10.2) mg/dL Troponin I 0.031 (0.000-0.034) ng/mL NT-Pro-B Natriuret Pep (0-1800) pg/mL Digoxin (0.8-1.9) ng/mL ABO Group Rh Factor Antibody Screen (NEGATIVE) Crossmatch (COMPATIBLE) Radiology Exams: Radiology Procedures Category Date Time Status CHEST 1 VIEW (PORTABLE) IN AM Exams 03/17/20 06:14 Completed CHEST 1 VIEW (PORTABLE) Stat Exams 03/16/20 01:36 Completed Assessment/Plan (1) Acute CHF (congestive heart failure) Current Visit: Yes Status: Acute Assessment & Plan: Cardilogy consult Code(s): I50.9 - HEART FAILURE, UNSPECIFIED (2) Anemia Current Visit: Yes Status: Acute Qualifiers: Anemia type: iron deficiency Iron deficiency anemia type: chronic blood loss Qualified Code(s): D50.0 - Iron deficiency anemia secondary to blood loss (chronic) Assessment & Plan: HGb improved 1 count after 1 unit PRBC,will give 2nd unit delayed after 1st due to CHF.Still loss of blood rectally after BM today .Will have Specialist consult after the Holiday. Code(s): D64.9 - ANEMIA, UNSPECIFIED
[2020-03-17] MEDS: Lasix 40 MG/4 ML IV SCH (17:39)
[2020-03-18] MEDS: Lasix 40 MG/4 ML IV SCH ×2 (05:07→17:59)
[2020-03-18] MEDS: VENTOLIN COMMON CANISTER IH SCH ×4 (07:00→21:14)
[2020-03-18] MEDS: Advair Hfa 115/21 Common canister IH SCH ×2 (07:00→21:16)
[2020-03-18 08:22] LABS: Hematocrit 31.5 % (42-50); Hemoglobin 9.8 gm/dl (12.5-18.0); Mean Cell Volume 79.1 fl (78-100); Mean Corpuscular Hemoglobin 24.6 pg (26-32); Mean Corpuscular Hgb Concent. 31.1 g/dl (32-36); Mean Platelet Volume 11.2 fl (7.5-11.0); Platelet Count 271 K/mm3 (150-450); Red Blood Count 3.98 M/mm3 (4.1-5.6); Red Cell Distribution Width 21.2 % (11.5-14.0); White Blood Count 7.1 K/mm3 (4.0-10.5)
[2020-03-18 08:32] LABS: ANION GAP 13.7 MEQ/L (5-15); Calcium 8.6 mg/dL (8.4-10.2); Creatinine 1 1.54 mg/dL (0.66-1.25); MAGNESIUM 1.9 mg/dL (1.6-2.3); Potassium 4.4 mmol/L (3.5-5.1)
--- NOTE | 2020-03-18 09:01 | PCM.NOTE ---
Date and Time: 03/18/20 0853 Subjective Assessment: Pt has no complaints. Says his LE edema is better. Den po. To be seen by Dr. Ayala today. Had slightly elevated troponin this morning. - Review of Systems Constitutional: Weakness Cardiac: Edema Objective Exam General Appearance: no apparent distress, alert Neurologic Exam: oriented x 3, cooperative Skin Exam: warm, dry, No rash Eye Exam: eyes nml inspection Respiratory Exam: lungs clear, diminished breath sounds, No crackles/rales, No rhonchi, No wheezing Cardiovascular Exam: normal heart sounds, irregular, No murmur Extremity Exam: other (2+ pitting edema bilat LE; LLE with slight erythema anteriorly) OBJECTIVE DATA Vital Signs: Vital Signs - 24 hr Temp Pulse Resp BP Pulse Ox 03/18/20 07:15 98.0 F 52 L 20 117/55 95 03/18/20 04:00 98.8 F 65 18 131/52 98 03/18/20 00:00 97.6 F 66 20 114/53 98 03/17/20 20:15 58 L 20 99 03/17/20 20:00 98.6 F 52 L 16 113/57 96 03/17/20 16:04 43 L 16 95 03/17/20 16:00 97.8 F 51 L 17 129/45 94 L 03/17/20 12:00 97.8 F 51 L 17 94 L Pain Assessment - Last Documented Pain Intensity 0 Pain Scale Used 0-10 Pain Scale Intake and Output: Intake & Output 03/15/20 03/16/20 03/17/20 03/18/20 11:59 11:59 11:59 11:59 Intake Total 240 2186 2820 Output Total 3052 9520 3850 Balance -8120 -7144 -1030 Weight 121.7 kg 119 kg 119.3 kg Lab Results: Lab Results-Last 24 Hours 03/17/20 03/18/20 03/18/20 Range/Units 16:00 04:15 05:00 WBC 7.1 (4.0-10.5) K/mm3 RBC 3.98 L (4.1-5.6) M/mm3 Hgb 9.6 L 9.8 L (12.5-18.0) gm/dl Hct 30.3 L 31.5 L (42-50) % MCV 79.1 (78-100) fl MCH 24.6 L (26-32) pg MCHC 31.1 L (32-36) g/dl RDW 21.2 H (11.5-14.0) % Plt Count 271 (150-450) K/mm3 MPV 11.2 H (7.5-11.0) fl Sodium (137-145) mmol/L Potassium (3.5-5.1) mmol/L Chloride (98-107) mmol/L Carbon Dioxide (22-30) mmol/L Anion Gap (5-15) MEQ/L BUN (9-20) mg/dL Creatinine (0.66-1.25) mg/dL Estimated GFR ML/MIN Glucose (74-106) mg/dL Calcium (8.4-10.2) mg/dL Magnesium (1.6-2.3) mg/dL Troponin I 0.039 H* (0.000-0.034) ng/mL 03/18/20 Range/Units 05:00 WBC (4.0-10.5) K/mm3 RBC (4.1-5.6) M/mm3 Hgb (12.5-18.0) gm/dl Hct (42-50) % MCV (78-100) fl MCH (26-32) pg MCHC (32-36) g/dl RDW (11.5-14.0) % Plt Count (150-450) K/mm3 MPV (7.5-11.0) fl Sodium 131 L (137-145) mmol/L Potassium 4.4 (3.5-5.1) mmol/L Chloride 93 L (98-107) mmol/L Carbon Dioxide 30 (22-30) mmol/L Anion Gap 13.7 (5-15) MEQ/L BUN 68 H (9-20) mg/dL Creatinine 1.54 H (0.66-1.25) mg/dL Estimated GFR 46.1 ML/MIN Glucose 112 H (74-106) mg/dL Calcium 8.6 (8.4-10.2) mg/dL Magnesium 1.9 (1.6-2.3) mg/dL Troponin I (0.000-0.034) ng/mL Radiology Exams: Radiology Procedures Category Date Time Status CHEST 1 VIEW (PORTABLE) IN AM Exams 03/17/20 06:14 Completed Assessment/Plan (1) Elevated troponin Current Visit: Yes Status: Acute Assessment & Plan: I think likely due to the CHF Code(s): R79.89 - OTHER SPECIFIED ABNORMAL FINDINGS OF BLOOD CHEMISTRY (2) Acute CHF (congestive heart failure) Current Visit: No Status: Acute Qualifiers: Qualified Code(s): I50.41 - Acute combined systolic (congestive) and diastolic (congestive) heart failure Assessment & Plan: Dr. Ayala to consult, thank you. Has been diuresed with good results although the legs are still quite swollen. Code(s): I50.9 - HEART FAILURE, UNSPECIFIED (3) Atrial fibrillation Current Visit: No Status: Chronic Assessment & Plan: on eliquis; will stop that and bridge with lovenox. Code(s): I48.91 - UNSPECIFIED ATRIAL FIBRILLATION (4) Hypertensive heart disease with congestive heart failure Current Visit: No Status: Chronic Assessment & Plan: labs pending Code(s): I11.0 - HYPERTENSIVE HEART DISEASE WITH HEART FAILURE (5) Anemia Current Visit: Yes Status: Acute Qualifiers: Anemia type: iron deficiency Iron deficiency anemia type: chronic blood loss Qualified Code(s): D50.0 - Iron deficiency anemia secondary to blood loss (chronic) Assessment & Plan: pt has had quite a few episodes of epistaxis, apparently. However, he is also supposed to get a colonoscopy in 2 days. Code(s): D64.9 - ANEMIA, UNSPECIFIED (6) Epistaxis Current Visit: Yes Status: Acute Code(s): R04.0 - EPISTAXIS
[2020-03-18] MEDS: MAG-OX 400 PO SCH ×2 (10:00→21:05)
[2020-03-18] MEDS: Klor Con 10 MEQ PO SCH ×3 (10:00→21:05)
[2020-03-18] MEDS: SYNTHROID 50 MCG PO SCH (10:01)
[2020-03-18] MEDS: Toprol-Xl 25MG Tablets PO SCH ×2 (10:01→21:05)
[2020-03-18] MEDS: Zaroxolyn 2.5 MG PO SCH ×2 (10:01→17:58)
[2020-03-18] MEDS: Singulair 10 MG PO SCH (10:01)
[2020-03-18] MEDS: Zestril 5 MG PO SCH (10:04)
[2020-03-18] MEDS: ENOXAPARIN SODIUM SQ SCH (10:06)
[2020-03-18] MEDS: Sodium Chloride 0.9% 1000 ML 1,000 ML IV SCH (15:46)
[2020-03-18] MEDS: TYLENOL 325 MG PO PRN (22:20)
[2020-03-19] MEDS: Lasix 40 MG/4 ML IV SCH ×2 (04:57→18:10)
[2020-03-19] MEDS: Advair Hfa 115/21 Common canister IH SCH ×2 (06:47→19:55)
[2020-03-19] MEDS: VENTOLIN COMMON CANISTER IH SCH ×4 (06:47→19:53)
[2020-03-19 07:58] LABS: ANION GAP 14.9 MEQ/L (5-15); Calcium 8.9 mg/dL (8.4-10.2); Creatinine 1 1.26 mg/dL (0.66-1.25); MAGNESIUM 1.8 mg/dL (1.6-2.3); Potassium 4.2 mmol/L (3.5-5.1)
--- NOTE | 2020-03-19 08:45 | PCM.NOTE ---
Date and Time: 03/19/20 0842 Subjective Assessment: Pt has no complaints this a.m., breathing is good. He states he still feels his legs are better, less swollen. Dr. Ayala saw the pt yesterday, thank you, and is getting an echocardiogram, in hopes of clearing the pt to have colonoscopy tomorrow. - Review of Systems Constitutional: No Fever Cardiac: Edema Objective Exam General Appearance: no apparent distress, alert Neurologic Exam: oriented x 3, cooperative Skin Exam: warm, dry, No rash Respiratory Exam: normal breath sounds, lungs clear, No crackles/rales, No rhonchi, No wheezing Cardiovascular Exam: regular rate/rhythm, normal heart sounds, No murmur Gastrointestinal/Abdomen Exam: soft, normal bowel sounds, No tenderness, No distention, No mass, No guarding, No rebound Extremity Exam: other (LE edema 2+ pretibial and feet bilat. decreased anterior erythema on LLE, decreased foot erythema, dorsum, on R) OBJECTIVE DATA Vital Signs: Vital Signs - 24 hr Temp Pulse Resp BP Pulse Ox 03/19/20 07:14 97.8 F 55 L 16 145/64 92 L 03/19/20 07:02 48 L 16 97 03/19/20 04:30 98.5 F 58 L 17 137/63 97 03/18/20 23:12 98.1 F 59 L 16 129/58 95 03/18/20 21:24 55 L 23 97 03/18/20 20:00 97.4 F 55 L 23 140/54 97 03/18/20 16:00 97.4 F 63 20 140/54 96 03/18/20 14:47 95 03/18/20 11:46 97.8 F 55 L 18 118/50 96 03/18/20 10:56 52 L 20 96 Pain Assessment - Last Documented Pain Intensity 0 Pain Scale Used 0-10 Pain Scale Intake and Output: Intake & Output 03/16/20 03/17/20 03/18/20 03/19/20 11:59 11:59 11:59 11:59 Intake Total 240 2186 3180 2059 Output Total 3050 5800 5300 6100 Balance -8466 -2531 -9292 -0574 Weight 121.7 kg 119 kg 119.3 kg 119.3 kg Lab Results: Lab Results-Last 24 Hours 03/18/20 03/18/20 03/19/20 Range/Units 09:01 Unknown 04:20 Sodium (137-145) mmol/L Potassium (3.5-5.1) mmol/L Chloride (98-107) mmol/L Carbon Dioxide (22-30) mmol/L Anion Gap (5-15) MEQ/L BUN (9-20) mg/dL Creatinine (0.66-1.25) mg/dL Estimated GFR ML/MIN Glucose (74-106) mg/dL Calcium (8.4-10.2) mg/dL Magnesium (1.6-2.3) mg/dL Troponin I 0.032 (0.000-0.034) ng/mL NT-Pro-B Natriuret Pep 3420 H (0-1800) pg/mL Digoxin 1.5 (0.8-1.9) ng/mL 03/19/20 Range/Units 05:00 Sodium 130 L (137-145) mmol/L Potassium 4.2 (3.5-5.1) mmol/L Chloride 91 L (98-107) mmol/L Carbon Dioxide 29 (22-30) mmol/L Anion Gap 14.9 (5-15) MEQ/L BUN 56 H (9-20) mg/dL Creatinine 1.26 H (0.66-1.25) mg/dL Estimated GFR 58.1 ML/MIN Glucose 110 H (74-106) mg/dL Calcium 8.9 (8.4-10.2) mg/dL Magnesium 1.8 (1.6-2.3) mg/dL Troponin I (0.000-0.034) ng/mL NT-Pro-B Natriuret Pep (0-1800) pg/mL Digoxin (0.8-1.9) ng/mL Radiology Exams: Radiology Procedures Category Date Time Status ECHO W/2D AND DOPPLER [US] Routine Exams 03/19/20 08:00 Taken Assessment/Plan (1) Acute CHF (congestive heart failure) Current Visit: No Status: Acute Qualifiers: Qualified Code(s): I50.41 - Acute combined systolic (congestive) and diastolic (congestive) heart failure Assessment & Plan: on lasix 40mg IV BID - would consider changing to 80mg IV daily. Code(s): I50.9 - HEART FAILURE, UNSPECIFIED (2) Elevated troponin Current Visit: Yes Status: Resolved Code(s): R79.89 - OTHER SPECIFIED ABNORMAL FINDINGS OF BLOOD CHEMISTRY (3) Atrial fibrillation Current Visit: No Status: Chronic Code(s): I48.91 - UNSPECIFIED ATRIAL FIBRILLATION (4) Hypertensive heart disease with congestive heart failure Current Visit: No Status: Chronic Code(s): I11.0 - HYPERTENSIVE HEART DISEASE WITH HEART FAILURE (5) Anemia Current Visit: Yes Status: Acute Qualifiers: Anemia type: iron deficiency Iron deficiency anemia type: chronic blood loss Qualified Code(s): D50.0 - Iron deficiency anemia secondary to blood loss (chronic) Assessment & Plan: rechecking hgb. Pt needs colonoscopy. Code(s): D64.9 - ANEMIA, UNSPECIFIED (6) Epistaxis Current Visit: Yes Status: Chronic Code(s): R04.0 - EPISTAXIS
[2020-03-19] MEDS: SYNTHROID 50 MCG PO SCH (09:00)
[2020-03-19] MEDS: Toprol-Xl 25MG Tablets PO SCH ×2 (09:00→21:14)
[2020-03-19] MEDS: Klor Con 10 MEQ PO SCH ×3 (09:00→21:14)
[2020-03-19] MEDS: MAG-OX 400 PO SCH ×2 (09:00→21:14)
[2020-03-19] MEDS: Zaroxolyn 2.5 MG PO SCH ×2 (09:00→18:10)
[2020-03-19] MEDS: Singulair 10 MG PO SCH (09:00)
[2020-03-19] MEDS: Zestril 5 MG PO SCH (09:01)
--- NOTE | 2020-03-19 09:12 | CONS ---
CONSULT DATE: 03/18/2020 BRIEF HISTORY: This is an 85 year-old male with known history of atrial fibrillation who was seen for preoperative cardiac evaluation prior to a planned upper endoscopy and colonoscopy. The patient was primarily admitted with shortness of breath and progressive leg swelling. On initial evaluation was noted to have elevated creatinine with hemoglobin 8.7. The digoxin level was also elevated. His digoxin has been discontinued. He denies any chest pains. He remains in atrial fibrillation. He stated that he could hardly do anything because he gets short of breath easily. While in the hospital he was found to have some rectal bleeding and is now scheduled for upper endoscopy and also colonoscopy. PAST MEDICAL HISTORY: The patient has history of left ventricular dysfunction and has chronic atrial fibrillation for which he is chronically anticoagulated. CARDIAC RISK FACTORS: Negative for diabetes. Positive for hypertension. He has a remote history of smoking quitting in 1996 but prior to this he smoked about a pack of cigarettes a day. FAMILY HISTORY: Negative for premature coronary artery disease. REVIEW OF SYSTEMS: HOTEL DIRECTOR: No history of stroke. No chronic headache. RESPIRATORY: He has history of asthma and chronic obstructive lung disease and obstructive sleep apnea. He was using CPAP. GI: History of reflux symptoms. He had recent GI bleed. : He has renal insufficiency. PERIPHERAL VASCULAR: He has intermittent leg swelling. MUSCULOSKELETAL: He has degenerative joint disorder. HEMATOLOGY: No blood dyscrasia. PAST SURGICAL HISTORY: Carpal tunnel surgery. Removal of cysts from his fingers. CURRENT MEDICATIONS: Albuterol inhaler, Advair, Furosemide, levothyroxine, lisinopril, Magnesium-Ox, metolazone, metoprolol, Singulair, potassium. SOCIAL HISTORY: Remote history of alcohol intake. He has two daughters. PHYSICAL EXAMINATION: Blood pressure 131/52, heart rate 65, respirations 18. GENERAL: The patient is an elderly male who is comfortable in semi-recumbent position. HEENT: Nonicteric sclera. Pale conjunctivae. NECK: No obvious JVD. No carotid bruit. CHEST: The breath sounds are diminished bilaterally. CARDIAC: Heart tones are distant. The rhythm is atrial fibrillation. ABDOMEN: Soft with normal bowel sounds. EXTREMITIES: Bilateral 3 to 4+ pretibial edema. LAB DATA AND DIAGNOSTIC TESTS: The proBNP is 3,420. Digoxin level is down to 1.5. CBC showed hemoglobin 9.8 with PLT count of 271,000. Creatinine 1.5. The EKG showed atrial fibrillation with ectopic ventricular beats. ASSESSMENT: 1) The patient has chronic atrial fibrillation. The goal of treatment is heart rate control and anticoagulation. 2) History of hypertension. 3) Chronic kidney disease. PLAN: The patient presented with congestive heart failure most likely secondary to left ventricular systolic dysfunction which is compounded by the presence of renal failure. He still appears to be volume overloaded. I would get an echocardiogram to assess left ventricular systolic function. Meanwhile hold the DOAC (direct oral anticoagulant) due to the planned procedure. Further recommendations will be made after the echocardiogram has been performed. I will follow up with you.
[2020-03-19] MEDS: TYLENOL 325 MG PO PRN ×3 (09:41→20:06)
--- NOTE | 2020-03-19 10:46 | ECHO ---
Transthoracic echocardiographic examination and color Doppler was done on 03/19/2020. INDICATION: Shortness of breath, atrial fibrillation, congestive heart failure. IMPRESSION: 1) MILD LEFT VENTRICULAR HYPOKINESIA. EJECTION FRACTION AROUND 40-50%. 2) MODERATE MITRAL REGURGITATION. 3) MODERATE TRICUSPID REGURGITATION. RIGHT VENTRICULAR SYSTOLIC PRESSURE OF 50 MM OF MERCURY. 4) MODERATE PULMONIC INSUFFICIENCY. 5) SEVERE LEFT ATRIAL DILATATION. 6) MODERATELY DILATED RIGHT-SIDED CHAMBERS. 7) LEFT VENTRICULAR HYPERTROPHY. The left ventricle is visualized and demonstrated left ventricular hypokinesia. Ejection fraction around 40-50%. There mild left ventricular hypertrophy. The mitral valve is seen and this opens adequately. There is moderate mitral regurgitation. The left atrium is severely dilated. The aortic valve is trileaflet and opens adequately. The right side chambers are moderately dilated. There is moderate tricuspid regurgitation. The right ventricular systolic pressure of 50 mm of Mercury suggestive of moderate pulmonary hypertension. There is also moderate pulmonic insufficiency.
[2020-03-19] MEDS: ENOXAPARIN SODIUM SQ SCH (11:23)
[2020-03-19 11:35] LABS: Hematocrit 32.1 % (42-50); Hemoglobin 10.4 gm/dl (12.5-18.0); Mean Cell Volume 78.3 fl (78-100); Mean Corpuscular Hemoglobin 25.4 pg (26-32); Mean Corpuscular Hgb Concent. 32.4 g/dl (32-36); Mean Platelet Volume 11.4 fl (7.5-11.0); Platelet Count 265 K/mm3 (150-450); Red Cell Distribution Width 21.9 % (11.5-14.0); White Blood Count 7.5 K/mm3 (4.0-10.5)
[2020-03-19] MEDS: PATIENT OWN MEDICATION OP SCH ×2 (13:37→22:46)
[2020-03-19] MEDS ORDERED: Golytely Solution 4000 ML PO ONE (15:00)
[2020-03-19] MEDS: Lactated Ringers 1,000 ML IV SCH (19:18)
[2020-03-19] MEDS: Sodium Chloride 0.9% 1000 ML 1,000 ML IV SCH ×2 (19:20→22:46)
[2020-03-19] MEDS ORDERED: NON-FORMULARY ITEM OP SCH (22:00)
[2020-03-20] MEDS: TYLENOL 325 MG PO PRN ×3 (00:52→21:01)
[2020-03-20 04:53] LABS: Hematocrit 33.4 % (42-50); Hemoglobin 10.8 gm/dl (12.5-18.0); Mean Cell Volume 77.5 fl (78-100); Mean Corpuscular Hemoglobin 25.1 pg (26-32); Mean Corpuscular Hgb Concent. 32.3 g/dl (32-36); Mean Platelet Volume 10.6 fl (7.5-11.0); Platelet Count 294 K/mm3 (150-450); Red Blood Count 4.31 M/mm3 (4.1-5.6); Red Cell Distribution Width 21.8 % (11.5-14.0); White Blood Count 7.8 K/mm3 (4.0-10.5)
[2020-03-20 05:07] LABS: Calcium 8.9 mg/dL (8.4-10.2); Creatinine 1 1.23 mg/dL (0.66-1.25); MAGNESIUM 1.8 mg/dL (1.6-2.3)
[2020-03-20] MEDS: Lasix 40 MG/4 ML IV SCH (06:05)
[2020-03-20] MEDS: Advair Hfa 115/21 Common canister IH SCH ×2 (07:07→19:44)
[2020-03-20] MEDS: VENTOLIN COMMON CANISTER IH SCH ×3 (07:07→19:44)
[2020-03-20] MEDS ORDERED: Ketamine HCl 50 MG/ML ONE (09:34)
[2020-03-20] MEDS ORDERED: Xylocaine-Mpf 2% 5 Ml Vial ONE (09:34)
[2020-03-20] MEDS ORDERED: DIPRIVAN 200 MG/20 ML IV ONE (09:34)
[2020-03-20] MEDS ORDERED: Ephedrine Sulfate 50 MG/ML ONE (09:55)
[2020-03-20] MEDS: MAG-OX 400 PO SCH ×2 (10:28→21:00)
[2020-03-20] MEDS: Klor Con 10 MEQ PO SCH ×3 (10:28→21:00)
[2020-03-20] MEDS: Singulair 10 MG PO SCH (10:29)
[2020-03-20] MEDS: PATIENT OWN MEDICATION OP SCH ×2 (10:29→21:01)
[2020-03-20] MEDS: Toprol-Xl 25MG Tablets PO SCH ×2 (10:30→21:00)
[2020-03-20] MEDS: Zestril 5 MG PO SCH (10:30)
[2020-03-20] MEDS: SYNTHROID 50 MCG PO SCH (10:30)
[2020-03-20] MEDS: Zaroxolyn 2.5 MG PO SCH ×2 (10:30→17:17)
[2020-03-20] MEDS ORDERED: NORCO 5/325 MG PO PRN (10:38)
[2020-03-20] MEDS ORDERED: Sodium Chloride 0.9% 10 ML FLUSH Syringe IV PRN (11:00)
--- NOTE | 2020-03-20 14:10 | OP ---
SURGERY DATE/TIME: 03/20/2020 0943 PREOPERATIVE DIAGNOSIS: GI bleeding. POSTOPERATIVE DIAGNOSIS: Moderate sigmoid diverticulosis, mild pancolonic diverticulosis. PROCEDURE: Colonoscopy complete to cecum. PREP: Excellent prep. SURGEON: Ankit Lynn M.D. ANESTHESIA: MAC. HISTORY: The patient had GI bleeding. He has not had a recent exam. He did have some persistent stool. He was given two enemas this morning. DESCRIPTION OF PROCEDURE: Taken to endoscopy. MAC sedation provided. Anal digital examination satisfactory. Scope advanced. Scope advanced to the cecum. Ileocecal valve, stump of the appendix was present. Ascending, hepatic there was a very light diverticulosis in a pancolonic fashion. Splenic, descending, sigmoid moderate diverticulosis of sigmoid. Rectum, anus there was no blood seen on today's examination. There was no major lesion seen on today's examination. PLAN: Follow up probably not necessary in this 85 year-old.
--- NOTE | 2020-03-20 15:25 | PCM.NOTE ---
Date and Time: 03/20/20 1522 Subjective Assessment: Pt was c/o neck pain earlier, was given norco. Pt had colonoscopy this morning , per verbal report was just diverticulosis, no source of bleeding found. Pt is feeling "great!" - Review of Systems Constitutional: No Fever Cardiac: Edema Objective Exam General Appearance: no apparent distress, alert Neurologic Exam: oriented x 3, cooperative Skin Exam: normal color, warm, other (LE covered with barrier cream. Grossly edematous as before, mild anterior L lower leg erythema), No rash Respiratory Exam: normal breath sounds, lungs clear, No crackles/rales, No rhonchi, No wheezing Cardiovascular Exam: regular rate/rhythm, normal heart sounds, No murmur Gastrointestinal/Abdomen Exam: soft, normal bowel sounds, No tenderness, No distention, No mass, No guarding, No rebound Extremity Exam: other (as in skin exam) OBJECTIVE DATA Vital Signs: Vital Signs - 24 hr Temp Pulse Resp BP Pulse Ox 03/20/20 14:56 97.5 F 64 22 109/49 94 L 03/20/20 11:31 71 20 95/68 93 L 03/20/20 11:00 61 18 95 03/20/20 10:31 97.7 F 73 20 92/46 95 03/20/20 07:20 97.3 F 76 16 141/57 100 03/20/20 07:13 66 18 98 03/20/20 05:50 97.6 F 55 L 16 111/58 96 03/20/20 04:00 97.6 F 55 L 16 111/58 96 03/20/20 00:00 97.9 F 69 15 109/60 96 03/19/20 20:01 74 16 99 03/19/20 19:44 98.2 F 121 H 19 121/50 97 03/19/20 16:00 97.5 F 71 15 122/71 95 Pain Assessment - Last Documented Pain Intensity 6 Pain Scale Used 0-10 Pain Scale Intake and Output: Intake & Output 03/18/20 03/19/20 03/20/20 03/21/20 11:59 11:59 11:59 11:59 Intake Total 3180 2419 3300 520 Output Total 5300 7900 5470 650 Balance -2120 -5481 -2126 -130 Weight 119.3 kg 119.3 kg 116.7 kg Lab Results: Lab Results-Last 24 Hours 03/20/20 03/20/20 Range/Units 04:15 04:15 WBC 7.8 (4.0-10.5) K/mm3 RBC 4.31 (4.1-5.6) M/mm3 Hgb 10.8 L (12.5-18.0) gm/dl Hct 33.4 L (42-50) % MCV 77.5 L (78-100) fl MCH 25.1 L (26-32) pg MCHC 32.3 (32-36) g/dl RDW 21.8 H (11.5-14.0) % Plt Count 294 (150-450) K/mm3 MPV 10.6 (7.5-11.0) fl Sodium 129 L (137-145) mmol/L Potassium 4.0 (3.5-5.1) mmol/L Chloride 88 L (98-107) mmol/L Carbon Dioxide 28 (22-30) mmol/L Anion Gap 17.0 H (5-15) MEQ/L BUN 45 H (9-20) mg/dL Creatinine 1.23 (0.66-1.25) mg/dL Estimated GFR 59.7 ML/MIN Glucose 109 H (74-106) mg/dL Calcium 8.9 (8.4-10.2) mg/dL Magnesium 1.8 (1.6-2.3) mg/dL Radiology Exams: Radiology Procedures Category Date Time Status ECHO W/2D AND DOPPLER [US] Routine Exams 03/19/20 08:00 Draft Multi-Disciplinary Progress Notes: Multi-Disciplinary Progress Notes 03/20/20 11:40 Case Management Note by Cynthia Mclaughlin PATIENT S/P SCOPE TODAY, PATIENT INTERESTED IN SWINGBED WHEN MEDICALLY READY FOR DC. PRIMARY NURSE WILL NOTIFY DR. QUINTANILLA Initialized on 03/20/20 11:40 - END OF NOTE 03/19/20 15:31 Physical Therapy Note by Ann Rodas PT. AWAITING PREP FOR COLONOSCOPY. PERFORMED SIT TO STAND W/ MIN TO MOD ASSIST FROM LOW CHAIR. AMBULATED ~ 50' W/ ROLLER WALKER AND CGA-MIN ASSIST. NOTED KNEE PN W/ WB THAT IS CHRONIC. LE EDEMA STILL CONSIDERABLE BUT PT. REPORTS IS DECREASED SINCE ADMISSION. WILL CONT. PT 5X/WK. PLAN IS TO MOVE TO SWING BED WHEN STABLE. ANN DARLEEN, PT Initialized on 03/19/20 15:31 - END OF NOTE Assessment/Plan (1) Acute CHF (congestive heart failure) Current Visit: No Status: Acute Qualifiers: Qualified Code(s): I50.41 - Acute combined systolic (congestive) and diastolic (congestive) heart failure Assessment & Plan: changing lasix to 80mg IV daily. Continue labs for now, discussed with pt and his Leeanna the balance between adeuqate fluids/renal function and edema. Code(s): I50.9 - HEART FAILURE, UNSPECIFIED (2) Elevated troponin Current Visit: Yes Status: Resolved Code(s): R79.89 - OTHER SPECIFIED ABNORMAL FINDINGS OF BLOOD CHEMISTRY (3) Atrial fibrillation Current Visit: No Status: Chronic Code(s): I48.91 - UNSPECIFIED ATRIAL FIBRILLATION (4) Hypertensive heart disease with congestive heart failure Current Visit: No Status: Chronic Code(s): I11.0 - HYPERTENSIVE HEART DISEASE WITH HEART FAILURE (5) Anemia Current Visit: Yes Status: Acute Qualifiers: Anemia type: iron deficiency Iron deficiency anemia type: chronic blood loss Qualified Code(s): D50.0 - Iron deficiency anemia secondary to blood loss (chronic) Code(s): D64.9 - ANEMIA, UNSPECIFIED (6) Epistaxis Current Visit: Yes Status: Chronic Code(s): R04.0 - EPISTAXIS (7) Renal insufficiency Current Visit: Yes Status: Chronic Assessment & Plan: much improved
[2020-03-20] MEDS: Sodium Chloride 0.9% 10 ML FLUSH Syringe IV SCH (15:35)
[2020-03-20] MEDS ORDERED: Lasix 40 MG/4 ML IV ONE (17:00)
[2020-03-20] MEDS ORDERED: VENTOLIN COMMON CANISTER IH SCH (19:00)
[2020-03-20] MEDS: Lactated Ringers 1,000 ML IV SCH (20:08)
[2020-03-21] MEDS: Sodium Chloride 0.9% 10 ML FLUSH Syringe IV SCH ×2 (04:49→05:43)
[2020-03-21 05:21] LABS: Hematocrit 32.9 % (42-50); Hemoglobin 10.5 gm/dl (12.5-18.0); Mean Corpuscular Hemoglobin 24.9 pg (26-32); Mean Corpuscular Hgb Concent. 31.9 g/dl (32-36); Mean Platelet Volume 10.5 fl (7.5-11.0); Platelet Count 263 K/mm3 (150-450); Red Blood Count 4.22 M/mm3 (4.1-5.6); White Blood Count 9.1 K/mm3 (4.0-10.5)
[2020-03-21 05:26] LABS: ANION GAP 15.8 MEQ/L (5-15); Calcium 8.7 mg/dL (8.4-10.2); Creatinine 1 1.45 mg/dL (0.66-1.25); MAGNESIUM 1.9 mg/dL (1.6-2.3); Potassium 4.1 mmol/L (3.5-5.1)
[2020-03-21] MEDS: VENTOLIN COMMON CANISTER IH SCH (07:04)
[2020-03-21] MEDS ORDERED: Lasix 40 MG/4 ML IV SCH (10:00)
[2020-03-21] MEDS: Toprol-Xl 25MG Tablets PO SCH (10:26)
[2020-03-21] MEDS: SYNTHROID 50 MCG PO SCH (10:27)
[2020-03-21] MEDS: Klor Con 10 MEQ PO SCH ×2 (10:27→15:22)
[2020-03-21] MEDS: Zaroxolyn 2.5 MG PO SCH (10:27)
[2020-03-21] MEDS: MAG-OX 400 PO SCH (10:28)
[2020-03-21] MEDS: Singulair 10 MG PO SCH (10:28)
[2020-03-21] MEDS: Zestril 5 MG PO SCH (10:29)
[2020-03-21] MEDS: PATIENT OWN MEDICATION OP SCH (10:47)
[2020-03-21] MEDS: ENOXAPARIN SODIUM SQ SCH (11:03)
[2020-03-21 12:00] VITALS: BP 114/58; PULSE 73; O2SAT 97
--- NOTE | 2020-03-21 15:27 | PCM.DS ---
Discharge Summary Date of Admission: 03/16/20 16:29 Admitting Physician: BETZAIDA DAVIS DO Consults: Consults on Case 03/17/20 08:00 Consult Cardiology ROUTINE 03/17/20 14:37 Consult Surgery ROUTINE Primary Care Provider: RADHA,VISHNU Allergies Allergies iodine Allergy (Severe, Verified 04/02/19 17:57) Difficulty Breathing shellfish derived Allergy (Severe, Verified 04/02/19 17:57) Difficulty Breathing Hospital Summary - Hospital Course Hospital Course: Pt is 85 yo male with PMHx ,including afib, CHF, BPH (s/p TURP), HTN who was admitted with CHF and anemia. His hgb dropped from 11.2 to 8.4 and he was given 1 unit PRBC; his hgb has been stable since then. He had brbpr and had a colonoscopy done yesterday, which only showed diverticulosis. Pt had elevated digoxin on admission and it has been held; last level was not elevated. Pt's feet were extremely swollen on admission; they continue to be markedly edematous , but there is definitely a difference in the past few days and the pt says there is a great difference from admission. Echo showed EF of 40-50%. CXR on admission and repeat showed cardiomegaly and slight bibasilar effusions. Pt is currently on lasix 80mg IV daily (changed from 40mg IV BID today). Will need BMP repeat in 1-2d. His feet are doing better. - Vitals & Intake/Output Vital Signs: Vital Signs Temperature 97.8 F 03/21/20 12:00 Pulse Rate 73 03/21/20 12:00 Respiratory Rate 16 03/21/20 12:00 Blood Pressure 114/58 03/21/20 12:00 O2 Sat by Pulse Oximetry 97 03/21/20 12:00 Intake & Output: Intake & Output 03/19/20 03/20/20 03/21/20 03/22/20 11:59 11:59 11:59 11:59 Intake Total 2419 3300 3100 1440 Output Total 7900 5426 2900 2275 Balance -0156 -9352 200 -835 Weight 119.3 kg 116.7 kg 112 kg - Lab Result Diagrams: 03/21/20 04:25 03/21/20 04:25 Lab Results-Last 24 Hrs: Lab Results-Last 24 Hours 05/29/20 05/29/20 Range/Units 04:25 04:25 WBC 9.1 (4.0-10.5) K/mm3 RBC 4.22 (4.1-5.6) M/mm3 Hgb 10.5 L (12.5-18.0) gm/dl Hct 32.9 L (42-50) % MCV 78.0 (78-100) fl MCH 24.9 L (26-32) pg MCHC 31.9 L (32-36) g/dl RDW 22.0 H (11.5-14.0) % Plt Count 263 (150-450) K/mm3 MPV 10.5 (7.5-11.0) fl Sodium 129 L (137-145) mmol/L Potassium 4.1 (3.5-5.1) mmol/L Chloride 88 L (98-107) mmol/L Carbon Dioxide 29 (22-30) mmol/L Anion Gap 15.8 H (5-15) MEQ/L BUN 45 H (9-20) mg/dL Creatinine 1.45 H (0.66-1.25) mg/dL Estimated GFR 49.4 ML/MIN Glucose 107 H (74-106) mg/dL Calcium 8.7 (8.4-10.2) mg/dL Magnesium 1.9 (1.6-2.3) mg/dL Micro Results-Entire Visit: Microbiology 03/16/20 02:15 Blood Culture Gram Stain - Final Blood Not Reportable Blood Culture - Final NO GROWTH 03/16/20 01:55 Blood Culture Gram Stain - Final Blood Not Reportable Blood Culture - Final NO GROWTH - Procedures and Test Procedures and Tests throughout Hospitalization: Therapy Orders & Screens 03/16/20 05:00 BiPap/CPAP ROUTINE Comment: PT HM UNIT Diagnosis: Dig Toxicity 03/16/20 10:01 Oxygen Nasal Cannula 2 lpm Comment: 2L AT NIGHT WITH CPAP Diagnosis: Dig Toxicity 03/16/20 10:02 Respiratory Therapy Assessment DAILY Comment: Diagnosis: Dig Toxicity 03/18/20 09:05 PT Eval & Treat ( Order) ROUTINE Reason for Eval:: weakness Diagnosis: CHF, LOWER GI BLEED, DIG TOXICITY Discharge Exam General Appearance: no apparent distress, alert Neurologic Exam: oriented x 3, cooperative Eye Exam: eyes nml inspection Ears, Nose, Throat Exam: moist mucous membranes Respiratory Exam: normal breath sounds, lungs clear, No rhonchi, No wheezing Cardiovascular Exam: normal heart sounds, irregular Gastrointestinal/Abdomen Exam: soft, normal bowel sounds, No tenderness, No distention, No guarding, No rebound Back Exam: normal inspection, No rash Extremity Exam: swelling, other (LE bilat edematous, nonpitting, but appears less than yesterday. Mild erythema L anterior lower leg.) Final Diagnosis/Problem List - Final Discharge Diagnosis/Problem (1) Acute CHF (congestive heart failure) Current Visit: Yes Status: Acute Assessment & Plan: acute on chronic. Improving. Code(s): I50.9 - HEART FAILURE, UNSPECIFIED (2) Atrial fibrillation Current Visit: No Status: Chronic Code(s): I48.91 - UNSPECIFIED ATRIAL FIBRILLATION (3) Hypertensive heart disease with congestive heart failure Current Visit: Yes Status: Chronic Code(s): I11.0 - HYPERTENSIVE HEART DISEASE WITH HEART FAILURE (4) Anemia Current Visit: Yes Status: Acute Code(s): D64.9 - ANEMIA, UNSPECIFIED (5) Epistaxis Current Visit: Yes Status: Chronic Code(s): R04.0 - EPISTAXIS (6) Renal insufficiency Current Visit: Yes Status: Chronic (7) GI bleed Current Visit: Yes Status: Acute Code(s): K92.2 - GASTROINTESTINAL HEMORRHAGE, UNSPECIFIED - Discharge Disposition: Swing Bed @ [facility] Condition: Fair Prescriptions: Discontinued Fexofenadine HCl [Liyah Allergy] 180 mg PO DAILY Magnesium Oxide 400 mg [Mag-Ox 400] 400 mg PO DAILY #30 tablet No Action Bumetanide 1 mg [Bumex 1 mg] 1.5 mg PO BID Digoxin 0.125 mg Tablet [Lanoxin 0.125MG TABLET] 125 mcg PO DAILY Potassium Chloride [Klor-Con 10] 10 meq PO TID Metoprolol Succinate 50 mg [Toprol Xl 50 MG] 25 mg PO BID Alprazolam 0.25 mg [xanAX 0.25 MG] 0.25 mg PO BIDPRN PRN PRN Reason: Anxiety Albuterol Sulfate [Proair Hfa] 2 puffs PO QID Budesonide/Formoterol Fumarate [Symbicort 80-4.5 Mcg Inhaler] 2 puffs PO BID Acetaminophen 325 mg [Tylenol 325 mg] 650 mg PO Q4H PRN PRN PRN Reason: Pain Fluticasone Propionate [Flonase Allergy Relief] 1 spray IH DAILY PRN PRN PRN Reason: Allergies Levothyroxine Sodium 25 Mcg [Synthroid 25 Mcg] 50 mcg PO DAILY metOLazone [Metolazone] 5 mg PO BID Apixaban [Eliquis] 2.5 mg PO BID Montelukast Sodium 10 mg [Singulair 10 MG] 10 mg PO DAILY Diclofenac Sodium/Misoprostol* [Arthrotec 50MG/200 mcg Tablet EC] 50 mg PO BID Magnesium Oxide 400 mg [Mag-Ox 400] 400 mg PO BID Cyclosporine [Restasis] 1 each OP BID Follow up with: MAURICE DAS [ACTIVE STAFF] - 03/27/20 2:00 pm VISHNU GARCIA MD [Primary Care Provider] - 03/28/20 11:30 am (at [facility])
== END 2020-03-21 16:05 | disposition swing bed (61) | DRG 292 ==
LOC: ED 00:58 → ICU 04:32 → OBSVTOIN 16:29 → MED SURG 03-21 12:30
PROVIDERS: ADMIT Family Medicine; ATTEND Family Medicine
PROC: 0DJD8ZZ Inspection of Lower Intestinal Tract, Via Natural or Artificial Opening Endoscopic (ICD-10-PCS; principal; 2020-03-20)
DX: I50.9 Heart failure, unspecified (principal); E87.1 Hypo-osmolality and hyponatremia; I11.0 Hypertensive heart disease with heart failure; K57.30 Diverticulosis of large intestine without perforation or abscess without bleeding; I48.91 Unspecified atrial fibrillation; K92.2 Gastrointestinal hemorrhage, unspecified; D64.9 Anemia, unspecified; R04.0 Epistaxis; T46.0X5A Adverse effect of cardiac-stimulant glycosides and drugs of similar action, initial encounter; N28.9 Disorder of kidney and ureter, unspecified; R53.83 Other fatigue; R79.89 Other specified abnormal findings of blood chemistry; R53.1 Weakness; G47.30 Sleep apnea, unspecified; Z79.01 Long term (current) use of anticoagulants; Z79.899 Other long term (current) drug therapy
CPT/HCPCS: 36000; 36415; 36430; 45378; 51702; 71045; 80048; 80053; 80162; 81001; 82150; 82805; 83605; 83690; 83735; 83880; 84134; 84443; 84484; 85014; 85018; 85025; 85027; 85379; 85610; 85730; 86850; 86900; 86901; 86922; 87040; 93005; 93306; 94640; 94762; 96374; 97161; 97530; 99285; P9016; 99100; J1650; J1940; J2704; A9270-GY

== ENCOUNTER 2020-03-21 09:44 | Inpatient (IN) | payer MEDICARE, OTHER ==
[2020-03-21] MEDS ORDERED: Sodium Chloride 0.9% 10 ML FLUSH Syringe IV PRN (16:38)
[2020-03-21] MEDS ORDERED: Aplisol ID ONE (16:38)
[2020-03-21] MEDS: Zaroxolyn 2.5 MG PO SCH (17:23)
[2020-03-21] MEDS: VENTOLIN COMMON CANISTER IH SCH (19:21)
[2020-03-21] MEDS: Advair Hfa 115/21 Common canister IH SCH (19:21)
[2020-03-21] MEDS: Klor Con 10 MEQ PO SCH (22:33)
[2020-03-21] MEDS: Sodium Chloride 0.9% 10 ML FLUSH Syringe IV SCH (22:33)
[2020-03-21] MEDS: Toprol-Xl 25MG Tablets PO SCH (22:33)
[2020-03-21] MEDS: MAG-OX 400 PO SCH (22:33)
[2020-03-21] MEDS: xanAX 0.25 MG PO PRN (22:39)
[2020-03-21] MEDS: PATIENT OWN MEDICATION OP SCH (22:40)
[2020-03-22] MEDS: Sodium Chloride 0.9% 10 ML FLUSH Syringe IV SCH ×3 (06:37→21:14)
[2020-03-22 06:41] LABS: ANION GAP 13.7 MEQ/L (5-15); BLOOD UREA NITROGEN 44 mg/dL (9-20); CHLORIDE 88 mmol/L (98-107); Calcium 8.5 mg/dL (8.4-10.2); Carbon Dioxide 27 mmol/L (22-30); Creatinine 1 1.22 mg/dL (0.66-1.25); Glucose 95 mg/dL (74-106); Potassium 3.8 mmol/L (3.5-5.1); SODIUM 125 mmol/L (137-145)
[2020-03-22 07:03] LABS: Hematocrit 30.2 % (42-50); Hemoglobin 9.7 gm/dl (12.5-18.0); Mean Cell Volume 77.4 fl (78-100); Mean Corpuscular Hemoglobin 24.9 pg (26-32); Mean Corpuscular Hgb Concent. 32.1 g/dl (32-36); Mean Platelet Volume 9.8 fl (7.5-11.0); Platelet Count 236 K/mm3 (150-450); Red Cell Distribution Width 21.5 % (11.5-14.0); White Blood Count 7.9 K/mm3 (4.0-10.5)
[2020-03-22] MEDS: TYLENOL 325 MG PO PRN (08:11)
[2020-03-22] MEDS: SYNTHROID 50 MCG PO SCH (08:12)
[2020-03-22] MEDS: Zaroxolyn 2.5 MG PO SCH ×2 (08:12→17:20)
[2020-03-22] MEDS: Klor Con 10 MEQ PO SCH ×3 (08:13→21:12)
[2020-03-22] MEDS: Singulair 10 MG PO SCH (08:13)
[2020-03-22] MEDS: Zestril 5 MG PO SCH (08:14)
[2020-03-22] MEDS: Toprol-Xl 25MG Tablets PO SCH ×2 (08:14→21:13)
[2020-03-22] MEDS: MAG-OX 400 PO SCH ×2 (08:15→21:13)
[2020-03-22] MEDS: ENOXAPARIN SODIUM SQ SCH (08:16)
[2020-03-22] MEDS: Furosemide 100mg/10 ml Vial IV SCH (08:17)
[2020-03-22] MEDS: VENTOLIN COMMON CANISTER IH SCH ×2 (09:23→18:42)
[2020-03-22] MEDS: Advair Hfa 115/21 Common canister IH SCH ×2 (09:23→18:44)
[2020-03-22] MEDS ORDERED: Aplisol ID SCH (10:00)
[2020-03-22] MEDS: PATIENT OWN MEDICATION OP SCH ×2 (11:46→21:13)
[2020-03-22] MEDS: NORCO 5/325 MG PO PRN (18:03)
[2020-03-23] MEDS: Sodium Chloride 0.9% 10 ML FLUSH Syringe IV SCH ×3 (06:18→21:38)
[2020-03-23] MEDS: NORCO 5/325 MG PO PRN ×3 (06:55→18:08)
[2020-03-23 06:56] LABS: Hematocrit 31.9 % (42-50); Hemoglobin 10.3 gm/dl (12.5-18.0); Mean Cell Volume 78.8 fl (78-100); Mean Corpuscular Hemoglobin 25.4 pg (26-32); Mean Corpuscular Hgb Concent. 32.3 g/dl (32-36); Mean Platelet Volume 10.5 fl (7.5-11.0); Platelet Count 239 K/mm3 (150-450); Red Blood Count 4.05 M/mm3 (4.1-5.6); Red Cell Distribution Width 21.7 % (11.5-14.0); White Blood Count 8.7 K/mm3 (4.0-10.5)
[2020-03-23 07:02] LABS: ANION GAP 15.4 MEQ/L (5-15); Calcium 8.7 mg/dL (8.4-10.2); Creatinine 1 1.25 mg/dL (0.66-1.25); MAGNESIUM 2.1 mg/dL (1.6-2.3); Potassium 3.8 mmol/L (3.5-5.1)
[2020-03-23] MEDS: VENTOLIN COMMON CANISTER IH SCH ×2 (07:20→19:20)
[2020-03-23] MEDS: Advair Hfa 115/21 Common canister IH SCH ×2 (07:21→19:20)
[2020-03-23] MEDS: Singulair 10 MG PO SCH (09:24)
[2020-03-23] MEDS: MAG-OX 400 PO SCH ×2 (09:24→21:38)
[2020-03-23] MEDS: SYNTHROID 50 MCG PO SCH (09:24)
[2020-03-23] MEDS: Zestril 5 MG PO SCH (09:24)
[2020-03-23] MEDS: Furosemide 100mg/10 ml Vial IV SCH (09:24)
[2020-03-23] MEDS: Toprol-Xl 25MG Tablets PO SCH ×2 (09:24→21:38)
[2020-03-23] MEDS: Zaroxolyn 2.5 MG PO SCH ×2 (09:25→16:45)
[2020-03-23] MEDS: Klor Con 10 MEQ PO SCH ×3 (09:26→21:38)
[2020-03-23] MEDS: ENOXAPARIN SODIUM SQ SCH (09:26)
[2020-03-23] MEDS: PATIENT OWN MEDICATION OP SCH ×2 (09:28→21:38)
[2020-03-23] MEDS: TYLENOL 325 MG PO PRN (21:37)
[2020-03-24 05:18] LABS: Hematocrit 31.8 % (42-50); Mean Cell Volume 79.1 fl (78-100); Mean Corpuscular Hemoglobin 24.9 pg (26-32); Mean Corpuscular Hgb Concent. 31.4 g/dl (32-36); Mean Platelet Volume 10.6 fl (7.5-11.0); Platelet Count 252 K/mm3 (150-450); Red Blood Count 4.02 M/mm3 (4.1-5.6); White Blood Count 7.2 K/mm3 (4.0-10.5)
[2020-03-24 05:43] LABS: ANION GAP 14.5 MEQ/L (5-15); Calcium 8.6 mg/dL (8.4-10.2); Creatinine 1 1.3 mg/dL (0.66-1.25); Potassium 3.6 mmol/L (3.5-5.1)
[2020-03-24] MEDS: Sodium Chloride 0.9% 10 ML FLUSH Syringe IV SCH ×3 (06:29→21:33)
[2020-03-24] MEDS: VENTOLIN COMMON CANISTER IH SCH ×2 (06:57→18:29)
[2020-03-24] MEDS: Advair Hfa 115/21 Common canister IH SCH ×2 (06:57→18:29)
[2020-03-24] MEDS: TYLENOL 325 MG PO PRN ×3 (07:36→21:31)
[2020-03-24] MEDS: Singulair 10 MG PO SCH (09:12)
[2020-03-24] MEDS: Zaroxolyn 2.5 MG PO SCH ×2 (09:12→16:08)
[2020-03-24] MEDS: MAG-OX 400 PO SCH ×2 (09:13→21:32)
[2020-03-24] MEDS: Zestril 5 MG PO SCH (09:13)
[2020-03-24] MEDS: Toprol-Xl 25MG Tablets PO SCH ×2 (09:14→21:32)
[2020-03-24] MEDS: SYNTHROID 50 MCG PO SCH (09:14)
[2020-03-24] MEDS: Klor Con 10 MEQ PO SCH ×3 (09:14→21:32)
[2020-03-24] MEDS: Furosemide 100mg/10 ml Vial IV SCH (09:15)
[2020-03-24] MEDS: ENOXAPARIN SODIUM SQ SCH (09:15)
[2020-03-24] MEDS: PATIENT OWN MEDICATION OP SCH ×2 (09:22→21:32)
[2020-03-24] MEDS ORDERED: VENTOLIN COMMON CANISTER IH PRN (13:40)
[2020-03-24] MEDS ORDERED: Zofran 4 MG/2 ML VIAL IV PRN (15:43)
[2020-03-24] MEDS: Flonase NASAL NS PRN (16:09)
--- NOTE | 2020-03-24 17:18 | PCM.NOTE ---
Date and Time: 03/24/201713 Subjective Assessment: Patient reports that his ankles continue to be swollen. He has had some problems with his right hip hurting due to sciatica and PT is working with him while I am in the room with exercises for this and going to try ice as well. - Review of Systems Constitutional: Fatigue Respiratory: No Symptoms Cardiac: No Symptoms Musculoskeletal: Other (swelling of legs) Objective Exam General Appearance: no apparent distress, obese Neurologic Exam: alert, cooperative, normal mood/affect Skin Exam: normal color, warm, other (+ 2 edema to mid shins bilat) Respiratory Exam: normal breath sounds, lungs clear, No crackles/rales, No rhonchi, No wheezing Cardiovascular Exam: regular rate/rhythm, No murmur, No friction rub, No gallop Gastrointestinal/Abdomen Exam: soft, normal bowel sounds, No tenderness, No distention OBJECTIVE DATA Vital Signs: Vital Signs - 24 hr Temp Pulse Resp BP Pulse Ox 03/24/20 13:43 97 03/24/20 08:00 97.8 F 57 L 18 101/55 92 L 03/24/20 07:00 60 18 96 03/23/20 19:56 98.0 F 52 L 18 103/57 94 L Pain Assessment - Last Documented Pain Intensity 9 Pain Scale Used [facility] Intake and Output: Intake & Output 03/22/20 03/23/20 03/24/20 03/25/20 06:59 06:59 06:59 06:59 Intake Total 1020 580 900 360 Output Total 5075 5050 800 Balance -3055 -1435 100 360 Weight 109.8 kg 109.8 kg 108.7 kg Lab Results: Lab Results-Last 24 Hours 03/24/20 03/24/20 Range/Units 04:35 04:35 WBC 7.2 (4.0-10.5) K/mm3 RBC 4.02 L (4.1-5.6) M/mm3 Hgb 10.0 L (12.5-18.0) gm/dl Hct 31.8 L (42-50) % MCV 79.1 (78-100) fl MCH 24.9 L (26-32) pg MCHC 31.4 L (32-36) g/dl RDW 22.0 H (11.5-14.0) % Plt Count 252 (150-450) K/mm3 MPV 10.6 (7.5-11.0) fl Sodium 123 L (137-145) mmol/L Potassium 3.6 (3.5-5.1) mmol/L Chloride 84 L (98-107) mmol/L Carbon Dioxide 28 (22-30) mmol/L Anion Gap 14.5 (5-15) MEQ/L BUN 46 H (9-20) mg/dL Creatinine 1.30 H (0.66-1.25) mg/dL Estimated GFR 56.0 ML/MIN Glucose 92 (74-106) mg/dL Calcium 8.6 (8.4-10.2) mg/dL Magnesium 2.0 (1.6-2.3) mg/dL Assessment/Plan (1) Chronic diastolic CHF (congestive heart failure) Current Visit: Yes Status: Acute Assessment & Plan: Patient was seen by his [employer] ticket checker during regular admission. He continues to have leg swelling. Will switch back to oral bumex 1.5 mg bid from furosimide IV as his sodium is going lower than it usually is. Code(s): I50.32 - CHRONIC DIASTOLIC (CONGESTIVE) HEART FAILURE (2) Atrial fibrillation Current Visit: No Status: Chronic Assessment & Plan: Checking with Dr. Ayala if he wants him back on Eliquis since colonoscopy as inpatient did not show bleeding. His rate is currently controlled. Code(s): I48.91 - UNSPECIFIED ATRIAL FIBRILLATION (3) Chronic hyponatremia Current Visit: Yes Status: Acute Code(s): E87.1 - HYPO-OSMOLALITY AND HYPONATREMIA (4) Anemia Current Visit: No Status: Acute Qualifiers: Anemia type: unspecified type Qualified Code(s): D64.9 - Anemia, unspecified Assessment & Plan: Had colonoscopy that did not show source of bleeding. Code(s): D64.9 - ANEMIA, UNSPECIFIED
[2020-03-24] MEDS: xanAX 0.25 MG PO PRN (21:32)
[2020-03-25 05:25] LABS: ANION GAP 13.3 MEQ/L (5-15); Calcium 8.6 mg/dL (8.4-10.2); Creatinine 1 1.33 mg/dL (0.66-1.25); Potassium 4.2 mmol/L (3.5-5.1)
[2020-03-25] MEDS: VENTOLIN COMMON CANISTER IH SCH (07:28)
[2020-03-25] MEDS: Advair Hfa 115/21 Common canister IH SCH (07:28)
[2020-03-25] MEDS: TYLENOL 325 MG PO PRN ×2 (09:56→21:33)
[2020-03-25] MEDS: ENOXAPARIN SODIUM SQ SCH (09:58)
[2020-03-25] MEDS: MAG-OX 400 PO SCH ×2 (09:59→21:25)
[2020-03-25] MEDS: Zestril 5 MG PO SCH (10:00)
[2020-03-25] MEDS: BUMEX 1 MG PO SCH ×2 (10:02→16:47)
[2020-03-25] MEDS: Zaroxolyn 2.5 MG PO SCH ×2 (10:03→16:46)
[2020-03-25] MEDS: Singulair 10 MG PO SCH (10:03)
[2020-03-25] MEDS: Toprol-Xl 25MG Tablets PO SCH ×2 (10:04→21:26)
[2020-03-25] MEDS: SYNTHROID 50 MCG PO SCH (10:04)
[2020-03-25] MEDS: Klor Con 10 MEQ PO SCH ×3 (10:05→21:25)
[2020-03-25] MEDS: PATIENT OWN MEDICATION OP SCH ×2 (10:06→21:29)
[2020-03-25] MEDS: Flonase NASAL NS PRN ×2 (10:57→22:50)
[2020-03-25] MEDS: ELIQUIS 2.5 MG TABLET PO SCH (21:25)
[2020-03-25] MEDS: Sodium Chloride 0.9% 10 ML FLUSH Syringe IV SCH (21:30)
[2020-03-26] MEDS: VENTOLIN COMMON CANISTER IH SCH ×3 (01:42→17:00)
[2020-03-26] MEDS: Advair Hfa 115/21 Common canister IH SCH ×3 (01:42→17:00)
[2020-03-26] MEDS: Sodium Chloride 0.9% 10 ML FLUSH Syringe IV SCH ×5 (06:31→20:53)
[2020-03-26] MEDS: TYLENOL 325 MG PO PRN ×2 (07:55→20:55)
[2020-03-26] MEDS: PATIENT OWN MEDICATION OP SCH ×2 (09:38→20:53)
[2020-03-26] MEDS: Zaroxolyn 2.5 MG PO SCH ×2 (09:41→16:51)
[2020-03-26] MEDS: Singulair 10 MG PO SCH (09:41)
[2020-03-26] MEDS: MAG-OX 400 PO SCH ×2 (09:42→20:52)
[2020-03-26] MEDS: Klor Con 10 MEQ PO SCH ×3 (09:42→20:52)
[2020-03-26] MEDS: SYNTHROID 50 MCG PO SCH (09:42)
[2020-03-26] MEDS: ELIQUIS 2.5 MG TABLET PO SCH ×2 (09:43→20:52)
[2020-03-26] MEDS: BUMEX 1 MG PO SCH ×2 (09:43→16:51)
[2020-03-26] MEDS: Zestril 5 MG PO SCH (09:44)
[2020-03-26] MEDS: Toprol-Xl 25MG Tablets PO SCH ×2 (09:45→20:55)
[2020-03-26] MEDS: Flonase NASAL NS PRN (20:59)
[2020-03-27] MEDS: TYLENOL 325 MG PO PRN ×2 (01:50→19:52)
[2020-03-27] MEDS: Sodium Chloride 0.9% 10 ML FLUSH Syringe IV SCH ×3 (06:58→19:56)
[2020-03-27] MEDS: VENTOLIN COMMON CANISTER IH SCH ×2 (07:25→17:15)
[2020-03-27] MEDS: Advair Hfa 115/21 Common canister IH SCH ×2 (07:25→17:15)
[2020-03-27] MEDS: Zestril 5 MG PO SCH (08:37)
[2020-03-27] MEDS: SYNTHROID 50 MCG PO SCH (08:37)
[2020-03-27] MEDS: Singulair 10 MG PO SCH (08:37)
[2020-03-27] MEDS: Zaroxolyn 2.5 MG PO SCH ×2 (08:37→16:44)
[2020-03-27] MEDS: ELIQUIS 2.5 MG TABLET PO SCH ×2 (08:37→19:55)
[2020-03-27] MEDS: BUMEX 1 MG PO SCH ×2 (08:37→16:44)
[2020-03-27] MEDS: Klor Con 10 MEQ PO SCH ×3 (08:37→19:53)
[2020-03-27] MEDS: PATIENT OWN MEDICATION OP SCH ×2 (08:38→19:56)
[2020-03-27] MEDS: MAG-OX 400 PO SCH ×2 (08:38→19:55)
[2020-03-27] MEDS: Toprol-Xl 25MG Tablets PO SCH ×2 (08:39→19:54)
[2020-03-28] MEDS: Sodium Chloride 0.9% 10 ML FLUSH Syringe IV SCH ×3 (06:25→22:50)
[2020-03-28] MEDS: TYLENOL 325 MG PO PRN ×3 (07:26→22:50)
[2020-03-28] MEDS: Advair Hfa 115/21 Common canister IH SCH ×2 (07:53→18:33)
[2020-03-28] MEDS: VENTOLIN COMMON CANISTER IH SCH ×2 (07:54→18:33)
[2020-03-28] MEDS: MAG-OX 400 PO SCH ×2 (10:21→22:39)
[2020-03-28] MEDS: Zaroxolyn 2.5 MG PO SCH ×2 (10:21→17:22)
[2020-03-28] MEDS: Klor Con 10 MEQ PO SCH ×3 (10:21→22:39)
[2020-03-28] MEDS: BUMEX 1 MG PO SCH ×2 (10:21→17:22)
[2020-03-28] MEDS: Singulair 10 MG PO SCH (10:21)
[2020-03-28] MEDS: Toprol-Xl 25MG Tablets PO SCH ×2 (10:22→22:40)
[2020-03-28] MEDS: Zestril 5 MG PO SCH (10:22)
[2020-03-28] MEDS: SYNTHROID 50 MCG PO SCH (10:22)
[2020-03-28] MEDS: ELIQUIS 2.5 MG TABLET PO SCH ×2 (10:22→22:39)
[2020-03-28] MEDS: PATIENT OWN MEDICATION OP SCH ×2 (10:23→22:41)
[2020-03-28] MEDS ORDERED: Tums EX 750 MG ONE (17:20)
[2020-03-28] MEDS ORDERED: Tums EX 750 MG PO SCH (17:30)
[2020-03-29] MEDS: TYLENOL 325 MG PO PRN ×3 (03:13→22:24)
[2020-03-29] MEDS: Sodium Chloride 0.9% 10 ML FLUSH Syringe IV SCH ×3 (03:17→21:45)
[2020-03-29] MEDS: Advair Hfa 115/21 Common canister IH SCH ×2 (07:17→19:10)
[2020-03-29] MEDS: VENTOLIN COMMON CANISTER IH SCH ×2 (07:17→19:10)
[2020-03-29] MEDS: Singulair 10 MG PO SCH (10:46)
[2020-03-29] MEDS: SYNTHROID 50 MCG PO SCH (10:46)
[2020-03-29] MEDS: ELIQUIS 2.5 MG TABLET PO SCH ×2 (10:46→21:44)
[2020-03-29] MEDS: BUMEX 1 MG PO SCH ×2 (10:46→18:05)
[2020-03-29] MEDS: Klor Con 10 MEQ PO SCH ×3 (10:47→21:43)
[2020-03-29] MEDS: Zestril 5 MG PO SCH (10:47)
[2020-03-29] MEDS: Zaroxolyn 2.5 MG PO SCH ×2 (10:47→18:04)
[2020-03-29] MEDS: MAG-OX 400 PO SCH ×2 (10:48→21:43)
[2020-03-29] MEDS: Toprol-Xl 25MG Tablets PO SCH ×2 (10:48→21:46)
[2020-03-29] MEDS: PATIENT OWN MEDICATION OP SCH ×2 (10:50→22:18)
[2020-03-30] MEDS: Sodium Chloride 0.9% 10 ML FLUSH Syringe IV SCH ×3 (06:32→22:00)
[2020-03-30] MEDS: TYLENOL 325 MG PO PRN ×3 (07:02→21:30)
[2020-03-30] MEDS: Advair Hfa 115/21 Common canister IH SCH ×2 (08:30→19:42)
[2020-03-30] MEDS: VENTOLIN COMMON CANISTER IH SCH ×2 (08:30→19:42)
[2020-03-30] MEDS: SYNTHROID 50 MCG PO SCH (09:53)
[2020-03-30] MEDS: MAG-OX 400 PO SCH ×2 (09:53→21:31)
[2020-03-30] MEDS: Singulair 10 MG PO SCH (09:53)
[2020-03-30] MEDS: BUMEX 1 MG PO SCH ×2 (09:53→16:54)
[2020-03-30] MEDS: ELIQUIS 2.5 MG TABLET PO SCH ×2 (09:53→21:32)
[2020-03-30] MEDS: Toprol-Xl 25MG Tablets PO SCH ×2 (09:55→23:40)
[2020-03-30] MEDS: Zaroxolyn 2.5 MG PO SCH ×2 (09:55→16:54)
[2020-03-30] MEDS: Klor Con 10 MEQ PO SCH ×3 (09:55→21:31)
[2020-03-30] MEDS: PATIENT OWN MEDICATION OP SCH ×2 (09:56→22:00)
[2020-03-30] MEDS: Zestril 5 MG PO SCH (09:57)
[2020-03-31] MEDS: TYLENOL 325 MG PO PRN (03:40)
[2020-03-31] MEDS: Advair Hfa 115/21 Common canister IH SCH (07:05)
[2020-03-31] MEDS: VENTOLIN COMMON CANISTER IH SCH (07:05)
[2020-03-31] MEDS: Flonase NASAL NS PRN (07:33)
[2020-03-31 07:36] VITALS: BP 120/59; PULSE 74; O2SAT 95
--- NOTE | 2020-03-31 08:30 | PCM.NOTE ---
Date and Time: 03/31/20827 Subjective Assessment: patient reports his swelling is improved, overall he feels well and would like to go home. states he has a lift chair and walker at home and he is able to get to the restroom with those. he lives with his , states he has been doing therapy and walked yesterday. Objective Exam General Appearance: no apparent distress, alert Neurologic Exam: alert, oriented x 3 Respiratory Exam: normal breath sounds, lungs clear, No respiratory distress Cardiovascular Exam: regular rate/rhythm, normal heart sounds Extremity Exam: pedal edema, swelling OBJECTIVE DATA Vital Signs: Vital Signs - 24 hr Temp Pulse Resp BP Pulse Ox 03/31/20 07:35 98.1 F 74 19 120/59 95 03/31/20 07:07 60 18 96 03/30/20 19:50 57 L 18 97 03/30/20 19:47 98.2 F 51 L 18 116/58 97 03/30/20 09:26 81 18 97 Pain Assessment - Last Documented Pain Intensity 4 Pain Scale Used 0-10 Pain Scale Intake and Output: Intake & Output 03/28/20 03/29/20 03/30/20 03/31/20 11:59 11:59 11:59 11:59 Intake Total 1290 1620 1020 960 Output Total 3425 3950 1400 3950 Balance -4206 -4445 -380 -2990 Weight 108.3 kg 111.1 kg 111.1 kg 111.6 kg Assessment/Plan (1) Chronic diastolic CHF (congestive heart failure) Current Visit: Yes Status: Acute Assessment & Plan: check labs today, doing well on po meds, nothing IV at this time. if able to ambulate to restroom etc could consider to d/c home with home health consult pending PT input Code(s): I50.32 - CHRONIC DIASTOLIC (CONGESTIVE) HEART FAILURE (2) Chronic hyponatremia Current Visit: Yes Status: Acute Assessment & Plan: repeat labs today Code(s): E87.1 - HYPO-OSMOLALITY AND HYPONATREMIA
[2020-03-31] MEDS: Zaroxolyn 2.5 MG PO SCH (08:46)
[2020-03-31] MEDS: BUMEX 1 MG PO SCH (08:46)
[2020-03-31] MEDS: Klor Con 10 MEQ PO SCH ×2 (08:48→14:43)
[2020-03-31] MEDS: ELIQUIS 2.5 MG TABLET PO SCH (08:48)
[2020-03-31] MEDS: MAG-OX 400 PO SCH (08:48)
[2020-03-31] MEDS: SYNTHROID 50 MCG PO SCH (08:49)
[2020-03-31] MEDS: Singulair 10 MG PO SCH (08:49)
[2020-03-31] MEDS: Toprol-Xl 25MG Tablets PO SCH (08:51)
[2020-03-31] MEDS: Zestril 5 MG PO SCH (08:51)
[2020-03-31] MEDS: PATIENT OWN MEDICATION OP SCH (08:56)
[2020-03-31 08:58] LABS: Absolute Neutrophil Ct (ANC) 3.64 (1.4-6.9); BASOPHIL % 0.5 % (0.0-0.4); Basophil (Absolute #) 0.03 (0-0.4); Eosinophil % 2.9 % (0.00-5.0); Eosinophil (Absolute #) 0.17 (0-0.5); Hematocrit 30.9 % (42-50); Hemoglobin 10.3 gm/dl (12.5-18.0); Lymphocyte (Absolute #) 1.13 (1.0-4.6); Mean Cell Volume 76.9 fl (78-100); Mean Corpuscular Hemoglobin 25.6 pg (26-32); Mean Corpuscular Hgb Concent. 33.3 g/dl (32-36); Mean Platelet Volume 9.6 fl (7.5-11.0); Monocyte (Absolute #) 0.98 (0.0-1.3); Monocytes % 16.5 % (0.0-12.0); Neutrophil % 61.1 % (36.0-66.0); Platelet Count 313 K/mm3 (150-450); Red Blood Count 4.02 M/mm3 (4.1-5.6); Red Cell Distribution Width 20.6 % (11.5-14.0)
[2020-03-31 09:47] LABS: ANION GAP 15.6 MEQ/L (5-15); BLOOD UREA NITROGEN 54 mg/dL (9-20); CHLORIDE 83 mmol/L (98-107); Calcium 8.8 mg/dL (8.4-10.2); Carbon Dioxide 26 mmol/L (22-30); Creatinine 1 1.16 mg/dL (0.66-1.25); Glucose 103 mg/dL (74-106); Potassium 3.9 mmol/L (3.5-5.1); SODIUM 121 mmol/L (137-145)
--- NOTE | 2020-03-31 13:52 | PCM.DS ---
Discharge Summary Date of Admission: 03/21/20 16:05 Admitting Physician: JUAN QUINTANILLA Primary Care Provider: RADHA,VISHNU Allergies Allergies iodine Allergy (Severe, Verified 04/02/19 17:57) Difficulty Breathing shellfish derived Allergy (Severe, Verified 04/02/19 17:57) Difficulty Breathing Hospital Summary - Hospital Course Hospital Course: patient was admitted with swelling and low sodium, has had meds adjusted and was in swingbed for PT consult. he is improved and able to ambulate to restroom , he has a lift chair at home and uses a walker and feels like he will be able to care for himself as per usual at home. - Vitals & Intake/Output Vital Signs: Vital Signs Temperature 98.1 F 03/31/20 07:35 Pulse Rate 74 03/31/20 07:35 Respiratory Rate 19 03/31/20 07:35 Blood Pressure 120/59 03/31/20 07:35 O2 Sat by Pulse Oximetry 95 03/31/20 07:35 Intake & Output: Intake & Output 03/29/20 03/30/20 03/31/20 04/01/20 11:59 11:59 11:59 11:59 Intake Total 1620 1020 960 Output Total 3950 1400 3950 Balance -2330 380 -2990 Weight 111.1 kg 111.1 kg 111.6 kg - Lab Result Diagrams: 03/31/20 08:45 03/31/20 08:45 Lab Results-Last 24 Hrs: Lab Results-Last 24 Hours 03/31/20 03/31/20 Range/Units 08:45 08:45 WBC 6.0 (4.0-10.5) K/mm3 RBC 4.02 L (4.1-5.6) M/mm3 Hgb 10.3 L (12.5-18.0) gm/dl Hct 30.9 L (42-50) % MCV 76.9 L (78-100) fl MCH 25.6 L (26-32) pg MCHC 33.3 (32-36) g/dl RDW 20.6 H (11.5-14.0) % Plt Count 313 (150-450) K/mm3 MPV 9.6 (7.5-11.0) fl Gran % 61.1 (36.0-66.0) % Eos # (Auto) 0.17 (0-0.5) Absolute Lymphs (auto) 1.13 (1.0-4.6) Absolute Monos (auto) 0.98 (0.0-1.3) Lymphocytes % 19.0 L (24.0-44.0) % Monocytes % 16.5 H (0.0-12.0) % Eosinophils % 2.9 (0.00-5.0) % Basophils % 0.5 (0.0-0.4) % Absolute Granulocytes 3.64 (1.4-6.9) Basophils # 0.03 (0-0.4) Sodium 121 L (137-145) mmol/L Potassium 3.9 (3.5-5.1) mmol/L Chloride 83 L (98-107) mmol/L Carbon Dioxide 26 (22-30) mmol/L Anion Gap 15.6 H (5-15) MEQ/L BUN 54 H (9-20) mg/dL Creatinine 1.16 (0.66-1.25) mg/dL Estimated GFR > 60.0 ML/MIN Glucose 103 (74-106) mg/dL Calcium 8.8 (8.4-10.2) mg/dL - Procedures and Test Procedures and Tests throughout Hospitalization: Therapy Orders & Screens 03/21/20 16:38 PT Eval & Treat ( Order) ROUTINE Reason for Eval:: GERERALIZED WEAKNESS, S/P FALL Diagnosis: Dig Toxicity BiPap/CPAP ROUTINE Comment: PT HM UNIT Diagnosis: Dig Toxicity Oxygen Nasal Cannula 2 lpm Comment: 2L AT NIGHT WITH CPAP Diagnosis: Dig Toxicity Respiratory Therapy Assessment DAILY Comment: Diagnosis: Dig Toxicity 03/21/20 17:30 PT Clarification Order ROUTINE Comment: Physician Instructions: Reason For Exam: PT Clarification: PT TO RX 5X/WK UNTIL D/C TO ADDRESS FUNCTIONAL MOBILITY AND GAIT TRAINING, THER EX, BALANCE/ENDURANCE ACTIVITIES, LE EDEMA MG'T AND SKIN CARE , AND PT. ED RE: SAFETY AWARENESS AND HEP TO MAXIMIZE FUNCTIONAL INDEPENDENCE FOR SAFE RETURN HOME. Discharge Exam General Appearance: no apparent distress Neurologic Exam: alert, oriented x 3 Respiratory Exam: normal breath sounds, lungs clear, No respiratory distress Cardiovascular Exam: regular rate/rhythm, normal heart sounds Gastrointestinal/Abdomen Exam: soft, No tenderness, No mass Extremity Exam: pedal edema, swelling Final Diagnosis/Problem List - Final Discharge Diagnosis/Problem (1) Chronic diastolic CHF (congestive heart failure) Current Visit: Yes Status: Acute Code(s): I50.32 - CHRONIC DIASTOLIC ( CONGESTIVE) HEART FAILURE (2) Chronic hyponatremia Current Visit: Yes Status: Acute Code(s): E87.1 - HYPO-OSMOLALITY AND HYPONATREMIA - Discharge Disposition: Home, Self-Care Condition: Stable Prescriptions: New Lisinopril 5 mg [Zestril 5 MG] 2.5 mg PO DAILY #30 tablet Continue Bumetanide 1 mg [Bumex 1 mg] 1.5 mg PO BID Digoxin 0.125 mg Tablet [Lanoxin 0.125MG TABLET] 125 mcg PO DAILY Potassium Chloride [Klor-Con 10] 10 meq PO TID Metoprolol Succinate 50 mg [Toprol Xl 50 MG] 25 mg PO BID Alprazolam 0.25 mg [xanAX 0.25 MG] 0.25 mg PO BIDPRN PRN PRN Reason: Anxiety Albuterol Sulfate [Proair Hfa] 2 puffs PO QID Budesonide/Formoterol Fumarate [Symbicort 80-4.5 Mcg Inhaler] 2 puffs PO BID Acetaminophen 325 mg [Tylenol 325 mg] 650 mg PO Q4H PRN PRN PRN Reason: Pain Fluticasone Propionate [Flonase Allergy Relief] 1 spray IH DAILY PRN PRN PRN Reason: Allergies Levothyroxine Sodium 25 Mcg [Synthroid 25 Mcg] 50 mcg PO DAILY metOLazone [Metolazone] 5 mg PO BID Apixaban [Eliquis] 2.5 mg PO BID Montelukast Sodium 10 mg [Singulair 10 MG] 10 mg PO DAILY Diclofenac Sodium/Misoprostol* [Arthrotec 50MG/200 mcg Tablet EC] 50 mg PO BID Magnesium Oxide 400 mg [Mag-Ox 400] 400 mg PO BID Cyclosporine [Restasis] 1 each OP BID Follow up with: VISHNU GARCIA MD [Primary Care Provider] - 1 Week
[2020-04-02] MEDS ORDERED: Aplisol ID SCH (10:00)
== END 2020-03-31 17:00 | disposition home or self-care (01) | DRG 292 ==
LOC: MED SURG 16:05
PROVIDERS: ADMIT Family Medicine; ATTEND Family Medicine
DX: I11.0 Hypertensive heart disease with heart failure (principal); E87.1 Hypo-osmolality and hyponatremia; I50.32 Chronic diastolic (congestive) heart failure; I10 Essential (primary) hypertension; J44.9 Chronic obstructive pulmonary disease, unspecified; G47.30 Sleep apnea, unspecified; I48.91 Unspecified atrial fibrillation; R79.89 Other specified abnormal findings of blood chemistry; M25.551 Pain in right hip; R53.83 Other fatigue; M79.89 Other specified soft tissue disorders; D64.9 Anemia, unspecified; Z79.899 Other long term (current) drug therapy; Z79.01 Long term (current) use of anticoagulants
CPT/HCPCS: 36415; 80048; 80162; 83735; 85025; 85027; 94640; 94760; A6457; J1650; J1940; J2405; 97110-GP; A9270-GY